=== PATIENT | male | born 1945 | race Caucasian/White ===

== ENCOUNTER → 2016-09-01 | Outpatient (CLI) | payer MEDICARE ==
[2016-09-01 10:02] LABS: BASO # 0.1 x10^3/uL (0.0-0.2); BASO % 1 % (0-3); EOS % 3 % (0-3); HEMATOCRIT 43.3 % (39.0-53.0); HEMOGLOBIN 14.8 g/dL (13.0-17.5); LYMPH # 1.9 x10^3/uL (1.0-4.8); LYMPH % 24 % (24-48); MEAN CORPUSCULAR HEMOGLOBIN 31 pg (25-35); MEAN CORPUSCULAR HGB CONC 34 g/dL (31-37); MEAN CORPUSCULAR VOLUME 91 fL (79-100); MONO % 10 % (0-9); NEUT % 63 % (31-73); PLATELET COUNT 288 x10^3/uL (140-400); RED BLOOD COUNT 4.77 x10^6/uL (4.30-5.70); RED CELL DISTRIBUTION WIDTH 12.9 % (11.5-14.5); WHITE BLOOD COUNT 7.8 x10^3/uL (4.0-11.0)
[2016-09-01 10:29] LABS: ALBUMIN 3.7 g/dL (3.4-5.0); CALCIUM 9.2 mg/dL (8.5-10.1); CREATININE 1.4 mg/dL (0.7-1.3); GFR 50.1; PHOSPHORUS 2.6 mg/dL (2.6-4.7); POTASSIUM 4.3 mmol/L (3.5-5.1)
[2016-09-02 04:19] LABS: PTH INTACT 27 pg/mL (15-65)
== END | disposition home or self-care (01) ==
LOC: LAB 09:26
PROVIDERS: ATTEND Internal Medicine Nephrology
DX: N18.3 Chronic kidney disease, stage 3 (moderate) (principal)
CPT/HCPCS: 36415; 80069; 83970; 85027

== ENCOUNTER → 2016-09-19 | Outpatient (CLI) | payer MEDICARE ==
[2016-09-19 08:23] LABS: ALBUMIN 3.9 g/dL (3.4-5.0); ALBUMIN/GLOBULIN RATIO 0.9 (1.0-1.7); CALCIUM 9.3 mg/dL (8.5-10.1); CREATININE 1.4 mg/dL (0.7-1.3); GFR 50.1; POTASSIUM 4.7 mmol/L (3.5-5.1); TOTAL BILIRUBIN 0.6 mg/dL (0.2-1.0); TOTAL PROTEIN 8.1 g/dL (6.4-8.2)
[2016-09-19 08:27] LABS: CHOLESTEROL/HDL RATIO 5.9
[2016-09-19 08:32] LABS: FREE T4 0.9 ng/dL (0.76-1.46)
== END | disposition home or self-care (01) ==
LOC: LAB 07:26
PROVIDERS: ATTEND Internal Medicine Cardiovascular Disease
DX: Z00.00 Encounter for general adult medical examination without abnormal findings (principal); Z12.5 Encounter for screening for malignant neoplasm of prostate; Z79.899 Other long term (current) drug therapy
CPT/HCPCS: 36415; 80053; 80061; 82043; 82570; 84439; 84443; G0103

== ENCOUNTER 2016-11-23 15:19 | Emergency (ER) | payer BC, MEDICARE ==
[~2016-11-23] VITALS: Ht 188 cm; Wt 140.6 kg
[2016-11-23 15:35] VITALS: BP 140/69
[2016-11-23] MEDS ORDERED: LIDOCAINE 1% / SOD BICARB 8.4% 20 ML VIAL. IJ ONE (15:45)
--- NOTE | 2016-11-23 15:48 | PHYS DOC ---
Past Medical History Past Medical History: Diabetes-Type II, Other Additional Past Medical Histor: OSTEOARTHRITIS, SKIN CANCER, NEUROPATHY Past Surgical History: Knee Replacement, Other Additional Past Surgical Histo: BILATERAL KNEE Alcohol Use: Rarely Drug Use: None Adult General Chief Complaint Chief Complaint: LACERATION/AVULSION [place] [employer] HPI Patient is a 71 year old male presents the emergency Department today with complaint of a facial/mouth injury as well as right elbow injury secondary to a fall from standing position onto a concrete walkway. Patient slipped on wet surface and was unable to gain any traction until he stumbled down a small hill and fell onto a concrete sidewalk. Patient states he struck his face on the sidewalk. He denies loss of consciousness. He denies taking anticoagulants. He denies being dazed or having memory lapses. He states that he's had a tetanus shot within the past 10 years but does not know specifically where after. Review of Systems Review of Systems Constitutional: Denies fever or chills [] Eyes: Denies change in visual acuity, redness, or eye pain [] HENT: Denies nasal congestion or sore throat [] Respiratory: Denies cough or shortness of breath [] Cardiovascular: No additional information not addressed in HPI [] GI: Denies abdominal pain, nausea, vomiting, bloody stools or diarrhea [] : Denies dysuria or hematuria [] Musculoskeletal: Denies back pain or joint pain [] Integument: Denies rash or skin lesions [] Neurologic: Denies headache, focal weakness or sensory changes [] Endocrine: Denies polyuria or polydipsia [] Current Medications Current Medications Current Medications Medications (Trade) Dose Ordered Sig/Meghana Start Time Stop Time Status Last Admin Dose Admin Acetaminophen/ Hydrocodone Bitart (Lortab 5/325) 1 tab 1X ONCE 11/23/16 16:00 11/23/16 16:05 DC 11/23/16 16:05 1 TAB Diphtheria/ Tetanus/Acell Pertussis (Boostrix) 0.5 ml ONCE ONCE 11/23/16 16:00 11/23/16 16:05 DC 11/23/16 15:48 0.5 ML Lidocaine/Sodium Bicarbonate (Buffered Lidocaine 1%) 20 ml 1X ONCE 11/23/16 15:45 11/23/16 16:05 DC 11/23/16 15:48 20 ML Allergies Allergies Allergies Coded Allergies Type Severity Reaction Last Updated Verified No Known Drug Allergies 11/23/16 No Physical Exam Physical Exam Constitutional: Well developed, well nourished, no acute distress, non-toxic appearance. Patient walked into the emergency department with a steady, unaided gait. HENT: Normocephalic, bilateral external ears normal, oropharynx moist, no oral exudates, nose normal. Patient has an irregular, abraded laceration above his right upper lip. His nose and facial bones are normal in appearance and nontender to palpation. There is no malocclusion or trismus. Patient's right anterior and lateral maxillary incisors are impacted, but otherwise stable in the tooth socket. There is no tongue or other dental injuries. Patient has no complaints of pain to his mandible. Eyes: PERRLA, EOMI, conjunctiva normal, no discharge. [] Neck: Normal range of motion, no tenderness, supple, no stridor. Patient has no complaints of neck pain. Cardiovascular:Heart rate regular rhythm, no murmur [] Lungs & Thorax: Bilateral breath sounds clear to auscultation [] Abdomen: Bowel sounds normal, soft, no tenderness, no masses, no pulsatile masses. [] Skin: Warm, dry, no erythema, no rash. [] Back: No tenderness, no CVA tenderness. [] Extremities: Right shoulder is normal in appearance and nontender palpation. Right elbow with mild bruising and swelling to the posterior lateral aspect of the elbow. There is no palpable defect, deformity, instability or crepitus. Patient is able to flex, extend, pronate and supinate without difficulty. Right forearm, wrist and hand are normal in appearance and nontender to palpation. Right hand is neurovascularly intact with capillary refill is 2 seconds in the fingers. Neurologic: Alert and oriented X 3, normal motor function, normal sensory function, no focal deficits noted. Psychologic: Affect normal, judgement normal, mood normal. [] Current Patient Data Vital Signs Vital Signs Date Time Temp Pulse Resp B/P Pulse Ox O2 Delivery O2 Flow Rate FiO2 11/23/16 15:35 98.2 96 20 95 Room Air 98.2 EKG EKG [] Radiology/Procedures Radiology/Procedures [facility] [address] [place] [address] IMAGING REPORT Signed PATIENT: VERONICA BONILLA ACCOUNT: [id number] : 1945 LOCATION: ER AGE: 71 SEX: M EXAM STATUS: REG ER ORD. PHYSICIAN: SERGIO MARSH REASON: pain after fall PROCEDURE: ELBOW RIGHT 3V Right elbow, 3 views, 11/23/2016: History: Trauma, pain There are moderate degenerative change at the elbow joint with prominent spurs. There is bowing of the anterior fat pad compatible with a small joint effusion. On one view there is a sharp linear lucency projected over the proximal radius. The appearance suggests a nondisplaced fracture, although this cannot be confirmed on the other views. IMPRESSION: 1. Moderate degenerative change. 2. Possible nondisplaced fracture of the proximal radius. 3. Elbow joint effusion. DICTATED and SIGNED BY: MALIK HDZ MD DATE: 11/23/161606 CC: SERGIO MARSH; VANDANA FROST MD; NON,STAFF ~ Procedure note: 2.5cm stellate laceration above right upper lip that is through and through was anesthetized with buffered 1% lidocaine. Wound was cleansed with Betadine solution and rinsed with saline. The cutaneous laceration was approximated utilizing 5-0 nylon in a simple interrupted fashion of a single layered closure for total of 5 stitches. 1.5 cm irregular laceration of the buccal mucosa was closed with 5-0 Vicryl in a simple interrupted fashion of a single-layer closure for total of 2 stitches. Patient tolerated the procedure well. Course & Med Decision Making Course & Med Decision Making Pertinent Labs and Imaging studies reviewed. (See chart for details) [] Dragon Disclaimer Dragon Disclaimer This electronic medical record was generated, in whole or in part, using a voice recognition dictation system. Departure Departure Impression: Primary Impression: Fracture of proximal end of radius Additional Impressions: Intraoral laceration Dental injury Disposition: 01 HOME, SELF-CARE Condition: IMPROVED Referrals: VANDANA FROST MD (PCP) CHIRS PORTER MD Patient Instructions: Arm Sling Use, [id number], Dental Injury, Mouth Laceration, [id number], Radial Head Fracture, Byeh-pr-Mbha Additional Instructions: 1. Take the medication as prescribed. 2. The sutures on the outside of the lip need to be removed in 5 days. The sutures on the inside of the lip will dissolve on their own. 3. Contact your dentist tomorrow to schedule follow-up appointment. Call the orthopedic doctor's number listed in this paperwork tomorrow to schedule follow- up appointment. 4. Review the discharge instructions provided for self-care and reasons to return to the emergency department. Scripts Amoxicillin 500 Mg [id number] Mg PO TID #30 CAP Prov:SERGIO MARSH 11/23/16 Hydrocodone/Apap 5-325 (Lafferty 5-325 Tablet)1 Each Tablet1 Tab PO PRN Q6HRS PRN PAIN #15 TAB Prov:SERGIO MARSH 11/23/16 Problem Qualifiers SERGIO MARSH November 23, 2016 15:48
[2016-11-23] MEDS ORDERED: HYDROCODONE/APAP 5/325MG TABLET. PO ONE (16:00)
[2016-11-23] MEDS ORDERED: DIPHTH,PERTUSS(ACELL),TET TOX 0.5 ML DISP.SYRIN. VAX IM ONE (16:00)
--- NOTE | 2016-11-23 16:12 | RAD ---
Right elbow, 3 views, 11/23/2016: History: Trauma, pain There are moderate degenerative change at the elbow joint with prominent spurs. There is bowing of the anterior fat pad compatible with a small joint effusion. On one view there is a sharp linear lucency projected over the proximal radius. The appearance suggests a nondisplaced fracture, although this cannot be confirmed on the other views. IMPRESSION: 1. Moderate degenerative change. 2. Possible nondisplaced fracture of the proximal radius. 3. Elbow joint effusion.
[2016-11-23] MEDS ORDERED: AMOX500C PO (16:41)
[2016-11-23] MEDS ORDERED: HYDR-971 PO (16:41)
== END 2016-11-23 16:47 | disposition home or self-care (01) ==
LOC: ER 15:19
DX: S52.101A Unspecified fracture of upper end of right radius, initial encounter for closed fracture (principal); S01.512A Laceration without foreign body of oral cavity, initial encounter; S09.93XA Unspecified injury of face, initial encounter; E11.9 Type 2 diabetes mellitus without complications; Z96.659 Presence of unspecified artificial knee joint; M19.90 Unspecified osteoarthritis, unspecified site; W01.0XXA Fall on same level from slipping, tripping and stumbling without subsequent striking against object, initial encounter; Y93.89 Activity, other specified; Y92.89 Other specified places as the place of occurrence of the external cause; Y99.8 Other external cause status
CPT/HCPCS: 12013; 73080; 90471; 90715; 99284-25

== ENCOUNTER 2017-01-25 10:46 | Inpatient (IN) | payer BC ==
[~2017-01-25] VITALS: Ht 188 cm; Wt 138.3 kg
[~2017-01-25 10:46] MED LIST: AMOX500C PO; HYDR-971 PO
[2017-01-25] MEDS ORDERED: DEXTROSE ORAL GEL 15 GM TUBE. ONE ×2 (11:30→11:44)
[2017-01-25 11:41] VITALS: BP 136/92
[2017-01-25] MEDS ORDERED: DEXTROSE 50% 25 GM / 50ML DISP.SYRIN. IV PRN ×2 (11:45→20:15)
[2017-01-25] MEDS ORDERED: DEXTROSE ORAL GEL 15 GM TUBE. PO PRN (11:45)
[2017-01-25] MEDS ORDERED: FUROSEMIDE 40 MG/4 ML VIAL. IVP ONE (11:45)
[2017-01-25] MEDS ORDERED: ENOXAPARIN 40 MG/0.4 ML SYRINGE. SQ SCH (11:45)
[2017-01-25 12:28] LABS: BASO % 1 % (0-3); EOS % 2 % (0-3); HEMATOCRIT 35.2 % (39.0-53.0); HEMOGLOBIN 11.4 g/dL (13.0-17.5); LYMPH # 0.9 x10^3/uL (1.0-4.8); LYMPH % 10 % (24-48); MEAN CORPUSCULAR HEMOGLOBIN 30 pg (25-35); MEAN CORPUSCULAR HGB CONC 32 g/dL (31-37); MEAN CORPUSCULAR VOLUME 92 fL (79-100); MONO % 10 % (0-9); NEUT % 79 % (31-73); PLATELET COUNT 459 x10^3/uL (140-400); RED BLOOD COUNT 3.81 x10^6/uL (4.30-5.70); RED CELL DISTRIBUTION WIDTH 16.7 % (11.5-14.5); WHITE BLOOD COUNT 9.5 x10^3/uL (4.0-11.0)
[2017-01-25 12:47] LABS: ALBUMIN 3.2 g/dL (3.4-5.0); ALBUMIN/GLOBULIN RATIO 0.6 (1.0-1.7); CALCIUM 8.4 mg/dL (8.5-10.1); CREATININE 1.6 mg/dL (0.7-1.3); GFR 42.9; POTASSIUM 4.2 mmol/L (3.5-5.1); TOTAL BILIRUBIN 0.6 mg/dL (0.2-1.0); TOTAL PROTEIN 8.2 g/dL (6.4-8.2)
--- NOTE | 2017-01-25 13:38 | PDOC2 ---
CARDIAC CONSULT DATE OF CONSULT Date of Consult DATE: 01/25/17 TIME: 13:25 REASON FOR CONSULT Reason for Consult: CHF Exacerbation REFERRING PHYSICIAN Referring Physician: Dr. Pastrana SOURCE Source: Chart review, Patient HISTORY OF PRESENT ILLNESS HISTORY OF PRESENT ILLNESS This is a 71 yo male who presented secondary to shortness of breath and LE edema. Patient reports symptoms have been present for the last couple of weeks. SOA worse recently. Associated with orthopnea. No chest pain, palpitations, dizziness, diaphoresis, or nausea/vomiting. Undergoing workup/preop evaluation for gastric bypass. Recently diagnosed with CLINT. No known h/o CHF. Cardiac cath 6-7 years ago with non-obstructive disease. PAST MEDICAL HISTORY Cardiovascular: CAD (nonobstructive ), HTN, Hyperlipidemia Pulmonary: Other (OAS) GI: GERD Heme/Onc: No pertinent hx, Other (Gorlin syndrome ) Hepatobiliary: No pertinent hx Psych: No pertinent hx Musculoskeletal: Osteoarthritis Rheumatologic: No pertinent hx Infectious disease: No pertinent hx ENT: No pertinent hx Renal/: Chronic renal insuff Endocrine: Diabetes Dermatology: No pertinent hx PAST SURGICAL HISTORY Past Surgical History: Total knee replacement (bilateral ) FAMILY HISTORY Family History: Coronary Artery Disease, Hypertension, Other (Gorlin syndrome ) SOCIAL HISTORY Smoke: No ALCOHOL: none Drugs: None Lives: with Family CURRENT MEDICATIONS CURRENT MEDICATIONS Current Medications Medications (Trade) Dose Ordered Sig/Meghana Route PRN Reason Start Time Stop Time Status Last Admin Dose Admin Furosemide (Lasix) 40 mg 1X ONCE IVP 01/25/17 11:45 01/25/17 11:46 DC 01/25/17 12:02 ALLERGIES ALLERGIES: Coded Allergies: No Known Drug Allergies (Unverified , 11/23/16) ROS Review of System 14 point ROS conducted with pertinent positives noted above in HPI. PHYSICAL EXAM General: Alert, Oriented X3, Cooperative, mild distress HEENT: Atraumatic, Mucous membr. moist/pink Lungs: Other (bibasilar crackles ) Heart: Regular rate, Normal S1, Normal S2, Other (distant heart tones ) Abdomen: Soft, No tenderness Extremities: Other (2+ bilateral LE pitting edema ) Skin: No significant lesion Neuro: Normal speech, Sensation intact Psych/Mental Status: Mental status NL, Mood NL MUSCULOSKELETAL: Osteoarthritic changes both hands VITALS VITALS Vital Signs Date Time Temp Pulse Resp B/P (MAP) Pulse Ox O2 Delivery O2 Flow Rate FiO2 7/5/17 11:41 98.9 82 24 136/92 (107) 94 Room Air 98.9 LABS Lab: Laboratory Tests Test 01/25/17 11:37 01/25/17 12:05 01/25/17 12:15 Glucose (Fingerstick) 35 mg/dL (70-99) 67 mg/dL (70-99) White Blood Count 9.5 x10^3/uL (4.0-11.0) Red Blood Count 3.81 x10^6/uL (4.30-5.70) Hemoglobin 11.4 g/dL (13.0-17.5) Hematocrit 35.2 % (39.0-53.0) Mean Corpuscular Volume 92 fL (79-100) Mean Corpuscular Hemoglobin 30 pg (25-35) Mean Corpuscular Hemoglobin Concent 32 g/dL (31-37) Red Cell Distribution Width 16.7 % (11.5-14.5) Platelet Count 459 x10^3/uL (140-400) Neutrophils (%) (Auto) 79 % (31-73) Lymphocytes (%) (Auto) 10 % (24-48) Monocytes (%) (Auto) 10 % (0-9) Eosinophils (%) (Auto) 2 % (0-3) Basophils (%) (Auto) 1 % (0-3) Neutrophils # (Auto) 7.4 x10^3uL (1.8-7.7) Lymphocytes # (Auto) 0.9 x10^3/uL (1.0-4.8) Monocytes # (Auto) 0.9 x10^3/uL (0.0-1.1) Eosinophils # (Auto) 0.2 x10^3/uL (0.0-0.7) Basophils # (Auto) 0.0 x10^3/uL (0.0-0.2) Sodium Level 144 mmol/L (136-145) Potassium Level 4.2 mmol/L (3.5-5.1) Chloride Level 109 mmol/L (98-107) Carbon Dioxide Level 26 mmol/L (21-32) Anion Gap 9 (6-14) Blood Urea Nitrogen 32 mg/dL (8-26) Creatinine 1.6 mg/dL (0.7-1.3) Estimated GFR (Cockcroft-Gault) 42.9 BUN/Creatinine Ratio 20 (6-20) Glucose Level 73 mg/dL (70-99) Calcium Level 8.4 mg/dL (8.5-10.1) Magnesium Level 2.1 mg/dL (1.8-2.4) Total Bilirubin 0.6 mg/dL (0.2-1.0) Aspartate Amino Transf (AST/SGOT) 68 U/L (15-37) Alanine Aminotransferase (ALT/SGPT) 71 U/L (16-63) Alkaline Phosphatase 75 U/L (46-116) AH-Iiq-L-Type Natriuretic Peptide 466 pg/mL (0-124) Total Protein 8.2 g/dL (6.4-8.2) Albumin 3.2 g/dL (3.4-5.0) Albumin/Globulin Ratio 0.6 (1.0-1.7) ASSESSMENT/PLAN ASSESSMENT/PLAN 1. Acute on chronic heart failure 2. Hypertension; controlled 3. Hyperlipidemia 4. CAD; reportedly non-obstructive 5. CLINT 6. Diabetes 7. CKD 8. Morbid obesity Recommendations Check lipids, TSH, Mg Obtain echo to assess LV function Diuresis with monitoring of renal function CXR pending Consider further ischemic workup given history/risk factors to r/o obstructive CAD as contributor to dyspnea Further recommendations pending diagnostics. Problems: SABINO CLEMENTE APRN Jan 25, 2017 13:38
[2017-01-25 13:47] LABS: BILIRUBIN,URINE NEGATIVE (NEG); GLUCOSE,URINE NEGATIVE (NEG); NITRITE,URINE NEGATIVE (NEG); PROTEIN,URINE NEGATIVE (NEG-TRACE); UROBILINOGEN,URINE 0.2 mg/dL (0.2 mg/dL)
[2017-01-25 14:17] LABS: BACTERIA,URINE 0 /HPF (0-FEW); RBC,URINE 0 /HPF (0-2); WBC,URINE OCC /HPF (0-4)
--- NOTE | 2017-01-25 14:20 | EKG ---
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
--- NOTE | 2017-01-25 14:53 | RAD ---
Indication shortness of breath. History of congestive heart failure. 2 frontal views of the chest were obtained as well as a lateral view. Comparison is made to an examination 06/11/2010. There is generalized cardiomegaly. There is no congestive heart failure. A focal infiltrate is not seen. Significant pleural fluid is not seen. There is no pneumothorax. IMPRESSION: Generalized cardiomegaly. No focal or acute process is seen in the chest
[2017-01-25 14:54] VITALS: BP 109/71
[2017-01-25] MEDS: ASPIRIN ENTERIC COATED 81 MG TABLET.DR. PO SCH (15:00)
[2017-01-25] MEDS ORDERED: INSULIN ASPART 300 UNITS/3 ML INSULN.PEN SQ PRN (16:30)
--- NOTE | 2017-01-25 16:35 | CARD ---
APPROVED REPORT EXAM: Two-dimensional and M-mode echocardiogram with Doppler and color Doppler. Other Information Quality : GoodHR: 83bpm Rhythm : NSR INDICATION Dyspnea RISK FACTORS Obesity 2D DIMENSIONS RVDd3.4 (2.9-3.5cm)Left Atrium(2D)4.4 (1.6-4.0cm) IVSd0.9 (0.7-1.1cm)Aortic Root(2D)3.1 (2.0-3.7cm) LVDd4.9 (3.9-5.9cm)LVOT Diameter2.4 (1.8-2.4cm) PWd1.0 (0.7-1.1cm)LVDs3.2 (2.5-4.0cm) FS (%) 34.3 %SV69.6 ml LVEF(%)63.2 (>50%) Aortic Valve AoV Peak Marcos.170.7cm/sAoV VTI27.5cm AO Peak GR.11.7mmHgLVOT Peak Marcos.97.3cm/s AO Mean GR.6mmHgAVA (VMAX)2.48cm2 AI P 1/2 [id number] Mitral Valve MV E Wanvqoyt97.9cm/sMV E Peak Gr.3mmHg MV DECEL [id number] A Sbtrzepq44.9cm/s MV E Mean Gr.1mmHgE/A Ratio0.6 MV A [id number] Pulmonary Valve PV Peak Bjkpfuzs39.9cm/s Pulmonary Vein S1 Geuqrznn31.3cm/sD2 Xbhrotqt09.9cm/s PVa [id number] LEFT VENTRICLE The left ventricle is normal size. There is normal left ventricular wall thickness. The left ventricu lar systolic function is normal. The Ejection Fraction is 55-60%. There is normal LV segmental wall m otion. Transmitral Doppler flow pattern is Grade I-abnormal relaxation pattern. RIGHT VENTRICLE The right ventricle is normal size. There is normal right ventricular wall thickness. The right ventr icular systolic function is normal. ATRIA The left atrium size is normal. The right atrium size is normal. The interatrial septum is intact wit h no evidence for an atrial septal defect or patent foramen ovale as noted on 2-D or Doppler imaging. AORTIC VALVE The aortic valve is not well visualized but appears mildly calcified and opens well. Doppler and [place] r Flow revealed mild aortic regurgitation. There is no significant aortic valvular stenosis. MITRAL VALVE Mitral annular calcification is mild. The mitral valve leaflets are thickened. There is no evidence o f mitral valve prolapse. There is no mitral valve stenosis. Doppler and Color Flow revealed no mitral valve regurgitation noted. TRICUSPID VALVE Doppler and Color Flow revealed no tricuspid valve regurgitation noted. Unable to determine pulmonary artery pressure at exam time. PULMONIC VALVE The pulmonary valve is not well visualized but appears to opens well. Doppler and Color Flow revealed no pulmonic valvular regurgitation. There is no pulmonic valvular stenosis by spectral Doppler. GREAT VESSELS The aortic root is normal in size. The ascending aorta is normal in size. The pulmonary artery is nor mal. The IVC is dilated and does not collapse with inspiration. PERICARDIAL EFFUSION There is small right pleural effusion. Small amount of acites was noted in the subxiphoid region. The re is a moderate circumferential pericardial effusion. There is no evidence of diastolic compression of the right atrium at this time. There are no echocardiographic indications of cardiac tamponade. Critical Notification Critical Value: No <Conclusion> The left ventricular systolic function is normal. The Ejection Fraction is 55-60%. There is normal LV segmental wall motion. Transmitral Doppler flow pattern is Grade I-abnormal relaxation pattern. Doppler and Color Flow revealed mild aortic regurgitation. There is a moderate circumferential pericardial effusion. There are no echocardiographic indications of cardiac tamponade.
[2017-01-25] MEDS: FUROSEMIDE 40 MG/4 ML VIAL. IVP SCH (16:42)
[2017-01-25 17:41] VITALS: BP 136/92
[2017-01-25 19:41] VITALS: BP 114/67
[2017-01-25] MEDS ORDERED: POTA20TA4 PO (20:00)
[2017-01-25] MEDS ORDERED: ASPI-482 PO (20:00)
[2017-01-25] MEDS ORDERED: OMEG1CAP27 PO (20:00)
[2017-01-25] MEDS ORDERED: METO200T3 PO (20:00)
[2017-01-25] MEDS ORDERED: POTA20TA82 PO (20:00)
[2017-01-25] MEDS ORDERED: ATOR40TA59 PO (20:00)
[2017-01-25] MEDS ORDERED: LOSA1TAB18 PO (20:00)
[2017-01-25] MEDS ORDERED: METF750T2 PO (20:00)
[2017-01-25] MEDS ORDERED: FENO145T2 PO (20:00)
[2017-01-25] MEDS ORDERED: INSULIN DETEMIR 300 UNITS/3 ML INSULN.PEN. SQ SCH (21:00)
[2017-01-25] MEDS: ATORVASTATIN CALCIUM 40 MG TABLET. PO SCH (22:07)
[2017-01-25 22:08] VITALS: BP 113/75
[2017-01-26 03:16] VITALS: BP 112/69
[2017-01-26 04:11] LABS: CALCIUM 8.1 mg/dL (8.5-10.1); CREATININE 1.5 mg/dL (0.7-1.3); GFR 46.3; POTASSIUM 3.5 mmol/L (3.5-5.1)
[2017-01-26 04:19] LABS: CHOLESTEROL/HDL RATIO 3.7
[2017-01-26 07:00] VITALS: BP 130/73
[2017-01-26] MEDS ORDERED: metFORMIN XR 500 MG TAB.ER.24H PO SCH (08:00)
--- NOTE | 2017-01-26 08:46 | PDOC1 ---
History and Physical Date of Admission Date of Admission DATE: 01/25/17 TIME: 08:44 Past Medical History Cardiovascular: CAD (nonobstructive ), HTN, Hyperlipidemia Pulmonary: Other (OAS) GI: GERD Heme/Onc: No pertinent hx, Other (Gorlin syndrome ) Hepatobiliary: No pertinent hx Psych: No pertinent hx Musculoskeletal: Osteoarthritis Rheumatologic: No pertinent hx Infectious disease: No pertinent hx ENT: No pertinent hx Renal/: Chronic renal insuff Endocrine: Diabetes Dermatology: No pertinent hx Past Surgical History Past Surgical History: Total knee replacement (bilateral ) Family History Family History: Coronary Artery Disease, Hypertension, Other (Gorlin syndrome ) Social History Smoke: No ALCOHOL: none Drugs: None Current Medications Current Medications Current Medications Furosemide (Lasix) 40 mg [id number] IVP Last administered on 01/25/17 16:42; Start 01/25/17 at 14:00 Furosemide (Lasix) 40 mg 1X ONCE IVP Last administered on 01/25/17 12:02; Start 01/25/17 at 11:45; Stop 01/25/17 at 11:46; Status DC Glucose (Insta-Glucose) 15 gm STK-MED ONCE .ROUTE ; Start 01/25/17 at 11:44; Stop 01/25/17 at 11:45; Status DC Insulin Detemir (Levemir) 60 units BID SQ ; Start 01/25/17 at 21:00; Stop at 05:31; Status DC Dextrose (Dextrose 50%-Water Syringe) 12.5 gm PRN Q15MIN PRN IV SEE COMMENTS; Start 01/25/17 at 11:45 Glucose (Insta-Glucose) 15 gm PRN Q15MIN PRN PO LOW BLOOD SUGAR; Start 01/25/17 at 11:45 Insulin Aspart (NovoLOG) 25 units PRN TID PRN SQ IF FSBG IS >150 AC; Start 01/25 at 16:30; Stop 01/26/17 at 05:31; Status DC Enoxaparin Sodium (Lovenox 40mg Syringe) 40 mg Q24H SQ Last administered on 01/25 16:42; Start 01/25/17 at 11:45 Aspirin (Ecotrin) 81 mg DAILYWBKFT PO ; Start 01/25/17 at 15:00 Aspirin (Ecotrin) 81 mg DAILY PO ; Start 01/26/17 at 09:00; Status UNV Atorvastatin Calcium (Lipitor) 40 mg QHS PO Last administered on 01/25/17t 22:07 ; Start 01/25/17 at 21:00 Fenofibrate (Lofibra) 134 mg DAILY PO ; Start 01/26/17 at 09:00 Losartan Potassium (Cozaar) 100 mg DAILY PO ; Start 01/26/17 at 09:00 Metformin HCl (Glucophage Xr) 500 mg DAILYWBKFT PO ; Start 01/26/17 at 08:00; Stop 01/26/17 at 08:00; Status DC Metoprolol Succinate (Toprol Xl) 200 mg DAILY PO ; Start 01/26/17 at 09:00 Fish Oil (Fish Oil) 1,000 mg DAILY PO ; Start 01/26/17 at 09:00 Potassium Chloride (Klor-Con) 20 meq DAILYWBKFT PO ; Start 01/26/17 at 08:00 Dextrose (Dextrose 50%-Water Syringe) 12.5 gm PRN Q15MIN PRN IV SEE COMMENTS; Start 01/25/17 at 20:15 Hydrochlorothiazide (Microzide) 12.5 mg DAILY PO ; Start 01/26/17 at 09:00 Glucose (Insta-Glucose) 15 gm STK-MED ONCE .ROUTE ; Start 01/25/17 at 11:30; Stop 01/25/17 at 20:08; Status DC Active Scripts Active Amoxicillin 500 Mg Capsule 500 Mg PO TID [place] 5-325 Tablet (Acetaminophen/Hydrocodone Bitart) 1 Each Tablet 1 Tab PO PRN Q6HRS PRN Reported Klor-Con M20 (Potassium Chloride) 20 Meq Tab.er.prt 1 Tab PO DAILY Losartan-Hctz 100-12.5 Mg Tab (Losartan/Hydrochlorothiazide) 1 Each Tablet 1 Tab PO DAILY Metoprolol Succinate ( Xl ) (Metoprolol Succinate) 200 Mg Tab.er.24h 1 Tab PO DAILY Metformin Hcl Er (Metformin Hcl) 750 Mg Tab.er.24h 750 Mg PO DAILYWBKFT Fenofibrate (Fenofibrate Nanocrystallized) 145 Mg Tablet 1 Tab PO DAILY Atorvastatin Calcium 40 Mg Tablet 1 Tab PO QHS Potassium Chloride 20 Meq Tablet.er 20 Meq PO DAILY Aspir 81 (Aspirin) 81 Mg Tablet.dr 1 Tab PO DAILY Fish Oil 1,000 Mg Softgel ([place]-3 Fatty Acids/Fish Oil) 1 Each Capsule 1 Each PO DAILY Allergies Allergies: Coded Allergies: No Known Drug Allergies (Unverified , 11/23/16) Vitals Vitals Vital Signs Date Time Temp Pulse Resp B/P (MAP) Pulse Ox O2 Delivery O2 Flow Rate FiO2 01/26/17 07:00 97.8 85 22 130/73 (92) 94 97.8 01/26/17 03:16 Room Air 01/25/17 22:08 2.0 Labs Labs Laboratory Tests Test 01/25/17 11:37 01/25/17 12:05 01/25/17 12:15 01/25/17 13:04 Glucose (Fingerstick) 35 mg/dL (70-99) 67 mg/dL (70-99) White Blood Count 9.5 x10^3/uL (4.0-11.0) Red Blood Count 3.81 x10^6/uL (4.30-5.70) Hemoglobin 11.4 g/dL (13.0-17.5) Hematocrit 35.2 % (39.0-53.0) Mean Corpuscular Volume 92 fL (79-100) Mean Corpuscular Hemoglobin 30 pg (25-35) Mean Corpuscular Hemoglobin Concent 32 g/dL (31-37) Red Cell Distribution Width 16.7 % (11.5-14.5) Platelet Count 459 x10^3/uL (140-400) Neutrophils (%) (Auto) 79 % (31-73) Lymphocytes (%) (Auto) 10 % (24-48) Monocytes (%) (Auto) 10 % (0-9) Eosinophils (%) (Auto) 2 % (0-3) Basophils (%) (Auto) 1 % (0-3) Neutrophils # (Auto) 7.4 x10^3uL (1.8-7.7) Lymphocytes # (Auto) 0.9 x10^3/uL (1.0-4.8) Monocytes # (Auto) 0.9 x10^3/uL (0.0-1.1) Eosinophils # (Auto) 0.2 x10^3/uL (0.0-0.7) Basophils # (Auto) 0.0 x10^3/uL (0.0-0.2) Sodium Level 144 mmol/L (136-145) Potassium Level 4.2 mmol/L (3.5-5.1) Chloride Level 109 mmol/L (98-107) Carbon Dioxide Level 26 mmol/L (21-32) Anion Gap 9 (6-14) Blood Urea Nitrogen 32 mg/dL (8-26) Creatinine 1.6 mg/dL (0.7-1.3) Estimated GFR (Cockcroft-Gault) 42.9 BUN/Creatinine Ratio 20 (6-20) Glucose Level 73 mg/dL (70-99) Calcium Level 8.4 mg/dL (8.5-10.1) Magnesium Level 2.1 mg/dL (1.8-2.4) Total Bilirubin 0.6 mg/dL (0.2-1.0) Aspartate Amino Transf (AST/SGOT) 68 U/L (15-37) Alanine Aminotransferase (ALT/SGPT) 71 U/L (16-63) Alkaline Phosphatase 75 U/L (46-116) XE-Hel-G-Type Natriuretic Peptide 466 pg/mL (0-124) Total Protein 8.2 g/dL (6.4-8.2) Albumin 3.2 g/dL (3.4-5.0) Albumin/Globulin Ratio 0.6 (1.0-1.7) Urine Collection Type Unknown Urine Color Yellow Urine Clarity Clear Urine pH 5.0 Urine Specific [place] 1.010 Urine Protein Negative mg/dL (NEG-TRACE) Urine Glucose (UA) Negative mg/dL (NEG) Urine Ketones (Stick) Negative mg/dL (NEG) Urine Blood Negative (NEG) Urine Nitrite Negative (NEG) Urine Bilirubin Negative (NEG) Urine Urobilinogen Dipstick 0.2 mg/dL (0.2 mg/dL) Urine Leukocyte Esterase Negative (NEG) Urine RBC 0 /HPF (0-2) Urine WBC Occ /HPF (0-4) Urine Bacteria 0 /HPF (0-FEW) Urine Hyaline Casts Occasional /HPF Urine Mucus Mod /LPF Test 01/25/17 16:38 01/25/17 20:54 01/26/17 03:40 01/26/17 04:40 Glucose (Fingerstick) 76 mg/dL (70-99) 131 mg/dL (70-99) 43 mg/dL (70-99) Sodium Level 145 mmol/L (136-145) Potassium Level 3.5 mmol/L (3.5-5.1) Chloride Level 109 mmol/L (98-107) Carbon Dioxide Level 28 mmol/L (21-32) Anion Gap 8 (6-14) Blood Urea Nitrogen 36 mg/dL (8-26) Creatinine 1.5 mg/dL (0.7-1.3) Estimated GFR (Cockcroft-Gault) 46.3 Glucose Level 37 mg/dL (70-99) Calcium Level 8.1 mg/dL (8.5-10.1) Triglycerides Level 68 mg/dL (0-150) Cholesterol Level 93 mg/dL (0-200) LDL Cholesterol, Calculated 54 mg/dL (0-100) VLDL Cholesterol, Calculated 14 mg/dL (0-40) Non-HDL Cholesterol Calculated 68 mg/dL (0-129) HDL Cholesterol 25 mg/dL (40-60) Cholesterol/HDL Ratio 3.7 Thyroid Stimulating Hormone (TSH) 3.349 uIU/mL (0.358-3.74) Test 01/26/17 04:59 01/26/17 06:21 01/26/17 08:11 Glucose (Fingerstick) 74 mg/dL (70-99) 132 mg/dL (70-99) 107 mg/dL (70-99) Laboratory Tests Test 01/25/17 11:37 01/25/17 12:05 01/25/17 12:15 01/25/17 13:04 Glucose (Fingerstick) 35 mg/dL (70-99) 67 mg/dL (70-99) White Blood Count 9.5 x10^3/uL (4.0-11.0) Red Blood Count 3.81 x10^6/uL (4.30-5.70) Hemoglobin 11.4 g/dL (13.0-17.5) Hematocrit 35.2 % (39.0-53.0) Mean Corpuscular Volume 92 fL (79-100) Mean Corpuscular Hemoglobin 30 pg (25-35) Mean Corpuscular Hemoglobin Concent 32 g/dL (31-37) Red Cell Distribution Width 16.7 % (11.5-14.5) Platelet Count 459 x10^3/uL (140-400) Neutrophils (%) (Auto) 79 % (31-73) Lymphocytes (%) (Auto) 10 % (24-48) Monocytes (%) (Auto) 10 % (0-9) Eosinophils (%) (Auto) 2 % (0-3) Basophils (%) (Auto) 1 % (0-3) Neutrophils # (Auto) 7.4 x10^3uL (1.8-7.7) Lymphocytes # (Auto) 0.9 x10^3/uL (1.0-4.8) Monocytes # (Auto) 0.9 x10^3/uL (0.0-1.1) Eosinophils # (Auto) 0.2 x10^3/uL (0.0-0.7) Basophils # (Auto) 0.0 x10^3/uL (0.0-0.2) Sodium Level 144 mmol/L (136-145) Potassium Level 4.2 mmol/L (3.5-5.1) Chloride Level 109 mmol/L (98-107) Carbon Dioxide Level 26 mmol/L (21-32) Anion Gap 9 (6-14) Blood Urea Nitrogen 32 mg/dL (8-26) Creatinine 1.6 mg/dL (0.7-1.3) Estimated GFR (Cockcroft-Gault) 42.9 BUN/Creatinine Ratio 20 (6-20) Glucose Level 73 mg/dL (70-99) Calcium Level 8.4 mg/dL (8.5-10.1) Magnesium Level 2.1 mg/dL (1.8-2.4) Total Bilirubin 0.6 mg/dL (0.2-1.0) Aspartate Amino Transf (AST/SGOT) 68 U/L (15-37) Alanine Aminotransferase (ALT/SGPT) 71 U/L (16-63) Alkaline Phosphatase 75 U/L (46-116) HG-Uto-E-Type Natriuretic Peptide 466 pg/mL (0-124) Total Protein 8.2 g/dL (6.4-8.2) Albumin 3.2 g/dL (3.4-5.0) Albumin/Globulin Ratio 0.6 (1.0-1.7) Urine Collection Type Unknown Urine Color Yellow Urine Clarity Clear Urine pH 5.0 Urine Specific [place] 1.010 Urine Protein Negative mg/dL (NEG-TRACE) Urine Glucose (UA) Negative mg/dL (NEG) Urine Ketones (Stick) Negative mg/dL (NEG) Urine Blood Negative (NEG) Urine Nitrite Negative (NEG) Urine Bilirubin Negative (NEG) Urine Urobilinogen Dipstick 0.2 mg/dL (0.2 mg/dL) Urine Leukocyte Esterase Negative (NEG) Urine RBC 0 /HPF (0-2) Urine WBC Occ /HPF (0-4) Urine Bacteria 0 /HPF (0-FEW) Urine Hyaline Casts Occasional /HPF Urine Mucus Mod /LPF Test 01/25/17 16:38 01/25/17 20:54 01/26/17 03:40 01/26/17 04:40 Glucose (Fingerstick) 76 mg/dL (70-99) 131 mg/dL (70-99) 43 mg/dL (70-99) Sodium Level 145 mmol/L (136-145) Potassium Level 3.5 mmol/L (3.5-5.1) Chloride Level 109 mmol/L (98-107) Carbon Dioxide Level 28 mmol/L (21-32) Anion Gap 8 (6-14) Blood Urea Nitrogen 36 mg/dL (8-26) Creatinine 1.5 mg/dL (0.7-1.3) Estimated GFR (Cockcroft-Gault) 46.3 Glucose Level 37 mg/dL (70-99) Calcium Level 8.1 mg/dL (8.5-10.1) Triglycerides Level 68 mg/dL (0-150) Cholesterol Level 93 mg/dL (0-200) LDL Cholesterol, Calculated 54 mg/dL (0-100) VLDL Cholesterol, Calculated 14 mg/dL (0-40) Non-HDL Cholesterol Calculated 68 mg/dL (0-129) HDL Cholesterol 25 mg/dL (40-60) Cholesterol/HDL Ratio 3.7 Thyroid Stimulating Hormone (TSH) 3.349 uIU/mL (0.358-3.74) Test 01/26/17 04:59 01/26/17 06:21 01/26/17 08:11 Glucose (Fingerstick) 74 mg/dL (70-99) 132 mg/dL (70-99) 107 mg/dL (70-99) VTE Prophylaxis Ordered VTE Prophylaxis Devices: Yes VTE Pharmacological Prophylaxi: Yes Assessment/Plan Assessment/Plan recent dyspnea, orthopnea, pressure- hx of dm, no cad- has edema and wheezing- will admit for diuresis, labs, cv eval , echo VANDANA FROST MD Jan 26, 2017 08:46
[2017-01-26] MEDS ORDERED: ASPIRIN ENTERIC COATED 81 MG TABLET.DR. PO SCH (09:00)
[2017-01-26] MEDS ORDERED: hydroCHLOROthiazide 12.5 MG CAPSULE PO SCH (09:00)
--- NOTE | 2017-01-26 09:33 | PDOC ---
Provider Note Provider Note still some dyspnea and le edema- all labs, echo wnl- at risk for dvt/pe, will do d dimer, le venous sono- ct chest if d dimer not normal- stilll low glucose off insulin > 24 hrs VANDANA FROST MD Jan 26, 2017 09:33
[2017-01-26] MEDS ORDERED: IOHEXOL 300 MG/ML 75 ML VIAL IV ONE (09:45)
[2017-01-26] MEDS: FENOFIBRATE,MICRONIZED 134 MG CAPSULE PO SCH (09:50)
[2017-01-26] MEDS: OMEGA-3 FATTY ACIDS/FISH OIL 1,000 MG CAPSULE. PO SCH (09:50)
[2017-01-26] MEDS: POTASSIUM CHLORIDE 20 MEQ TABLET.ER. PO SCH (09:50)
[2017-01-26] MEDS: ASPIRIN ENTERIC COATED 81 MG TABLET.DR. PO SCH (09:52)
[2017-01-26] MEDS: METOPROLOL SUCC 24HR ER 100 MG TAB.ER.24H. PO SCH (09:52)
--- NOTE | 2017-01-26 10:36 | RAD ---
Indication bilateral leg edema. Grayscale color Doppler and spectral imaging was performed. The examination targeted to the veins of the lower extremities. Bilaterally the common femoral, femoral and popliteal vessels demonstrate normal flow compressibility and augmentation. No thrombus is seen. The right greater saphenous vein was not well demonstrated. No definite DVT was seen in the calf vessels. IMPRESSION: Negative bilateral lower extremity venous analysis for DVT
[2017-01-26] MEDS: FUROSEMIDE 40 MG/4 ML VIAL. IVP SCH ×2 (10:46→14:10)
[2017-01-26] MEDS: LOSARTAN POTASSIUM 50 MG TABLET. PO SCH (10:47)
[2017-01-26 11:00] VITALS: BP 122/83
--- NOTE | 2017-01-26 11:13 | RAD ---
Indication shortness of air. Contrast imaging through the chest was performed. Examination was tailored for the detection of pulmonary emboli. MIP images were generated and reviewed. Approximately 60 cc of Omnipaque 300 was administered intravenously. Note is made of a previous examination of the chest 10/01/2009. Imaging through the upper abdomen is unremarkable. The thoracic aorta is unremarkable. There is some coronary artery calcification. There is moderate pericardial effusion. There are tiny bilateral pleural effusions. There are few mediastinal lymph nodes. Some calcified right hilar lymph nodes are additionally noted. Pathologic hilar or mediastinal adenopathy is not seen. The study is negative for pulmonary embolus. No acute finding is seen in the chest. There is a 6 mm nodule in the right middle lobe, not present previously. The etiology is unclear but a small neoplastic process is not excluded. The nodule is likely too small to characterize with PET. Follow-up imaging along the lines of the Fleischner criteria should be considered. IMPRESSION: Negative study for pulmonary embolus. New 6 mm nodule in the right middle lobe. Follow-up imaging along the lines of the Fleischner criteria should be considered. Moderate pericardial effusion and small bilateral pleural effusions Nodules detected incidentally at non-screening CT Nodule size (mm) less than or equal to 4 Low Risk patients- no follow-up needed High Risk patients- follow-up at 12 months and if no change, no further imaging needed. Nodule size > 4-6 mm Low risk patients- follow- up at 12 months and if no change, no further imaging needed High risk patients- initial follow-up CT at 6-12 months and then at 18-24 months if no change. Nodule Size > 6-8 mm Low risk patients- initial follow-up CT at 6-12 months and then at 18-24 months if no change. High risk patients- initial follow- up CT at 3-6 months and then at 9-12 months if no change, Nodule Size >8 mm Either low or high risk patients: Follow-up CT at around 3, 9 and 24 [address] contrast [address], PET, and/or biopsy Note: newly detected indeterminate nodule in person 35 years of age or older. Low risk patients- minimal or absent history of smoking and/or other known risk factors. High risk patients- history of smoking or of other known risk factors. PQRS Compliance Statement: One or more of the following individualized dose reduction techniques were utilized for this examination: 1. Automated exposure control 2. Adjustment of the mA and/or kV according to patient size 3. Use of iterative reconstruction technique
[2017-01-26] MEDS ORDERED: ENOXAPARIN 40 MG/0.4 ML SYRINGE. SQ SCH (12:00)
[2017-01-26] MEDS: ALBUTEROL SULFATE 2.5 MG/3 ML NEBU. NEB SCH ×3 (12:28→19:59)
--- NOTE | 2017-01-26 14:33 | PDOC ---
PROGRESS NOTES Subjective Subjective The patient looks and feels better today. Objective Objective Vital Signs Date Time Temp Pulse Resp B/P (MAP) Pulse Ox O2 Delivery O2 Flow Rate FiO2 01/26/17 12:28 92 Room Air 01/26/17 11:00 98.6 92 20 122/83 (96) 98.6 01/26/17 08:00 2.0 Intake and Output 01/26/17 07:00 Intake Total 1300 ml Output Total 1900 ml Balance -600 ml Intake Oral 1300 ml Output Urine Total 1900 ml # Voids 1 Physical Exam Abdomen: Normal bowel sounds Heart: Regular rate General: mild distress Lungs: Other (mildly decreased breath sounds) Assessment Assessment ASSESSMENT/PLAN 1. Acute on chronic heart failure. Improved with diuresis. Echocardiogram shows normal left ventricular systolic function. Additionally there is a mild to moderate pericardial effusion with no evidence of hemodynamic compromise. 2. Hypertension; controlled 3. Hyperlipidemia. Continue present medications. 4. CAD; reportedly non-obstructive 5. CLINT 6. Diabetes 7. CKD monitoring lab. 8. Morbid obesity Comment Review of Relevant I have reviewed the following items amberly (where applicable) has been applied. Labs Laboratory Tests Test 01/25/17 11:37 01/25/17 12:05 01/25/17 12:15 01/25/17 13:04 Glucose (Fingerstick) 35 mg/dL (70-99) 67 mg/dL (70-99) White Blood Count 9.5 x10^3/uL (4.0-11.0) Red Blood Count 3.81 x10^6/uL (4.30-5.70) Hemoglobin 11.4 g/dL (13.0-17.5) Hematocrit 35.2 % (39.0-53.0) Mean Corpuscular Volume 92 fL (79-100) Mean Corpuscular Hemoglobin 30 pg (25-35) Mean Corpuscular Hemoglobin Concent 32 g/dL (31-37) Red Cell Distribution Width 16.7 % (11.5-14.5) Platelet Count 459 x10^3/uL (140-400) Neutrophils (%) (Auto) 79 % (31-73) Lymphocytes (%) (Auto) 10 % (24-48) Monocytes (%) (Auto) 10 % (0-9) Eosinophils (%) (Auto) 2 % (0-3) Basophils (%) (Auto) 1 % (0-3) Neutrophils # (Auto) 7.4 x10^3uL (1.8-7.7) Lymphocytes # (Auto) 0.9 x10^3/uL (1.0-4.8) Monocytes # (Auto) 0.9 x10^3/uL (0.0-1.1) Eosinophils # (Auto) 0.2 x10^3/uL (0.0-0.7) Basophils # (Auto) 0.0 x10^3/uL (0.0-0.2) Sodium Level 144 mmol/L (136-145) Potassium Level 4.2 mmol/L (3.5-5.1) Chloride Level 109 mmol/L (98-107) Carbon Dioxide Level 26 mmol/L (21-32) Anion Gap 9 (6-14) Blood Urea Nitrogen 32 mg/dL (8-26) Creatinine 1.6 mg/dL (0.7-1.3) Estimated GFR (Cockcroft-Gault) 42.9 BUN/Creatinine Ratio 20 (6-20) Glucose Level 73 mg/dL (70-99) Calcium Level 8.4 mg/dL (8.5-10.1) Magnesium Level 2.1 mg/dL (1.8-2.4) Total Bilirubin 0.6 mg/dL (0.2-1.0) Aspartate Amino Transf (AST/SGOT) 68 U/L (15-37) Alanine Aminotransferase (ALT/SGPT) 71 U/L (16-63) Alkaline Phosphatase 75 U/L (46-116) EK-Gws-T-Type Natriuretic Peptide 466 pg/mL (0-124) Total Protein 8.2 g/dL (6.4-8.2) Albumin 3.2 g/dL (3.4-5.0) Albumin/Globulin Ratio 0.6 (1.0-1.7) Urine Collection Type Unknown Urine Color Yellow Urine Clarity Clear Urine pH 5.0 Urine Specific [place] 1.010 Urine Protein Negative mg/dL (NEG-TRACE) Urine Glucose (UA) Negative mg/dL (NEG) Urine Ketones (Stick) Negative mg/dL (NEG) Urine Blood Negative (NEG) Urine Nitrite Negative (NEG) Urine Bilirubin Negative (NEG) Urine Urobilinogen Dipstick 0.2 mg/dL (0.2 mg/dL) Urine Leukocyte Esterase Negative (NEG) Urine RBC 0 /HPF (0-2) Urine WBC Occ /HPF (0-4) Urine Bacteria 0 /HPF (0-FEW) Urine Hyaline Casts Occasional /HPF Urine Mucus Mod /LPF Test 01/25/17 16:38 01/25/17 20:54 01/26/17 03:40 01/26/17 04:40 Glucose (Fingerstick) 76 mg/dL (70-99) 131 mg/dL (70-99) 43 mg/dL (70-99) Sodium Level 145 mmol/L (136-145) Potassium Level 3.5 mmol/L (3.5-5.1) Chloride Level 109 mmol/L (98-107) Carbon Dioxide Level 28 mmol/L (21-32) Anion Gap 8 (6-14) Blood Urea Nitrogen 36 mg/dL (8-26) Creatinine 1.5 mg/dL (0.7-1.3) Estimated GFR (Cockcroft-Gault) 46.3 Glucose Level 37 mg/dL (70-99) Calcium Level 8.1 mg/dL (8.5-10.1) Triglycerides Level 68 mg/dL (0-150) Cholesterol Level 93 mg/dL (0-200) LDL Cholesterol, Calculated 54 mg/dL (0-100) VLDL Cholesterol, Calculated 14 mg/dL (0-40) Non-HDL Cholesterol Calculated 68 mg/dL (0-129) HDL Cholesterol 25 mg/dL (40-60) Cholesterol/HDL Ratio 3.7 Thyroid Stimulating Hormone (TSH) 3.349 uIU/mL (0.358-3.74) Test 01/26/17 04:59 01/26/17 06:21 01/26/17 08:11 01/26/17 10:40 Glucose (Fingerstick) 74 mg/dL (70-99) 132 mg/dL (70-99) 107 mg/dL (70-99) D-Dimer (Aleta) 4.59 ug/mlFEU (0.00-0.50) Troponin I Quantitative < 0.017 ng/mL (0.000-0.055) Test 01/26/17 11:42 Glucose (Fingerstick) 191 mg/dL (70-99) Laboratory Tests Test 01/25/17 16:38 01/25/17 20:54 01/26/17 03:40 01/26/17 04:40 Glucose (Fingerstick) 76 mg/dL (70-99) 131 mg/dL (70-99) 43 mg/dL (70-99) Sodium Level 145 mmol/L (136-145) Potassium Level 3.5 mmol/L (3.5-5.1) Chloride Level 109 mmol/L (98-107) Carbon Dioxide Level 28 mmol/L (21-32) Anion Gap 8 (6-14) Blood Urea Nitrogen 36 mg/dL (8-26) Creatinine 1.5 mg/dL (0.7-1.3) Estimated GFR (Cockcroft-Gault) 46.3 Glucose Level 37 mg/dL (70-99) Calcium Level 8.1 mg/dL (8.5-10.1) Triglycerides Level 68 mg/dL (0-150) Cholesterol Level 93 mg/dL (0-200) LDL Cholesterol, Calculated 54 mg/dL (0-100) VLDL Cholesterol, Calculated 14 mg/dL (0-40) Non-HDL Cholesterol Calculated 68 mg/dL (0-129) HDL Cholesterol 25 mg/dL (40-60) Cholesterol/HDL Ratio 3.7 Thyroid Stimulating Hormone (TSH) 3.349 uIU/mL (0.358-3.74) Test 01/26/17 04:59 01/26/17 06:21 01/26/17 08:11 01/26/17 10:40 Glucose (Fingerstick) 74 mg/dL (70-99) 132 mg/dL (70-99) 107 mg/dL (70-99) D-Dimer (Aleta) 4.59 ug/mlFEU (0.00-0.50) Troponin I Quantitative < 0.017 ng/mL (0.000-0.055) Test 01/26/17 11:42 Glucose (Fingerstick) 191 mg/dL (70-99) Medications Current Medications Furosemide (Lasix) 40 mg [id number] IVP Last administered on 01/26/17 14:10; Start 01/25/17 at 14:00 Furosemide (Lasix) 40 mg 1X ONCE IVP Last administered on 01/25/17 12:02; Start 01/25/17 at 11:45; Stop 01/25/17 at 11:46; Status DC Glucose (Insta-Glucose) 15 gm STK-MED ONCE .ROUTE ; Start 01/25/17 at 11:44; Stop 01/25/17 at 11:45; Status DC Insulin Detemir (Levemir) 60 units BID SQ ; Start 01/25/17 at 21:00; Stop at 05:31; Status DC Dextrose (Dextrose 50%-Water Syringe) 12.5 gm PRN Q15MIN PRN IV SEE COMMENTS; Start 01/25/17 at 11:45; Stop 01/26/17 at 09:44; Status DC Glucose (Insta-Glucose) 15 gm PRN Q15MIN PRN PO LOW BLOOD SUGAR; Start 01/25/17 at 11:45 Insulin Aspart (NovoLOG) 25 units PRN TID PRN SQ IF FSBG IS >150 AC; Start 01/25 at 16:30; Stop 01/26/17 at 05:31; Status DC Enoxaparin Sodium (Lovenox 40mg Syringe) 40 mg Q24H SQ Last administered on 01/25 16:42; Start 01/25/17 at 11:45; Stop 01/26/17 at 11:18; Status DC Aspirin (Ecotrin) 81 mg DAILYWBKFT PO Last administered on 01/26/17 09:52; Start 01/25/17 at 15:00 Aspirin (Ecotrin) 81 mg DAILY PO ; Start 01/26/17 at 09:00; Status UNV Atorvastatin Calcium (Lipitor) 40 mg QHS PO Last administered on 01/25/17 22:07 ; Start 01/25/17 at 21:00 Fenofibrate (Lofibra) 134 mg DAILY PO Last administered on 01/26/17 09:50; Start 01/26/17 at 09:00 Losartan Potassium (Cozaar) 100 mg DAILY PO Last administered on 01/26/17 10:47 ; Start 01/26/17 at 09:00 Metformin HCl (Glucophage Xr) 500 mg DAILYWBKFT PO ; Start 01/26/17 at 08:00; Stop 01/26/17 at 08:00; Status DC Metoprolol Succinate (Toprol Xl) 200 mg DAILY PO Last administered on 01/26/17 09:52; Start 01/26/17 at 09:00 Fish Oil (Fish Oil) 1,000 mg DAILY PO Last administered on 01/26/17 09:50; Start 01/26/17 at 09:00 Potassium Chloride (Klor-Con) 20 meq DAILYWBKFT PO Last administered on 09:50; Start 01/26/17 at 08:00 Dextrose (Dextrose 50%-Water Syringe) 12.5 gm PRN Q15MIN PRN IV SEE COMMENTS; Start 01/25/17 at 20:15 Hydrochlorothiazide (Microzide) 12.5 mg DAILY PO ; Start 01/26/17 at 09:00; Stop 01/26/17 at 09:35; Status DC Glucose (Insta-Glucose) 15 gm STK-MED ONCE .ROUTE ; Start 01/25/17 at 11:30; Stop 01/25/17 at 20:08; Status DC Albuterol Sulfate (Ventolin Neb Soln) 2.5 mg RTQID NEB Last administered on 01/26 12:28; Start 01/26/17 at 12:00 Iohexol (Omnipaque 300 Mg/ml) 60 ml 1X ONCE IV Last administered on 01/26/17 10:18; Start 01/26/17 at 09:45; Stop 01/26/17 at 09:46; Status DC Enoxaparin Sodium (Lovenox 40mg Syringe) 40 mg Q24H SQ Last administered on 01/26 14:09; Start 01/26/17 at 12:00 Active Scripts Active Amoxicillin 500 Mg Capsule 500 Mg PO TID [place] 5-325 Tablet (Acetaminophen/Hydrocodone Bitart) 1 Each Tablet 1 Tab PO PRN Q6HRS PRN Reported Klor-Con M20 (Potassium Chloride) 20 Meq Tab.er.prt 1 Tab PO DAILY Losartan-Hctz 100-12.5 Mg Tab (Losartan/Hydrochlorothiazide) 1 Each Tablet 1 Tab PO DAILY Metoprolol Succinate ( Xl ) (Metoprolol Succinate) 200 Mg Tab.er.24h 1 Tab PO DAILY Metformin Hcl Er (Metformin Hcl) 750 Mg Tab.er.24h 750 Mg PO DAILYWBKFT Fenofibrate (Fenofibrate Nanocrystallized) 145 Mg Tablet 1 Tab PO DAILY Atorvastatin Calcium 40 Mg Tablet 1 Tab PO QHS Potassium Chloride 20 Meq Tablet.er 20 Meq PO DAILY Aspir 81 (Aspirin) 81 Mg Tablet.dr 1 Tab PO DAILY Fish Oil 1,000 Mg Softgel ([place]-3 Fatty Acids/Fish Oil) 1 Each Capsule 1 Each PO DAILY Vitals/I & O Vital Sign - Last 24 Hours 01/25/17 01/25/17 01/25/17 01/25/17 14:54 17:41 19:41 20:00 Temp 98.5 98.9 98.8 98.5 98.9 98.8 Pulse 84 82 91 Resp 22 24 22 B/P (MAP) 109/71 (84) 136/92 (107) 114/67 (83) Pulse Ox 88 94 93 O2 Delivery Room Air Room Air Room Air O2 Flow Rate 2.0 01/25/17 01/26/17 01/26/17 01/26/17 22:08 03:16 07:00 08:00 Temp 98.2 98.9 97.8 98.2 98.9 97.8 Pulse 87 78 85 Resp 20 20 22 B/P (MAP) 113/75 (88) 112/69 (83) 130/73 (92) Pulse Ox 92 90 94 O2 Delivery Nasal Cannula Room Air Nasal Cannula O2 Flow Rate 2.0 2.0 01/26/17 01/26/17 01/26/17 01/26/17 09:52 10:47 11:00 12:28 Temp 98.6 98.6 Pulse 91 91 92 Resp 20 B/P (MAP) 130/73 173/77 122/83 (96) Pulse Ox 90 92 O2 Delivery Room Air Room Air Intake and Output 01/25/17 01/25/17 01/26/17 15:00 23:00 07:00 Intake Total 180 ml 1120 ml Output Total 500 ml 1000 ml 400 ml Balance -320 ml 120 ml -400 ml LU RODRIGUEZ MD Jan 26, 2017 14:33
[2017-01-26 15:00] VITALS: BP 136/74
[2017-01-26 18:28] VITALS: BP 110/62
[2017-01-26] MEDS ORDERED: INSULIN DETEMIR 300 UNITS/3 ML INSULN.PEN. SQ SCH (21:00)
[2017-01-26] MEDS: ATORVASTATIN CALCIUM 40 MG TABLET. PO SCH (21:19)
[2017-01-26 23:00] VITALS: BP 116/71
[2017-01-27 03:00] VITALS: BP 119/63
[2017-01-27 05:02] LABS: CALCIUM 8.4 mg/dL (8.5-10.1); CREATININE 1.6 mg/dL (0.7-1.3); GFR 42.9; MAGNESIUM 2.2 mg/dL (1.8-2.4); POTASSIUM 3.8 mmol/L (3.5-5.1)
[2017-01-27 07:00] VITALS: BP 149/90
[2017-01-27] MEDS: ALBUTEROL SULFATE 2.5 MG/3 ML NEBU. NEB SCH (08:33)
[2017-01-27] MEDS: FUROSEMIDE 40 MG/4 ML VIAL. IVP SCH ×2 (08:37→14:43)
[2017-01-27] MEDS: OMEGA-3 FATTY ACIDS/FISH OIL 1,000 MG CAPSULE. PO SCH (08:38)
[2017-01-27] MEDS: METOPROLOL SUCC 24HR ER 100 MG TAB.ER.24H. PO SCH (08:38)
[2017-01-27] MEDS: FENOFIBRATE,MICRONIZED 134 MG CAPSULE PO SCH (08:39)
[2017-01-27] MEDS: POTASSIUM CHLORIDE 20 MEQ TABLET.ER. PO SCH (08:39)
[2017-01-27] MEDS: LOSARTAN POTASSIUM 50 MG TABLET. PO SCH (08:40)
[2017-01-27] MEDS: ASPIRIN ENTERIC COATED 81 MG TABLET.DR. PO SCH (08:40)
--- NOTE | 2017-01-27 09:19 | PDOC ---
Provider Note Provider Note no dvt/pe per scans, still edema in legs- cont iv lasix, consider mpi as high risk for cad- renal fx same, still glucose ok off insulin- d/w also VANDANA FROST MD Jan 27, 2017 09:19
--- NOTE | 2017-01-27 10:04 | PDOC ---
SABINO CLEMENTE GENERAL PARTNER 01/27/17 1004: CARDIO Progress Notes Date and Time Date of Service 01/27/17 Time of Evaluation 0951 Subjective Subjective: No Chest Pain, Other (felling much better, less SOA, LE edema improved ) Vitals Vitals Vital Signs Date Time Temp Pulse Resp B/P (MAP) Pulse Ox O2 Delivery O2 Flow Rate FiO2 01/27/17 08:40 78 149/90 01/27/17 08:33 94 Room Air 01/27/17 07:00 97.5 22 97.5 01/26/17 08:00 2.0 Weight Weight [ ] Input and Output Intake and Output Intake and Output 01/27/17 06:59 Intake Total 400 ml Output Total 1000 ml Balance -600 ml Intake Oral 400 ml Output Urine Total 1000 ml # Voids 4 Laboratory Labs Laboratory Tests Test 01/26/17 10:40 01/26/17 11:42 01/26/17 17:26 01/26/17 21:04 D-Dimer (Aleta) 4.59 ug/mlFEU (0.00-0.50) Troponin I Quantitative < 0.017 ng/mL (0.000-0.055) Glucose (Fingerstick) 191 mg/dL (70-99) 224 mg/dL (70-99) 197 mg/dL (70-99) Test 01/27/17 03:32 01/27/17 04:06 01/27/17 08:12 Glucose (Fingerstick) 153 mg/dL (70-99) 130 mg/dL (70-99) Sodium Level 143 mmol/L (136-145) Potassium Level 3.8 mmol/L (3.5-5.1) Chloride Level 106 mmol/L (98-107) Carbon Dioxide Level 27 mmol/L (21-32) Anion Gap 10 (6-14) Blood Urea Nitrogen 38 mg/dL (8-26) Creatinine 1.6 mg/dL (0.7-1.3) Estimated GFR (Cockcroft-Gault) 42.9 Glucose Level 145 mg/dL (70-99) Calcium Level 8.4 mg/dL (8.5-10.1) Magnesium Level 2.2 mg/dL (1.8-2.4) Physical Exam HEENT: Neck Supple W Full Motion Chest: Symmetric LUNGS: Clear to Auscultation Heart: S1S2, RRR Abdomen: Soft N/T, Other (obese ) Extremities: 2+ Dorsalis Pedis, Other (1+ bilateral LE pitting edema ) Neurology: alert, oriented, follow commands Assessment Assessment 1. Acute on chronic diastolic heart failure. 2. Hypertension 3. Hyperlipidemia 4. CAD 5. CLINT 6. Diabetes Recommendations Continue diuresis with monitoring of labs. Discussed further ischemic workup given history/risk factors and dyspnea; possibly as an outpatient. Patient would like to proceed with as an inpatient; will schedule MPI 2-day protocol with resting portion today as patient had breakfast. Supportive care ARELI HENSLEY MD 01/27/17 1950: CARDIO Progress Notes Plan Plan Patient seen and examined. Agree with above nurse practitioner note with the following comments No acute events overnight. Diuresis is limited. On examination he has persistent 2+ pitting edema. Rest portion of the myocardial perfusion study has been performed. We will add metolazone to his regimen to help improve his diuresis. We'll follow along. Anticipate another 24 hours in the hospital. SABINO CLEMENTE APRN Jan 27, 2017 10:04 ARELI HENSLEY MD Jan 27, 2017 19:50
[2017-01-27 11:00] VITALS: BP 122/76
[2017-01-27 15:00] VITALS: BP 117/65
[2017-01-27] MEDS: INSULIN DETEMIR 300 UNITS/3 ML INSULN.PEN. SQ SCH (17:21)
[2017-01-27 19:55] VITALS: BP 134/78
[2017-01-27] MEDS: ATORVASTATIN CALCIUM 40 MG TABLET. PO SCH (20:38)
[2017-01-27] MEDS: TEMAZEPAM 15 MG CAPSULE PO PRN (20:38)
[2017-01-27 22:29] VITALS: BP 118/64
[2017-01-28 03:04] VITALS: BP 123/71
[2017-01-28 07:00] VITALS: BP 125/70
[2017-01-28] MEDS ORDERED: REGADENOSON 0.4 MG/5 ML DISP.SYRIN. IV ONE (09:00)
--- NOTE | 2017-01-28 09:07 | PDOC ---
SABINO CLEMENTE APRN 01/28/17 0907: CARDIO Progress Notes Date and Time Date of Service 01/28/17 Time of Evaluation 0900 Subjective Subjective: No Chest Pain, No shortness of breath, Other (continue to improve ) Vitals Vitals Vital Signs Date Time Temp Pulse Resp B/P (MAP) Pulse Ox O2 Delivery O2 Flow Rate FiO2 01/28/17 08:18 Room Air 2.0 01/28/17 07:00 97.4 79 22 125/70 (88) 93 97.4 Weight Weight [ ] Input and Output Intake and Output Intake and Output 01/28/17 07:00 Intake Total 2280 ml Balance 2280 ml Intake Oral 2280 ml # Voids 2 Laboratory Labs Laboratory Tests Test 01/27/17 11:52 01/27/17 16:44 01/27/17 20:30 01/28/17 07:48 Glucose (Fingerstick) 189 mg/dL (70-99) 260 mg/dL (70-99) 276 mg/dL (70-99) 177 mg/dL (70-99) Physical Exam HEENT: Neck Supple W Full Motion Chest: Symmetric LUNGS: Clear to Auscultation Heart: S1S2, RRR Abdomen: Soft N/T, Other (obese ) Extremities: 2+ Dorsalis Pedis, Other (1-2+ bilateral LE pitting edema ) Neurology: alert, oriented, follow commands Assessment Assessment 1. Acute on chronic diastolic heart failure. 2. Hypertension 3. Hyperlipidemia 4. CAD Recommendations MPI pending Pt reporting good UOP; none documented. Accurate I and O- d/w RN Continue diuresis with monitoring of renal function. BMP in am Anticipate discharge in am. ARELI HENSLEY MD 01/28/17 1145: CARDIO Progress Notes Plan Plan Patient seen and examined. Agree with above nurse practitioner note. Today the patient seems more sleepy. He is irritated. He still has 2-3+ pitting edema the bilateral lower 70s and is significantly improved from admission but not that much improved from yesterday. Standing weights of decreased from 310 pounds to 307 pounds. Will continue intravenous diuretics today with monitoring of renal function. Anticipate transitioning to oral diuretics tomorrow and discharge tomorrow if patient is stable. Awaiting final results of myocardial perfusion study today. Will follow along. SABINO CLEMENTE APRN Jan 28, 2017 09:07 ARELI HENSLEY MD Jan 28, 2017 11:45
[2017-01-28 11:00] VITALS: BP 119/65
--- NOTE | 2017-01-28 11:52 | RAD ---
APPROVED REPORT Test Type: Pharmacological Stress Nurse/Tech: Rosie Purdy R.N. Test Indications: dyspnea Cardiac History: chf, sleep apnea, htn Medications: see emr Medical History: see emr Resting ECG: SR with inverted Ts Resting Heart Rate: 77 bpm Resting Blood Pressure: 107/49mmHg Pretest Chest Pain: No chest pain Nurse/Tech Notes lungs diminished but no wheezes, regular HR, strong pulse Consent: The procedure was explained to the patient in lay terms. Informed consent was witnessed. Ruel eout was entered into [employer]. History and Stress Test performed by Rosie Purdy R.N. Pharm. Details Pharmacologic stress testing was performed using 0.4mg per 5ml of regadenoson given intravenously ove r 7-10 seconds. Stress Symptoms No chest pain or symptoms. POST EXERCISE Reason for Termination: Infusion complete Target HR: No Max HR: 88 bpm Max Blood Pressure: 120/67mmHg Chest Pain: No. Arrhythmia: No. ST Change: No. INTERPRETATION Stress EKG Conclusion: No evidence of stress induced EKG changes with vasodilator testing. Imaging Protocol IMAGE PROTOCOL: Rest Tc-99m/stress Tc-99m 2 days Rest: Stress: Viability: Radiopharm.Tc99m PbyuztkxgMf40f Sestamibi Nwfe06yDa 34mCi Duration 15min. 15min. Img Date 01/27/2017 01/28/2017 Inj-Img Qrjn33exq. 60min. Rest Admin Site:IV - Left ForearmAdministrator:MALA Harding, ARRT (R)(N) Stress Admin Site: IV - Left ForearmAdministrator: Catherine Randle, RT (R)(N) STRESS DATA End Diast. Vol.77.0mlAv. Heart Rate84.0bpm End Syst. Vol.26.0mlCO Index BSA0.0L/min Myocardial Regv564.0gEject. Pdyvumht78.0% Stress Rates Pk. Fill Rate3.71EDV/secLVtime Pk. Fill 132.91msec Pk. Empty Rate4.41ESV/secLVtime Pk. Icrlg181.91msec 07/26 Pk. Fill2.07EDV/sec Stress Scores Regional WT1.00Summed WT10.00 Regional WM0.00Summed WM2.00 The rest and stress images show normal perfusion, normal contraction and thickening. LV Perf. Quant 17 Seg. SSS0.00 17 Seg. SRS0.00 17 Seg. SDS0.00 Stress Defect Extent (% LAD)5.60Rest Defect Extent (% LAD)0.00Rev. Defect Extent (% LAD)5.60 Stress Defect Extent (% LCX) 22.50Rest Defect Extent (% LCX)0.00Rev. Defect Extent (% LCX)13.80 Stress Defect Extent (% RCA)0.00Rest Defect Extent (% RCA)0.00Rev. Defect Extent (% RCA)0.00 Stress Defect Extent (% DUNG)5.90Rest Defect Extent (% DUNG)0.00Rev. Defect Extent (% DUNG)4.30 Other Information Quality:Average Risk Assessment: Low Risk Conclusion 1. No evidence of EKG changes with stress testing. 2. Normal perfusion at stress/rest. 3. Low risk study. 4. EF > 60%.
[2017-01-28] MEDS: POTASSIUM CHLORIDE 20 MEQ TABLET.ER. PO SCH (11:55)
[2017-01-28] MEDS: OMEGA-3 FATTY ACIDS/FISH OIL 1,000 MG CAPSULE. PO SCH (11:55)
[2017-01-28] MEDS: FENOFIBRATE,MICRONIZED 134 MG CAPSULE PO SCH (11:55)
[2017-01-28] MEDS: ASPIRIN ENTERIC COATED 81 MG TABLET.DR. PO SCH (11:55)
[2017-01-28] MEDS: LOSARTAN POTASSIUM 50 MG TABLET. PO SCH (11:56)
[2017-01-28] MEDS: METOPROLOL SUCC 24HR ER 100 MG TAB.ER.24H. PO SCH (11:59)
[2017-01-28] MEDS: INSULIN DETEMIR 300 UNITS/3 ML INSULN.PEN. SQ SCH (12:05)
[2017-01-28] MEDS: FUROSEMIDE 40 MG/4 ML VIAL. IVP SCH ×2 (12:07→13:52)
[2017-01-28] MEDS ORDERED: DEXTROSE 50% 25 GM / 50ML DISP.SYRIN. IV PRN (13:00)
[2017-01-28 13:36] LABS: CALCIUM 8.3 mg/dL (8.5-10.1); CREATININE 1.6 mg/dL (0.7-1.3); GFR 42.9; POTASSIUM 4.1 mmol/L (3.5-5.1)
--- NOTE | 2017-01-28 13:42 | PDOC ---
SUBJECTIVE Subjective He feels better but stated that he did not sleep good he is very sleepy OBJECTIVE Vital Signs Vital Signs Date Time Temp Pulse Resp B/P (MAP) Pulse Ox O2 Delivery O2 Flow Rate FiO2 01/28/17 11:59 79 119/65 01/28/17 11:56 22 119/65 01/28/17 11:00 97.6 22 22 119/65 (83) 94 Room Air 97.6 01/28/17 08:18 Room Air 2.0 01/28/17 07:00 97.4 79 22 125/70 (88) 93 Room Air 97.4 01/28/17 03:04 97.9 78 16 123/71 (88) 90 Nasal Cannula 2.0 97.9 01/27/17 22:29 98.0 83 22 118/64 (82) 91 Nasal Cannula 2.0 98.0 01/27/17 19:55 97.9 85 20 134/78 (96) 90 Room Air 97.9 01/27/17 19:46 Room Air 2.0 01/27/17 15:00 97.6 89 22 117/65 (82) 91 Room Air 97.6 I & O Intake and Output 01/28/17 07:00 Intake Total 2280 ml Balance 2280 ml Intake Oral 2280 ml # Voids 2 PHYSICAL EXAM Physical Exam Lungs with basilar rales Heart is regular Abdomen is soft obese nontender Extremities with 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 Acute on chronic diastolic heart failure. 2. Hypertension 3. Hyperlipidemia 4. CAD 5- 6 mm right middle lobe lung nodule incidental finding on CT chest, need repeat CT in 6-12 months 6-diabetes mellitus type 2, will restart his pre-meal insulin and sliding scale Problems: COMMENT Lab Laboratory Tests Test 01/27/17 16:44 01/27/17 20:30 01/28/17 07:48 01/28/17 10:59 Glucose (Fingerstick) 260 mg/dL (70-99) 276 mg/dL (70-99) 177 mg/dL (70-99) 232 mg/dL (70-99) CHARLOTTE DODD MD Jan 28, 2017 13:42
[2017-01-28] MEDS: INSULIN ASPART 300 UNITS/3 ML INSULN.PEN SQ SCH ×4 (13:57→17:23)
[2017-01-28 15:00] VITALS: BP 117/62
[2017-01-28 19:00] VITALS: BP 11/66
[2017-01-28] MEDS: TEMAZEPAM 15 MG CAPSULE PO PRN (20:33)
[2017-01-28] MEDS: ATORVASTATIN CALCIUM 40 MG TABLET. PO SCH (20:33)
[2017-01-28 23:00] VITALS: BP 104/57
[2017-01-29 03:00] VITALS: BP 100/61
[2017-01-29 07:00] VITALS: BP 108/60
[2017-01-29 07:00] LABS: HEMATOCRIT 34.7 % (39.0-53.0); HEMOGLOBIN 11.3 g/dL (13.0-17.5); RED BLOOD COUNT 3.85 x10^6/uL (4.30-5.70); RED CELL DISTRIBUTION WIDTH 16.8 % (11.5-14.5); WHITE BLOOD COUNT 8.7 x10^3/uL (4.0-11.0)
[2017-01-29 07:02] LABS: CALCIUM 8.7 mg/dL (8.5-10.1); CREATININE 1.5 mg/dL (0.7-1.3); GFR 46.3; POTASSIUM 3.8 mmol/L (3.5-5.1)
[2017-01-29] MEDS: INSULIN ASPART 300 UNITS/3 ML INSULN.PEN SQ SCH ×2 (08:00→08:46)
[2017-01-29] MEDS: OMEGA-3 FATTY ACIDS/FISH OIL 1,000 MG CAPSULE. PO SCH (08:43)
[2017-01-29] MEDS: METOPROLOL SUCC 24HR ER 100 MG TAB.ER.24H. PO SCH (08:43)
[2017-01-29] MEDS: ASPIRIN ENTERIC COATED 81 MG TABLET.DR. PO SCH (08:43)
[2017-01-29] MEDS: LOSARTAN POTASSIUM 50 MG TABLET. PO SCH (08:44)
[2017-01-29] MEDS: FENOFIBRATE,MICRONIZED 134 MG CAPSULE PO SCH (08:44)
[2017-01-29] MEDS: POTASSIUM CHLORIDE 20 MEQ TABLET.ER. PO SCH (08:44)
[2017-01-29] MEDS: FUROSEMIDE 40 MG/4 ML VIAL. IVP SCH (08:45)
[2017-01-29] MEDS: INSULIN DETEMIR 300 UNITS/3 ML INSULN.PEN. SQ SCH (08:46)
[2017-01-29 10:53] VITALS: BP 102/69
--- NOTE | 2017-01-29 11:29 | PDOC ---
Provider Note Provider Note Ok to DC today. Plan for Lasix 40mg bid f/u with Dr. Langley on Monday. MPI normal. Continue toprol, losartan, statin/ASA thx AREIL HENSLEY MD Jan 29, 2017 11:29
[2017-01-29] MEDS ORDERED: FURO-68 PO (11:32)
[2017-01-29] MEDS ORDERED: INSU100I27 SQ (11:32)
[2017-01-29] MEDS ORDERED: INSU100I17 SQ (11:32)
--- NOTE | 2017-01-29 11:36 | PDOC ---
SUBJECTIVE Subjective feels better, anxious to go home despite in > OUT ADVICED TO RESTRICT FLUID INTAKE OBJECTIVE Vital Signs Vital Signs Date Time Temp Pulse Resp B/P (MAP) Pulse Ox O2 Delivery O2 Flow Rate FiO2 01/29/17 10:53 98.3 81 22 102/69 (80) 92 Room Air 98.3 01/29/17 08:44 76 108/60 01/29/17 08:43 76 108/60 01/29/17 08:00 Room Air 2.0 01/29/17 07:00 97.5 76 22 108/60 (76) 92 Room Air 97.5 01/29/17 03:00 98.2 76 18 100/61 (74) 91 Room Air 98.2 01/28/17 23:00 98.1 66 18 104/57 (73) 91 Room Air 98.1 01/28/17 20:00 Room Air 2.0 01/28/17 19:00 98.4 83 19 11/66 (48) 92 Room Air 98.4 01/28/17 15:00 97.7 81 22 117/62 (80) 91 Room Air 97.7 01/28/17 11:59 79 119/65 01/28/17 11:56 22 119/65 I & O Intake and Output 01/29/17 07:00 Intake Total 1820 ml Output Total 1250 ml Balance 570 ml Intake Oral 1820 ml Output Urine Total 1250 ml # Voids 2 PHYSICAL EXAM Physical Exam decrease swelling in LE lungs less rales heart RRR abd soft ext still with edema ASSESSMENT/PLAN Assessment/Plan 1. Acute on chronic diastolic heart failure. 2. Hypertension 3. Hyperlipidemia 4. CAD 5- 6 mm right middle lobe lung nodule incidental finding on CT chest, need repeat CT in 6-12 months 6-diabetes mellitus type 2, better home today per c.v Problems: COMMENT Lab Laboratory Tests Test 01/28/17 13:10 01/28/17 16:58 01/28/17 20:30 01/29/17 06:22 Sodium Level 141 mmol/L (136-145) 140 mmol/L (136-145) Potassium Level 4.1 mmol/L (3.5-5.1) 3.8 mmol/L (3.5-5.1) Chloride Level 104 mmol/L (98-107) 103 mmol/L (98-107) Carbon Dioxide Level 26 mmol/L (21-32) 29 mmol/L (21-32) Anion Gap 11 (6-14) 8 (6-14) Blood Urea Nitrogen 43 mg/dL (8-26) 37 mg/dL (8-26) Creatinine 1.6 mg/dL (0.7-1.3) 1.5 mg/dL (0.7-1.3) Estimated GFR (Cockcroft-Gault) 42.9 46.3 Glucose Level 318 mg/dL (70-99) 117 mg/dL (70-99) Calcium Level 8.3 mg/dL (8.5-10.1) 8.7 mg/dL (8.5-10.1) Glucose (Fingerstick) 226 mg/dL (70-99) 267 mg/dL (70-99) White Blood Count 8.7 x10^3/uL (4.0-11.0) Red Blood Count 3.85 x10^6/uL (4.30-5.70) Hemoglobin 11.3 g/dL (13.0-17.5) Hematocrit 34.7 % (39.0-53.0) Mean Corpuscular Volume 90 fL (79-100) Mean Corpuscular Hemoglobin 29 pg (25-35) Mean Corpuscular Hemoglobin Concent 33 g/dL (31-37) Red Cell Distribution Width 16.8 % (11.5-14.5) Platelet Count 346 x10^3/uL (140-400) Test 01/29/17 07:57 Glucose (Fingerstick) 124 mg/dL (70-99) CHARLOTTE DODD MD Jan 29, 2017 11:36
--- NOTE | 2017-01-29 11:40 | PDOC3 ---
Discharge Summary* Date of Admission: Jan 25, 2017 Date of Discharge: Jan 29, 2017 Final Diagnosis 1. Acute on chronic diastolic heart failure. 2. Hypertension 3. Hyperlipidemia 4. CAD 5- 6 mm right middle lobe lung nodule incidental finding on CT chest, need repeat CT in 6-12 months 6- diabetes mellitus type 2, on levemir and premeal novolog, stop metformin CONSULTS cardiology Procedures echocardiogram, MPI stress test neg, CXR, LE venous doppler, CT chest no PE incidental lung nodule on R need f/u Brief Hospital Course Mr. Burk is a 71 old [sex] who presented with [ ] Disposition/Orders: D/C to Home CONDITION AT DISCHARGE: Improved Diet: Cardiac, Consistent Carbohydrate Scheduled Amoxicillin (Amoxicillin), 500 MG PO TID Aspirin (Aspir 81), 1 TAB PO DAILY, (Reported) Atorvastatin Calcium (Atorvastatin Calcium), 1 TAB PO QHS, (Reported) Fenofibrate Nanocrystallized (Fenofibrate), 1 TAB PO DAILY, (Reported) Losartan/Hydrochlorothiazide (Losartan-Hctz 100-12.5 Mg Tab), 1 TAB PO DAILY, ( Reported) Metformin Hcl (Metformin Hcl Er), 750 MG PO DAILYWBKFT, (Reported) Metoprolol Succinate (Metoprolol Succinate ( Xl )), 1 TAB PO DAILY, (Reported) [place]ter-3 Fatty Acids/Fish Oil (Fish Oil 1,000 Mg Softgel), 1 EACH PO DAILY, ( Reported) Potassium Chloride (Potassium Chloride), 20 MEQ PO DAILY, (Reported) Potassium Chloride (Klor-Con M20), 1 TAB PO DAILY, (Reported) Scheduled PRN Hydrocodone/Apap 5-325 (Sutton 5-325 Tablet), 1 TAB PO PRN Q6HRS PRN for PAIN FOLLOW UP APPOINTMENT: Dr Long on Monday Dr. Pastrana 1-2 weeks restrict po fluid to 1200 CC daily Time Spent Total time spent with patient 30 minutes for coordination of care, counseling, and education. CHARLOTTE DODD MD Jan 29, 2017 11:40
== END 2017-01-29 15:20 | disposition home or self-care (01) | DRG 291 ==
LOC: 2 SOUTH 10:54
PROVIDERS: ADMIT Family Medicine; ATTEND Family Medicine
DX: I50.33 Acute on chronic diastolic (congestive) heart failure (principal); J96.00 Acute respiratory failure, unspecified whether with hypoxia or hypercapnia; I13.0 Hypertensive heart and chronic kidney disease with heart failure and stage 1 through stage 4 chronic kidney disease, or unspecified chronic kidney disease; E11.22 Type 2 diabetes mellitus with diabetic chronic kidney disease; E66.01 Morbid (severe) obesity due to excess calories; E78.5 Hyperlipidemia, unspecified; Z96.653 Presence of artificial knee joint, bilateral; M19.90 Unspecified osteoarthritis, unspecified site; R91.1 Solitary pulmonary nodule; G47.33 Obstructive sleep apnea (adult) (pediatric); I25.10 Atherosclerotic heart disease of native coronary artery without angina pectoris; K21.9 Gastro-esophageal reflux disease without esophagitis; N18.9 Chronic kidney disease, unspecified; Z82.49 Family history of ischemic heart disease and other diseases of the circulatory system; Z68.39 Body mass index [BMI] 39.0-39.9, adult; Z79.899 Other long term (current) drug therapy; Z71.89 Other specified counseling
CPT/HCPCS: 36415; 71020; 71275; 78452; 80048; 80053; 80061; 81001; 82962; 83735; 83880; 84443; 84484; 85027; 85379; 93005; 93017; 93306; 93970; 94640; 94760; 96374; 96375; 96376; A9500; J1650; J1815; J1940; J2785; Q9967

== ENCOUNTER → 2017-02-23 | Outpatient (CLI) | payer BC ==
[2017-01-29 10:53] VITALS: BP 102/69
[~2017-02-23] MED LIST changes: +ASPI-482 PO; +ATOR40TA59 PO; +FENO145T2 PO; +FURO-68 PO; +INSU100I17 SQ; +INSU100I27 SQ; +LOSA1TAB18 PO; +METF750T2 PO; +METO200T3 PO; +OMEG1CAP27 PO; +POTA20TA4 PO; +POTA20TA82 PO
--- NOTE | 2017-02-23 11:12 | CARD ---
APPROVED REPORT EXAM: LIMITED Two-dimensional and M-mode echocardiogram with Doppler and color Doppler. Other Information Quality : Technically Limited Rhythm : NSRTechnically limited study due to body habitus. INDICATION Hypertension/HCVD Pre-Op Moderate circumferential pericardial effusion on echo done on 01/25/17 2D DIMENSIONS RVDd3.0 (2.9-3.5cm)Left Atrium(2D)3.9 (1.6-4.0cm) IVSd1.2 (0.7-1.1cm)Aortic Root(2D)2.9 (2.0-3.7cm) LVDd4.9 (3.9-5.9cm)LVOT Diameter2.4 (1.8-2.4cm) PWd1.2 (0.7-1.1cm)LVDs3.5 (2.5-4.0cm) FS (%) 27.4 %SV59.0 ml LVEF(%)53.1 (>50%) LEFT VENTRICLE The left ventricle is normal size. There is borderline concentric left ventricular hypertrophy. Left ventricle systolic function is normal. The Ejection Fraction is 50-55%. There is grossly normal LV se gmental wall motion. RIGHT VENTRICLE The right ventricle is normal size. The right ventricular systolic function is normal. ATRIA The left atrium size is normal. The right atrium size is normal. AORTIC VALVE The aortic valve is calcified but opens well. Doppler and Color Flow revealed mild aortic regurgitati on. MITRAL VALVE The mitral valve is normal in structure and function. TRICUSPID VALVE The tricuspid valve is not well visualized. GREAT VESSELS The aortic root is normal in size. The IVC is dilated and collapses <50% with inspiration. PERICARDIAL EFFUSION There is no pleural effusion. There is a small posterior pericardial effusion. Critical Notification Critical Value: No <Conclusion> There is grossly normal LV segmental wall motion. There is a small posterior pericardial effusion.
== END | disposition home or self-care (01) ==
LOC: ECHO 08:35
PROVIDERS: ATTEND Internal Medicine Cardiovascular Disease
DX: Z01.818 Encounter for other preprocedural examination (principal); I31.3 Pericardial effusion (noninflammatory); I35.1 Nonrheumatic aortic (valve) insufficiency; I10 Essential (primary) hypertension
CPT/HCPCS: 93306

== ENCOUNTER → 2017-03-15 | Outpatient (CLI) | payer BC ==
[2017-03-15 09:27] LABS: BASO % 1 % (0-3); EOS % 3 % (0-3); HEMATOCRIT 43.3 % (39.0-53.0); HEMOGLOBIN 14.4 g/dL (13.0-17.5); LYMPH # 1.2 x10^3/uL (1.0-4.8); LYMPH % 20 % (24-48); MEAN CORPUSCULAR HEMOGLOBIN 29 pg (25-35); MEAN CORPUSCULAR HGB CONC 33 g/dL (31-37); MEAN CORPUSCULAR VOLUME 86 fL (79-100); MONO % 12 % (0-9); NEUT % 64 % (31-73); PLATELET COUNT 351 x10^3/uL (140-400); RED BLOOD COUNT 5.04 x10^6/uL (4.30-5.70); RED CELL DISTRIBUTION WIDTH 17.9 % (11.5-14.5); WHITE BLOOD COUNT 6.1 x10^3/uL (4.0-11.0)
[2017-03-15 10:17] LABS: ALBUMIN 3.7 g/dL (3.4-5.0); CALCIUM 9.5 mg/dL (8.5-10.1); CREATININE 1.7 mg/dL (0.7-1.3); PHOSPHORUS 4.6 mg/dL (2.6-4.7); POTASSIUM 4.4 mmol/L (3.5-5.1)
[2017-03-16 04:21] LABS: PTH INTACT 39 pg/mL (15-65)
== END | disposition home or self-care (01) ==
LOC: LAB 08:53
PROVIDERS: ATTEND Internal Medicine Nephrology
DX: I12.9 Hypertensive chronic kidney disease with stage 1 through stage 4 chronic kidney disease, or unspecified chronic kidney disease (principal); N18.3 Chronic kidney disease, stage 3 (moderate); E11.22 Type 2 diabetes mellitus with diabetic chronic kidney disease; E11.21 Type 2 diabetes mellitus with diabetic nephropathy; Z68.41 Body mass index [BMI] 40.0-44.9, adult
CPT/HCPCS: 36415; 80069; 83970; 85025

== ENCOUNTER → 2017-06-20 | Outpatient (CLI) | payer BC ==
[~2017-06-20] MED LIST changes: -LOSA1TAB18 PO; +LOSA1TAB25 PO; -METO200T3 PO; +METO200T5 PO
[2017-06-20 12:02] LABS: CALCIUM 9.6 mg/dL (8.5-10.1); CREATININE 1.4 mg/dL (0.7-1.3); GFR 50.1; PHOSPHORUS 3.7 mg/dL (2.6-4.7); POTASSIUM 4.1 mmol/L (3.5-5.1)
[2017-06-20 12:05] LABS: BASO % 0 % (0-3); EOS % 2 % (0-3); HEMATOCRIT 48.4 % (39.0-53.0); HEMOGLOBIN 15.8 g/dL (13.0-17.5); LYMPH # 1.1 x10^3/uL (1.0-4.8); LYMPH % 12 % (24-48); MEAN CORPUSCULAR HEMOGLOBIN 29 pg (25-35); MEAN CORPUSCULAR HGB CONC 33 g/dL (31-37); MEAN CORPUSCULAR VOLUME 87 fL (79-100); MONO % 9 % (0-9); NEUT % 77 % (31-73); PLATELET COUNT 345 x10^3/uL (140-400); RED BLOOD COUNT 5.55 x10^6/uL (4.30-5.70); RED CELL DISTRIBUTION WIDTH 19.2 % (11.5-14.5); WHITE BLOOD COUNT 8.9 x10^3/uL (4.0-11.0)
[2017-06-21 08:24] LABS: PTH INTACT 28 pg/mL (15-65)
== END | disposition home or self-care (01) ==
LOC: LAB 11:27
PROVIDERS: ATTEND Internal Medicine Nephrology
DX: I12.9 Hypertensive chronic kidney disease with stage 1 through stage 4 chronic kidney disease, or unspecified chronic kidney disease (principal); N18.3 Chronic kidney disease, stage 3 (moderate); E11.22 Type 2 diabetes mellitus with diabetic chronic kidney disease; Z68.39 Body mass index [BMI] 39.0-39.9, adult
CPT/HCPCS: 36415; 80069; 83970; 85025

== ENCOUNTER → 2017-12-12 | Outpatient (CLI) | payer BC ==
[2017-12-12 10:26] LABS: ADD MAN DIFF? NO
[2017-12-12 10:35] LABS: BASO % 0 % (0-3); EOS % 1 % (0-3); HEMATOCRIT 46.5 % (39.0-53.0); HEMOGLOBIN 15.8 g/dL (13.0-17.5); LYMPH # 0.8 x10^3/uL (1.0-4.8); LYMPH % 14 % (24-48); MEAN CORPUSCULAR HEMOGLOBIN 32 pg (25-35); MEAN CORPUSCULAR HGB CONC 34 g/dL (31-37); MEAN CORPUSCULAR VOLUME 94 fL (79-100); MONO # 0.6 x10^3/uL (0.0-1.1); MONO % 11 % (0-9); NEUT # 4.2 x10^3uL (1.8-7.7); NEUT % 74 % (31-73); PLATELET COUNT 248 x10^3/uL (140-400); RED BLOOD COUNT 4.93 x10^6/uL (4.30-5.70); RED CELL DISTRIBUTION WIDTH 15.6 % (11.5-14.5); WHITE BLOOD COUNT 5.6 x10^3/uL (4.0-11.0)
[2017-12-12 10:50] LABS: ALBUMIN 4.1 g/dL (3.4-5.0); ANION GAP 8 (6-14); BLOOD UREA NITROGEN 30 mg/dL (8-26); CALCIUM 9.7 mg/dL (8.5-10.1); CARBON DIOXIDE 29 mmol/L (21-32); CHLORIDE 105 mmol/L (98-107); CREATININE 1.5 mg/dL (0.7-1.3); GFR 46.1; GLUCOSE 126 mg/dL (70-99); MAGNESIUM 2.3 mg/dL (1.8-2.4); PHOSPHORUS 3.6 mg/dL (2.6-4.7); SODIUM 142 mmol/L (136-145); URIC ACID 5.6 mg/dL (3.5-7.2)
[2017-12-12 19:19] LABS: CALCIUM PTH 9.8 mg/dL (8.6-10.2); CREATININE PTH 1.29 mg/dL (0.76-1.27); PHOSPHORUS PTH 3.6 mg/dL (2.5-4.5); PTH INTACT 29 pg/mL (15-65); TOTAL PROTEIN CREATININE RATIO 640 mg/g creat (0-200); UR CREATININE RD 117.9 mg/dL (Not Estab.); UR PROTEIN RD 75.5 mg/dL (Not Estab.); eGFR AFRICAN-AMER 64 (>59); eGFR NON AFRICAN-AMER 55 (>59)
== END | disposition home or self-care (01) ==
LOC: LAB 10:12
DX: I13.0 Hypertensive heart and chronic kidney disease with heart failure and stage 1 through stage 4 chronic kidney disease, or unspecified chronic kidney disease (principal); E11.21 Type 2 diabetes mellitus with diabetic nephropathy; I50.33 Acute on chronic diastolic (congestive) heart failure; N18.3 Chronic kidney disease, stage 3 (moderate); E78.5 Hyperlipidemia, unspecified; R60.0 Localized edema; Z68.34 Body mass index [BMI] 34.0-34.9, adult
CPT/HCPCS: 36415; 80069; 82570; 83735; 83970; 84156; 84550; 85025

== ENCOUNTER → 2018-03-06 | Outpatient (CLI) | payer BC, MEDICARE ==
[~2018-03-06] MED LIST changes: -FENO145T2 PO; +FENO145T30 PO; +METO200T46 PO; -METO200T5 PO
--- NOTE | 2018-03-06 10:15 | CARD ---
MR#: [id number] Date of Study: 03/06/2018 Ordering Physician: LU RODRIGUEZ, Referring Physician: LU RODRIGUEZ, Tech: Viv Man MARIN APPROVED REPORT EXAM: Two-dimensional and M-mode echocardiogram with Doppler and color Doppler. Other Information Quality : Technically Limited Technically limited study due to body habitus. INDICATION Cardiac Disease: CAD 2D DIMENSIONS RVDd2.6 (2.9-3.5cm)Left Atrium(2D)3.5 (1.6-4.0cm) IVSd1.1 (0.7-1.1cm)Aortic Root(2D)3.2 (2.0-3.7cm) LVDd3.8 (3.9-5.9cm)LVOT Diameter2.1 (1.8-2.4cm) PWd1.0 (0.7-1.1cm)LVDs3.4 (2.5-4.0cm) FS (%) 30.0 %SV14.2 ml LVEF(%)60.0 (>50%) Aortic Valve AoV Peak Marcos.124.3cm/sAoV VTI23.0cm AO Peak GR.6.2mmHgLVOT Peak Marcos.103.6cm/s AO Mean GR.4mmHgAVA (VMAX)2.83cm2 KUNAL (VTI)2.26md1ZB P 1/2 Lbgi350qr Mitral Valve MV E Qgidcmcf08.0cm/sMV DECEL QPXH587qm MV A Pdeijdiu55.1cm/sE/A Ratio1.3 Tricuspid Valve TR P. Kmpawoxm511ck/sRAP KASKLVRW77ahYq TR Peak Gr.71jvNcNFGL07pbJk Pulmonary Vein S1 Wvpgmnkg36.1cm/sD2 Hjouhpwd98.4cm/s LEFT VENTRICLE The left ventricle is normal size. There is normal left ventricular wall thickness. The left ventricu lar systolic function is normal. The Ejection Fraction is 55-60%. There is normal LV segmental wall m otion. RIGHT VENTRICLE The right ventricle is normal size. The right ventricular systolic function is normal. ATRIA The left atrium size is normal. The right atrium size is normal. The interatrial septum is intact wit h no evidence for an atrial septal defect or patent foramen ovale as noted on 2-D or Doppler imaging. AORTIC VALVE The aortic valve is not well visualized but does appear calcified. Doppler and Color Flow revealed mi ld aortic regurgitation. There is no significant aortic valvular stenosis. MITRAL VALVE The mitral valve is calcified but opens well. There is no evidence of mitral valve prolapse. There is no mitral valve stenosis. Doppler and Color Flow revealed no mitral valve regurgitation noted. TRICUSPID VALVE The tricuspid valve is normal in structure and function. Doppler and Color Flow revealed trace tricus pid regurgitation. There is mild pulmonary hypertension. The PA pressure was estimated at 32 mmHg. Th ere is no tricuspid valve stenosis. PULMONIC VALVE The pulmonic valve is not well visualized. Doppler and Color Flow revealed no pulmonic valvular regur gitation. There is no pulmonic valvular stenosis. GREAT VESSELS The aortic root is normal in size. The ascending aorta is not well seen. The IVC is dilated and colla pses <50% with inspiration. PERICARDIAL EFFUSION There is no evidence of significant pericardial effusion. Critical Notification Critical Value: No <Conclusion> The left ventricular systolic function is normal. The Ejection Fraction is 55-60%. There is normal LV segmental wall motion. Mild aortic regurgitation. Trace tricuspid regurgitation. The PA pressure was estimated at 32 mmHg. There is no evidence of significant pericardial effusion. Signed by : Simeon Gerardo, Electronically Approved : 03/06/2018 10:13:23
== END | disposition home or self-care (01) ==
LOC: ECHO 08:46
PROVIDERS: ATTEND Internal Medicine Cardiovascular Disease
DX: I35.1 Nonrheumatic aortic (valve) insufficiency (principal); I25.10 Atherosclerotic heart disease of native coronary artery without angina pectoris; I13.0 Hypertensive heart and chronic kidney disease with heart failure and stage 1 through stage 4 chronic kidney disease, or unspecified chronic kidney disease; E11.22 Type 2 diabetes mellitus with diabetic chronic kidney disease; N18.3 Chronic kidney disease, stage 3 (moderate); I50.32 Chronic diastolic (congestive) heart failure; E78.5 Hyperlipidemia, unspecified
CPT/HCPCS: 93306

== ENCOUNTER → 2018-09-05 | Outpatient (CLI) | payer BC ==
[~2018-09-05] MED LIST changes: +HYDR-3164 PO; -HYDR-971 PO
== END | disposition home or self-care (01) ==
LOC: PMGWOUND 08:08
PROVIDERS: ATTEND Preventive Medicine Undersea and Hyperbaric Medicine
DX: E11.622 Type 2 diabetes mellitus with other skin ulcer (principal); L97.221 Non-pressure chronic ulcer of left calf limited to breakdown of skin; L97.211 Non-pressure chronic ulcer of right calf limited to breakdown of skin; E11.21 Type 2 diabetes mellitus with diabetic nephropathy; I13.0 Hypertensive heart and chronic kidney disease with heart failure and stage 1 through stage 4 chronic kidney disease, or unspecified chronic kidney disease; E11.22 Type 2 diabetes mellitus with diabetic chronic kidney disease; N18.3 Chronic kidney disease, stage 3 (moderate); I50.33 Acute on chronic diastolic (congestive) heart failure; E78.5 Hyperlipidemia, unspecified; I87.2 Venous insufficiency (chronic) (peripheral); M19.90 Unspecified osteoarthritis, unspecified site; I25.10 Atherosclerotic heart disease of native coronary artery without angina pectoris; Z79.4 Long term (current) use of insulin; Z85.820 Personal history of malignant melanoma of skin
CPT/HCPCS: 97597

== ENCOUNTER → 2018-09-14 | Outpatient (CLI) | payer BC ==
[~2018-09-14] MED LIST changes: +CARV12.511 PO; +CARV25TA2 PO; +FLUO20CA8 PO; +FURO20TA3 PO; +FURO40TA4 PO; +INSU100I13 SQ; +INSU100V8 SQ; +NYST60PO TP; +PANT20TA2 PO; +POTA10TA12 PO; +TAMS0.4C97 PO
== END | disposition home or self-care (01) ==
LOC: PMGWOUND 09:26
PROVIDERS: ATTEND Preventive Medicine Undersea and Hyperbaric Medicine
DX: E11.622 Type 2 diabetes mellitus with other skin ulcer (principal); L97.222 Non-pressure chronic ulcer of left calf with fat layer exposed; L97.811 Non-pressure chronic ulcer of other part of right lower leg limited to breakdown of skin; L97.211 Non-pressure chronic ulcer of right calf limited to breakdown of skin; E11.21 Type 2 diabetes mellitus with diabetic nephropathy; I13.0 Hypertensive heart and chronic kidney disease with heart failure and stage 1 through stage 4 chronic kidney disease, or unspecified chronic kidney disease; E11.22 Type 2 diabetes mellitus with diabetic chronic kidney disease; N18.3 Chronic kidney disease, stage 3 (moderate); I50.33 Acute on chronic diastolic (congestive) heart failure; I87.2 Venous insufficiency (chronic) (peripheral); E78.5 Hyperlipidemia, unspecified; M19.90 Unspecified osteoarthritis, unspecified site; I25.10 Atherosclerotic heart disease of native coronary artery without angina pectoris; Z79.4 Long term (current) use of insulin; Z85.820 Personal history of malignant melanoma of skin
CPT/HCPCS: 11042; 11045; 97597; 97598

== ENCOUNTER → 2018-09-20 | Outpatient (CLI) | payer BC ==
--- NOTE | 2018-09-20 16:09 | RAD ---
Bilateral lower extremity arterial duplex ultrasound 09/20/2018 INDICATION: Bilateral nonhealing wounds. Former smoker. . Discussion: Ultrasound evaluation of the major arteries of the bilateral lower extremities was performed including color Doppler imaging spectral analysis. Right lower extremity: Grossly normal waveforms are seen throughout the major arteries of the right lower extremity. No high-grade visual stenoses are identified. No focal elevation velocity consistent with a hemodynamically significant stenosis is seen. Diffuse atherosclerotic vascular calcification is noted, more prominently in the distal lower extremity. Left lower extremity: Blunted monophasic flow seen in the left posterior tibial artery. Normal waveform morphology and velocities are noted within the left anterior tibial artery and dorsalis pedis artery. Similar to the contralateral side, there is diffuse atherosclerotic vascular disease is seen. No other focal high-grade stenoses are identified visually, or by increase in velocity. Diffuse lower extremity subcutaneous edema is noted bilaterally. IMPRESSION: 1. Probable hemodynamically significant stenosis involving the posterior tibial artery on the left. 2. No other hemodynamically significant stenosis is identified. 3. Diffuse atherosclerotic vascular disease particularly involving arteries below the knee. 4. In the setting of nonhealing wounds, further evaluation with conventional angiography, which can provide more detailed evaluation of distal lower extremity arteries, may be helpful. Electronically signed by: Man Florian MD (09/20/2018 4:06 PM) [id number]
--- NOTE | 2018-09-20 16:28 | RAD ---
Bilateral lower extremity venous reflux ultrasound. History: Bilateral lower extremity nonhealing ulcers, lower extremity swelling. Comparison: None. Procedure: Color flow Doppler, spectral Doppler analysis, and 2D images are obtained with and without patient performing Valsalva maneuver of the superficial veins of both lower extremities. Findings: Upper right greater saphenous vein is patent, diameter is 6 mm, there is no reflux. Anterior accessory saphenous vein is noted. There are 2 right calf perforators that are negative for reflux. There is a mildly enlarged lymph node in the right groin measuring 2 x 1.4 x 1.9 cm. Left greater saphenous vein is patent, diameter is 7 mm, reflux is not significant measuring 0.2 seconds. Anterior accessory saphenous vein is noted. No reflux is demonstrated in the right or left lesser saphenous veins. Right diameter is 3 mm, left is 4 mm. There is severe subcutaneous edema in the right and left calves. IMPRESSION: 1. There is no significant right or left greater or lesser saphenous vein reflux. 2. Severe subcutaneous edema of the bilateral calves. 3. Mildly enlarged lymph node in the right groin. Electronically signed by: Tyler Wilson MD (09/20/2018 4:25 PM) [id number]
== END | disposition home or self-care (01) ==
LOC: US 13:26
PROVIDERS: ATTEND Preventive Medicine Undersea and Hyperbaric Medicine
DX: L97.929 Non-pressure chronic ulcer of unspecified part of left lower leg with unspecified severity (principal); L97.919 Non-pressure chronic ulcer of unspecified part of right lower leg with unspecified severity; I25.10 Atherosclerotic heart disease of native coronary artery without angina pectoris; E11.9 Type 2 diabetes mellitus without complications; R60.0 Localized edema; R59.0 Localized enlarged lymph nodes
CPT/HCPCS: 93925; 93970

== ENCOUNTER → 2018-09-21 | Outpatient (CLI) | payer BC | END | disposition home or self-care (01) | LOC: PMGWOUND 08:59 | PROVIDERS: ATTEND Preventive Medicine Undersea and Hyperbaric Medicine | DX: E11.622 Type 2 diabetes mellitus with other skin ulcer (principal); L97.222 Non-pressure chronic ulcer of left calf with fat layer exposed; E11.21 Type 2 diabetes mellitus with diabetic nephropathy; I13.0 Hypertensive heart and chronic kidney disease with heart failure and stage 1 through stage 4 chronic kidney disease, or unspecified chronic kidney disease; E11.22 Type 2 diabetes mellitus with diabetic chronic kidney disease; N18.3 Chronic kidney disease, stage 3 (moderate); I50.33 Acute on chronic diastolic (congestive) heart failure; I87.2 Venous insufficiency (chronic) (peripheral); E78.5 Hyperlipidemia, unspecified; M19.90 Unspecified osteoarthritis, unspecified site; I25.10 Atherosclerotic heart disease of native coronary artery without angina pectoris; Z79.4 Long term (current) use of insulin; Z85.820 Personal history of malignant melanoma of skin | CPT/HCPCS: 11042; 11045; 29581 ==

== ENCOUNTER → 2018-09-24 | Outpatient (CLI) | payer BC | END | disposition home or self-care (01) | LOC: PMGWOUND 09:22 | PROVIDERS: ATTEND Preventive Medicine Undersea and Hyperbaric Medicine | DX: E11.622 Type 2 diabetes mellitus with other skin ulcer (principal); L97.221 Non-pressure chronic ulcer of left calf limited to breakdown of skin; E11.21 Type 2 diabetes mellitus with diabetic nephropathy; I13.0 Hypertensive heart and chronic kidney disease with heart failure and stage 1 through stage 4 chronic kidney disease, or unspecified chronic kidney disease; E11.22 Type 2 diabetes mellitus with diabetic chronic kidney disease; N18.3 Chronic kidney disease, stage 3 (moderate); I50.33 Acute on chronic diastolic (congestive) heart failure; E78.5 Hyperlipidemia, unspecified; I87.2 Venous insufficiency (chronic) (peripheral); M19.90 Unspecified osteoarthritis, unspecified site; I25.10 Atherosclerotic heart disease of native coronary artery without angina pectoris; Z79.4 Long term (current) use of insulin; Z85.820 Personal history of malignant melanoma of skin | CPT/HCPCS: 29581 ==

== ENCOUNTER → 2018-09-28 | Outpatient (CLI) | payer BC ==
[~2018-09-28] VITALS: Ht 188 cm; Wt 111.1 kg
[2018-09-28] VITALS (13 sets, daily range): BP systolic 90–114; BP diastolic 57–73
[~2018-09-28] MED LIST changes: +CONTRAST GIVEN. MC PRN; +HEPARIN for ARTERIAL LINE 1,500 ML ONE; +HEPARIN for IV BOLUS 10,000 UNIT/10 ML VIAL. ONE; +IODIXANOL 320 MG/ML 100 ML VIAL. IART ONE; +IODIXANOL 320 MG/ML 100 ML VIAL. ONE; +IODIXANOL 320 MG/ML 50ML VIAL. ONE; +LIDOCAINE WITH 8.4% SOD BICARB 3 ML DISP.SYRIN. IJ ONE; +LIDOCAINE WITH 8.4% SOD BICARB 3 ML DISP.SYRIN. ONE; +MIDAZOLAM HCL/PF 2 MG/2 ML VIAL. IV ONE; +MIDAZOLAM HCL/PF 2 MG/2 ML VIAL. ONE; +fentaNYL PF VIAL 100 MCG/2 ML VIAL IV ONE; +fentaNYL PF VIAL 100 MCG/2 ML VIAL ONE
[2018-09-28 07:55] LABS: CALCIUM 8.7 mg/dL (8.5-10.1); CREATININE 1.4 mg/dL (0.7-1.3); GFR 49.8; POTASSIUM 3.8 mmol/L (3.5-5.1)
[2018-09-28 07:56] LABS: BASO % 0 % (0-3); EOS # 0.2 x10^3/uL (0.0-0.7); EOS % 4 % (0-3); LYMPH # 0.4 x10^3/uL (1.0-4.8); LYMPH % 6 % (24-48); MEAN CORPUSCULAR HEMOGLOBIN 32 pg (25-35); MEAN CORPUSCULAR HGB CONC 33 g/dL (31-37); MEAN CORPUSCULAR VOLUME 96 fL (79-100); MONO # 0.7 x10^3/uL (0.0-1.1); MONO % 10 % (0-9); NEUT % 80 % (31-73); PLATELET COUNT 271 x10^3/uL (140-400); RED BLOOD COUNT 4.68 x10^6/uL (4.30-5.70); WHITE BLOOD COUNT 6.3 x10^3/uL (4.0-11.0)
[2018-09-28 07:58] LABS: PROTHROMBIN TIME PATIENT 16.8 SEC (11.7-14.0)
--- NOTE | 2018-09-28 14:14 | RAD ---
09/28/2018 1. CO2 angiography of the pelvis 2. CO2 and contrast angiography of the left lower extremity Indication: Nonhealing wounds, medial leg. Bilateral lower extremity edema. Prior arterial duplex evaluation demonstrates possible posterior tibial artery disease. Discussion: The risks and benefits of the procedure were discussed the patient. Informed consent was obtained. Timeout procedure was performed. The right groin was prepped and draped using maximum sterile barrier technique. 1% lidocaine was used for local anesthesia. Using collimation ultrasound fluoroscopic guidance the right common femoral artery was accessed. This was confirmed with angiography. 5 Tongan vascular sheath was placed. Nonocclusive catheter was advanced into the inferior abdominal aorta. Pelvic angiogram's were obtained demonstrating tortuosity of the aortoiliac vasculature without evidence of flow limiting stenosis. Using examination of CO2 contrast, and dilute iodinated contrast, left lower extremity angiography was performed. Minimal atherosclerotic vascular irregularity is seen without significant stenosis involving the left superficial femoral artery or popliteal artery. All 3 tibial vessels are patent. Good flow throughout the posterior tibial artery and the lateral plantar artery is seen. The dorsalis pedis artery is widely patent. A Mynx device was deployed in the right groin to achieve hemostasis. The procedure was performed under conscious sedation including continuous cardiopulmonary monitoring via dedicated sedation nurse. Ciyy-po-zpep sedation time: 45 minutes Total fluoroscopy time:: 13.4 min Dose area product: 431 Gycm2 Impression: Minimal changes of atherosclerotic vascular disease without hemodynamically significant aortoiliac, femoropopliteal, or runoff vessel disease
--- NOTE | 2018-09-28 16:07 | NUR ---
Discharge Note: VERONICA BONILLA Discharge instructions and discharge home medications reviewed with Patient and a copy given. All questions have been answered and understanding verbalized. The following instructions and handouts were given: education was given to patient regarding moderate sedation, and groin site care. Pt was also instructed to continue home medications. Pt verbalized understanding. Discontinued lines and drains: peripheral iv was discontinued with no complications. Catheter tip was intact. Patient discharged to home with self care via wheelchair. Pt was accompanied by .
== END | disposition home or self-care (01) ==
LOC: INTRAD 07:01
PROVIDERS: ATTEND Preventive Medicine Undersea and Hyperbaric Medicine
DX: I70.242 Atherosclerosis of native arteries of left leg with ulceration of calf (principal); L97.221 Non-pressure chronic ulcer of left calf limited to breakdown of skin; I70.232 Atherosclerosis of native arteries of right leg with ulceration of calf; L97.211 Non-pressure chronic ulcer of right calf limited to breakdown of skin; Z87.891 Personal history of nicotine dependence; I13.0 Hypertensive heart and chronic kidney disease with heart failure and stage 1 through stage 4 chronic kidney disease, or unspecified chronic kidney disease; E11.22 Type 2 diabetes mellitus with diabetic chronic kidney disease; I50.32 Chronic diastolic (congestive) heart failure; N18.9 Chronic kidney disease, unspecified; Z79.4 Long term (current) use of insulin
CPT/HCPCS: 36200; 36415; 75625; 75710; 76937; 80048; 85025; 85610; 99152; 99153; C1713; C1760; C1769; C1892; C1894; J1644; J2250; J3010; Q9967; G0269

== ENCOUNTER → 2018-10-04 | Outpatient (CLI) | payer BC ==
[2018-09-28 13:00] VITALS: BP 100/67
[~2018-10-04] MED LIST changes: -CONTRAST GIVEN. MC PRN; -HEPARIN for ARTERIAL LINE 1,500 ML ONE; -HEPARIN for IV BOLUS 10,000 UNIT/10 ML VIAL. ONE; -IODIXANOL 320 MG/ML 100 ML VIAL. IART ONE; -IODIXANOL 320 MG/ML 100 ML VIAL. ONE; -IODIXANOL 320 MG/ML 50ML VIAL. ONE; -LIDOCAINE WITH 8.4% SOD BICARB 3 ML DISP.SYRIN. IJ ONE; -LIDOCAINE WITH 8.4% SOD BICARB 3 ML DISP.SYRIN. ONE; -MIDAZOLAM HCL/PF 2 MG/2 ML VIAL. IV ONE; -MIDAZOLAM HCL/PF 2 MG/2 ML VIAL. ONE; -fentaNYL PF VIAL 100 MCG/2 ML VIAL IV ONE; -fentaNYL PF VIAL 100 MCG/2 ML VIAL ONE
--- NOTE | 2018-10-04 13:35 | RAD ---
EXAM: Chest, 2 views. HISTORY: Heart failure. COMPARISON: 01/26/2017 FINDINGS: 2 views the chest are obtained. There are small left greater than right pleural effusions with diffuse central predominant interstitial infiltrate. There is suspected superimposed left lower lobe partial collapse. There is no pneumothorax. The heart is normal in size. IMPRESSION: 1. Small left greater than right pleural effusions. 2. Diffuse central predominant interstitial infiltrate. 3. Suspected left lower lobe partial collapse. Electronically signed by: Cathreine Molina MD (10/04/2018 1:32 PM) [id number]
== END | disposition home or self-care (01) ==
LOC: RAD 10:44
PROVIDERS: ATTEND Preventive Medicine Undersea and Hyperbaric Medicine
DX: J90 Pleural effusion, not elsewhere classified (principal); I50.32 Chronic diastolic (congestive) heart failure; R91.8 Other nonspecific abnormal finding of lung field
CPT/HCPCS: 71046

== ENCOUNTER → 2018-10-04 | Outpatient (CLI) | payer BC ==
[2018-09-28 13:00] VITALS: BP 100/67
== END | disposition home or self-care (01) ==
LOC: PMGWOUND 09:19
PROVIDERS: ATTEND Emergency Medicine Undersea and Hyperbaric Medicine
DX: E11.622 Type 2 diabetes mellitus with other skin ulcer (principal); L97.221 Non-pressure chronic ulcer of left calf limited to breakdown of skin; L97.211 Non-pressure chronic ulcer of right calf limited to breakdown of skin; E11.21 Type 2 diabetes mellitus with diabetic nephropathy; I13.0 Hypertensive heart and chronic kidney disease with heart failure and stage 1 through stage 4 chronic kidney disease, or unspecified chronic kidney disease; E11.22 Type 2 diabetes mellitus with diabetic chronic kidney disease; N18.3 Chronic kidney disease, stage 3 (moderate); I50.33 Acute on chronic diastolic (congestive) heart failure; E78.5 Hyperlipidemia, unspecified; I87.2 Venous insufficiency (chronic) (peripheral); M19.90 Unspecified osteoarthritis, unspecified site; I25.10 Atherosclerotic heart disease of native coronary artery without angina pectoris; Z79.4 Long term (current) use of insulin; Z85.820 Personal history of malignant melanoma of skin
CPT/HCPCS: 29581; 82962

== ENCOUNTER 2018-10-05 00:35 | Inpatient (IN) | payer BC ==
[~2018-10-05] VITALS: Ht 188 cm; Wt 114.8 kg
[~2018-10-05 00:35] MED LIST changes: -CARV25TA2 PO; -FLUO20CA8 PO; -FURO20TA3 PO; -INSU100V8 SQ; -NYST60PO TP; -TAMS0.4C97 PO
[2018-10-05 01:59] LABS: BASO % 1 % (0-3); EOS # 0.2 x10^3/uL (0.0-0.7); EOS % 4 % (0-3); HEMATOCRIT 44.4 % (39.0-53.0); HEMOGLOBIN 14.5 g/dL (13.0-17.5); LYMPH # 0.5 x10^3/uL (1.0-4.8); LYMPH % 8 % (24-48); MEAN CORPUSCULAR HEMOGLOBIN 32 pg (25-35); MEAN CORPUSCULAR HGB CONC 33 g/dL (31-37); MEAN CORPUSCULAR VOLUME 97 fL (79-100); MONO # 0.6 x10^3/uL (0.0-1.1); MONO % 11 % (0-9); NEUT # 4.3 x10^3uL (1.8-7.7); NEUT % 76 % (31-73); PLATELET COUNT 248 x10^3/uL (140-400); RED BLOOD COUNT 4.56 x10^6/uL (4.30-5.70); RED CELL DISTRIBUTION WIDTH 15.2 % (11.5-14.5); WHITE BLOOD COUNT 5.6 x10^3/uL (4.0-11.0)
[2018-10-05] MEDS ORDERED: FUROSEMIDE 40 MG/4 ML VIAL. IVP ONE ×2 (02:00→12:00)
[2018-10-05 02:15] LABS: CALCIUM 8.6 mg/dL (8.5-10.1); CREATININE 1.2 mg/dL (0.7-1.3); GFR 59.5; POTASSIUM 4.4 mmol/L (3.5-5.1)
--- NOTE | 2018-10-05 02:18 | PHYS DOC ---
Past Medical History Past Medical History: Diabetes-Type II, Other Additional Past Medical Histor: OSTEOARTHRITIS, SKIN CANCER, NEUROPATHY Past Surgical History: Knee Replacement, Other Additional Past Surgical Histo: BILATERAL KNEE, GASTRIC BI PASS Alcohol Use: Rarely Drug Use: None Adult General Chief Complaint Chief Complaint: PELVIC PAIN HPI HPI Patient is a 73-year-old male who presents with complaint of several day history of worsening swelling to his legs, buttocks, groin, scrotum and penis. He indicates that he is been having some intermittent shortness of breath as well. Patient states that he takes Lasix 40 mg at home. He states that the swelling is progressively getting worse. He states that he does have pain in these areas that he describes as achy type pain and rates it at a 5 out of 10. He denies any fever. He also denies any nausea, vomiting or diarrhea. Patient states the shortness of breath is worsened when he lies down flat or when he exerts himself. He does indicate that he has been feeling rather weak is well lately. He states that he feels like he is probably a fall risk. Review of Systems Review of Systems Constitutional: Denies fever or chills [] Respiratory: Complains of shortness of breath [] Cardiovascular: No additional information not addressed in HPI [] GI: Denies abdominal pain, nausea, vomiting or diarrhea [] Musculoskeletal: Complains of lower extremity pain [] All other systems were reviewed and found to be within normal limits, except as documented in this note. Current Medications Current Medications Current Medications Medications (Trade) Dose Ordered Sig/Meghana Start Time Stop Time Status Last Admin Dose Admin Furosemide (Lasix) 80 mg 1X ONCE 10/05/18 02:00 10/05/18 02:01 DC 10/05/18 02:19 80 MG Allergies Allergies Allergies Coded Allergies Type Severity Reaction Last Updated Verified No Known Drug Allergies 11/23/16 No Physical Exam Physical Exam Constitutional: Well developed, well nourished, no acute distress, non-toxic appearance. [] HENT: Normocephalic, atraumatic, bilateral external ears normal, oropharynx moist, no oral exudates, nose normal. [] Eyes: PERRLA, EOMI, conjunctiva normal, no discharge. [] Neck: Normal range of motion, no tenderness, supple, no stridor. [] Cardiovascular: Regular rate and rhythm[] Lungs & Thorax: Fine rales noted bilaterally to auscultation [] Abdomen: Bowel sounds normal, soft, no tenderness. [] Skin: Warm, dry, no erythema, no rash. [] Extremities: No cyanosis, no clubbing, ROM intact, with marked pitting edema extending up through upper thighs, buttocks and into back. [] Neurologic: Alert and oriented X 3, no focal deficits noted. [] Current Patient Data Vital Signs Vital Signs Date Time Temp Pulse Resp B/P (MAP) Pulse Ox O2 Delivery O2 Flow Rate FiO2 10/05/18 00:55 97.4 76 18 93/55 (68) 95 Room Air 97.4 Lab Values Laboratory Tests Test 10/05/18 01:40 White Blood Count 5.6 x10^3/uL (4.0-11.0) Red Blood Count 4.56 x10^6/uL (4.30-5.70) Hemoglobin 14.5 g/dL (13.0-17.5) Hematocrit 44.4 % (39.0-53.0) Mean Corpuscular Volume 97 fL (79-100) Mean Corpuscular Hemoglobin 32 pg (25-35) Mean Corpuscular Hemoglobin Concent 33 g/dL (31-37) Red Cell Distribution Width 15.2 % (11.5-14.5) H Platelet Count 248 x10^3/uL (140-400) Neutrophils (%) (Auto) 76 % (31-73) H Lymphocytes (%) (Auto) 8 % (24-48) L Monocytes (%) (Auto) 11 % (0-9) H Eosinophils (%) (Auto) 4 % (0-3) H Basophils (%) (Auto) 1 % (0-3) Neutrophils # (Auto) 4.3 x10^3uL (1.8-7.7) Lymphocytes # (Auto) 0.5 x10^3/uL (1.0-4.8) L Monocytes # (Auto) 0.6 x10^3/uL (0.0-1.1) Eosinophils # (Auto) 0.2 x10^3/uL (0.0-0.7) Basophils # (Auto) 0.0 x10^3/uL (0.0-0.2) Sodium Level 144 mmol/L (136-145) Potassium Level 4.4 mmol/L (3.5-5.1) Chloride Level 109 mmol/L (98-107) H Carbon Dioxide Level 23 mmol/L (21-32) Anion Gap 12 (6-14) Blood Urea Nitrogen 34 mg/dL (8-26) H Creatinine 1.2 mg/dL (0.7-1.3) Estimated GFR (Cockcroft-Gault) 59.5 BUN/Creatinine Ratio 28 (6-20) H Glucose Level 105 mg/dL (70-99) H Calcium Level 8.6 mg/dL (8.5-10.1) Magnesium Level 2.0 mg/dL (1.8-2.4) Total Bilirubin 0.8 mg/dL (0.2-1.0) Aspartate Amino Transferase (AST) 81 U/L (15-37) H Alanine Aminotransferase (ALT) 62 U/L (16-63) Alkaline Phosphatase 106 U/L (46-116) Troponin I Quantitative < 0.017 ng/mL (0.000-0.055) LS-Vpt-M-Type Natriuretic Peptide 972 pg/mL (0-124) H Total Protein 5.7 g/dL (6.4-8.2) L Albumin 2.5 g/dL (3.4-5.0) L Albumin/Globulin Ratio 0.8 (1.0-1.7) L Laboratory Tests 10/05/18 01:40 Laboratory Tests 10/05/18 01:40 EKG EKG [] Radiology/Procedures Radiology/Procedures [] Course & Med Decision Making Course & Med Decision Making Pertinent Labs and Imaging studies reviewed. (See chart for details) [] Dragon Disclaimer Dragon Disclaimer This electronic medical record was generated, in whole or in part, using a voice recognition dictation system. Departure Departure Impression: Primary Impression: Anasarca Disposition: ADMITTED INPATIENT Admitting Physician: Terry Pastrana Condition: GOOD Referrals: TERRY PASTRANA MD (PCP) ANDREIA GARCIA Jr. DO Oct 05, 2018 02:18
[2018-10-05 02:28] LABS: ALBUMIN 2.5 g/dL (3.4-5.0); ALBUMIN/GLOBULIN RATIO 0.8 (1.0-1.7); TOTAL BILIRUBIN 0.8 mg/dL (0.2-1.0); TOTAL PROTEIN 5.7 g/dL (6.4-8.2)
[2018-10-05 03:18] LABS: BILIRUBIN,URINE NEGATIVE (NEG); CLARITY,URINE CLEAR; COLOR,URINE YELLOW; NITRITE,URINE NEGATIVE (NEG); PROTEIN,URINE NEGATIVE (NEG-TRACE); UROBILINOGEN,URINE 0.2 mg/dL (0.2 mg/dL)
[2018-10-05 03:39] LABS: BACTERIA,URINE 0 /HPF (0-FEW); HYALINE CASTS, URINE FEW /HPF; RBC,URINE OCC /HPF (0-2); SQUAMOUS EPITHELIAL CELL,UR FEW /LPF; WBC,URINE OCC /HPF (0-4)
[2018-10-05 04:15] VITALS: BP 98/53
--- NOTE | 2018-10-05 04:15 | RAD ---
Indication:dyspnea TECHNIQUE:Portable AP chest X-ray COMPARISON:10/04/2018 FINDINGS: Heart is normal in size. Blunting of the left costophrenic angle is seen. Diffuse mild prominence of interstitium. No pneumothorax. Visualized bony thorax within normal limits. IMPRESSION: Small left pleural effusion. Trace interstitial edema. Electronically signed by: Mian Chow DO (10/05/2018 4:12 AM) [facility]
--- NOTE | 2018-10-05 04:20 | NUR ---
The patient, VERONICA BONILLA, 73 y/o, M admitted by VANDANA FROST MD, was given written information regarding hospital policies, unit procedures and contact persons. Valuables were checked and left with the patient. .
--- NOTE | 2018-10-05 05:22 | EKG ---
[facility] [address] [place] [address] Test Date: 2018-10-05 Test Time: 02:40:03 Pat Name: VERONICA BONILLA Department: Room: 508 1 Gender: M Transition Rn: [id number] : 1945 Requested By: ANDREIA GARCIA Order Number: [id number] Reading MD: Jim Escalona MD Measurements Intervals [place] Rate: 74 P: 0 MS: 134 QRS: -24 QRSD: 72 T: 31 QT: 436 QTc: 489 Interpretive Statements SINUS RHYTHM BASELINE ARTIFACT NON-SPECIFIC ST/T CHANGES LOW VOLTAGE Electronically Signed On 11-16-2018 14:42:17 CDT by Jim Escalona MD
[2018-10-05 07:00] VITALS: BP 96/62
[2018-10-05] MEDS: CARVEDILOL 12.5 MG TABLET. PO SCH ×2 (09:00→17:31)
[2018-10-05] MEDS ORDERED: POTASSIUM CHLORIDE 10 MEQ TABLET.ER. PO SCH (09:00)
[2018-10-05] MEDS: FUROSEMIDE 40 MG TABLET. PO SCH (09:00)
--- NOTE | 2018-10-05 09:06 | PDOC ---
Provider Note Provider Note [id number] VANDANA FROST MD Oct 05, 2018 09:06
--- NOTE | 2018-10-05 09:24 | NUR ---
SW following pt for anticipated dc needs. Chart reviewed and discussed with RN. Pt lives at home with spouse. No discharge recommendations/SW needs noted at this time. Will continue to assess needs.
--- NOTE | 2018-10-05 09:33 | HP ---
ADMIT DATE: 10/05/2018 CHIEF COMPLAINT: Swollen legs. HISTORY OF PRESENT ILLNESS: A 73-year-old white male with mild insulin-dependent diabetes and venous stasis problems, had left lower extremity arteriogram on 09/28 here at [place] which was found to be unremarkable and no interventions were done. Sometime before that and since then he has had increasing swelling in both lower extremities despite no new medications, salt intake or obvious cause for this. His edema was extensive and a Weber catheter placed and IV Lasix and has diuresed over 2 liters so far. He denies cough, fever, chills, chest pain or other specific complaints. He has no history of cardiac disease and an echo a few months ago showed a normal ejection fraction of 55%. PAST MEDICAL HISTORY: Well documented in the old records. ALLERGIES: No allergies. MEDICATIONS: Multiple. Followed at for his diabetes. SOCIAL HISTORY: Nonsmoker, , not physically active, nondrinker. FAMILY HISTORY: Unremarkable. REVIEW OF SYSTEMS: No other complaints. OBJECTIVE: ENT: All within normal limits. NECK: No bruits, nodes or masses. LUNGS: Clear, without tachypnea. CARDIOVASCULAR: Regular rate. Distant heart tones due to lower blood pressure. No murmurs heard. ABDOMEN: Soft, obese, benign and nontender. EXTREMITIES: He has 2-3+ pitting edema in both lower extremities, thighs. The calves and lower legs are wrapped up extensively, and the edema is not really present there. He has scrotal and penile edema as well as the edema in the lower abdominal wall. NEUROLOGIC: Physiologic, nonfocal. Alert, oriented, responsive. ASSESSMENT: Bilateral lower extremity edema, etiology not completely clear. Recent arteriogram does not appear to be related and has no history of any congestive heart failure, renal failure, low protein or other etiologies Diabetes is well controlled. PLAN: Continue Lasix, diuresis. Doppler both lower extremities regarding venous problems. VANDANA FROST MD DR: ROSA M/starla JOB#: [id number] / [id number]
--- NOTE | 2018-10-05 09:56 | RAD ---
Bilateral lower extremity venous ultrasound, 10/05/2018: History: Leg edema Duplex evaluation of the deep veins in the lower extremities was performed including grayscale, color-flow and spectral Doppler analysis. The femoral and popliteal veins demonstrate normal compressibility and normal responses to distal augmentation maneuvers. Color imaging of those vessels shows no evidence of intraluminal clot. The visualized deep veins in both calves are patent. Subcutaneous edema is noted in both lower extremities. IMPRESSION: There is no sonographic evidence of deep vein thrombosis in either lower extremity. Electronically signed by: Bill Reid MD (10/05/2018 9:53 AM) [facility]
[2018-10-05] MEDS: PANTOPRAZOLE 40 MG TABLET.DR. PO SCH (10:40)
[2018-10-05 11:00] VITALS: BP 98/58
[2018-10-05] MEDS: POTASSIUM CHLORIDE 10 MEQ TABLET.ER. PO SCH ×2 (12:30→17:31)
--- NOTE | 2018-10-05 14:32 | NUR ---
Wound care: Patient seen per wound care consult. See wound assessment. Patient is well to us in the wound clinic. Patient just seen in clinic on . Dressings removed and wounds cleansed and assessed. To the bilateral lower extremities recommendations for contact layer, ABD pads, kerlix, and tape. To the right knee recommendations for contact layer and foam dressing. No other wounds noted upon complete head to toe assessment. Dressing change instructions left in room. Patient repositioned and bilateral legs elevated. Patient educated on turning. call light in reach and bed lowered. Will follow patient regarding wound care.
[2018-10-05 15:00] VITALS: BP 113/65
[2018-10-05] MEDS: traMADol 50 MG TABLET PO PRN (17:42)
[2018-10-05 19:00] VITALS: BP 91/67
[2018-10-05] MEDS: ATORVASTATIN CALCIUM 40 MG TABLET. PO SCH (21:00)
[2018-10-05] MEDS ORDERED: INSULIN GLARGINE 300 UNITS/3 ML INSULN.PEN. SQ SCH (21:00)
[2018-10-05 22:57] VITALS: BP 104/65
[2018-10-06 03:00] VITALS: BP 108/64
[2018-10-06 07:10] VITALS: BP 95/63
[2018-10-06] MEDS: CARVEDILOL 12.5 MG TABLET. PO SCH ×2 (08:00→17:05)
[2018-10-06] MEDS: POTASSIUM CHLORIDE 10 MEQ TABLET.ER. PO SCH ×3 (08:11→17:05)
[2018-10-06] MEDS: traMADol 50 MG TABLET PO PRN (08:11)
[2018-10-06] MEDS: PANTOPRAZOLE 40 MG TABLET.DR. PO SCH (08:11)
[2018-10-06] MEDS: FUROSEMIDE 40 MG TABLET. PO SCH (09:00)
[2018-10-06 11:25] VITALS: BP 108/58
--- NOTE | 2018-10-06 11:38 | PDOC ---
Provider Note Provider Note vss, glucose ok- thigh edema less- rashawn sono clear, abd soft- 1 more iv lasix today, less insulin VANDANA FROST MD Oct 06, 2018 11:38
[2018-10-06] MEDS ORDERED: FUROSEMIDE 40 MG/4 ML VIAL. IVP ONE (11:45)
[2018-10-06 15:15] VITALS: BP 103/68
[2018-10-06 19:00] VITALS: BP 100/54
[2018-10-06] MEDS ORDERED: INSULIN GLARGINE 300 UNITS/3 ML INSULN.PEN. SQ SCH (21:00)
[2018-10-06] MEDS: ATORVASTATIN CALCIUM 40 MG TABLET. PO SCH (21:12)
[2018-10-06] MEDS: INSULIN GLARGINE 300 UNITS/3 ML INSULN.PEN. SQ SCH (21:40)
[2018-10-06 23:00] VITALS: BP 92/59
[2018-10-07 03:00] VITALS: BP 126/70
[2018-10-07] MEDS: traMADol 50 MG TABLET PO PRN ×2 (03:55→09:34)
[2018-10-07 07:00] VITALS: BP 101/64
[2018-10-07 08:40] LABS: CALCIUM 8.4 mg/dL (8.5-10.1); CREATININE 1.2 mg/dL (0.7-1.3); GFR 59.5; POTASSIUM 4.1 mmol/L (3.5-5.1)
[2018-10-07] MEDS: PANTOPRAZOLE 40 MG TABLET.DR. PO SCH (08:48)
[2018-10-07] MEDS: FUROSEMIDE 40 MG TABLET. PO SCH (08:48)
[2018-10-07] MEDS: POTASSIUM CHLORIDE 10 MEQ TABLET.ER. PO SCH ×3 (08:48→17:25)
--- NOTE | 2018-10-07 10:05 | PDOC ---
Provider Note Provider Note edema in thighs, scrotum about same- vss, glucose ok- alb 2.5 may be contributing but no proteinuria- will add 1 dose of metolozone to assess response, keep sutherland in- renal sono but doubt that is an issue VANDANA FROST MD Oct 07, 2018 10:05
[2018-10-07 11:00] VITALS: BP 109/67
[2018-10-07] MEDS: CARVEDILOL 12.5 MG TABLET. PO SCH ×2 (11:50→17:26)
[2018-10-07] MEDS ORDERED: metOLazone 2.5 MG TABLET PO ONE (14:00)
[2018-10-07 15:00] VITALS: BP 90/56
[2018-10-07 19:00] VITALS: BP 101/60
[2018-10-07] MEDS: ATORVASTATIN CALCIUM 40 MG TABLET. PO SCH (20:50)
[2018-10-07] MEDS: INSULIN GLARGINE 300 UNITS/3 ML INSULN.PEN. SQ SCH (21:01)
[2018-10-07 23:00] VITALS: BP 95/57
[2018-10-08 03:00] VITALS: BP 115/68
[2018-10-08] MEDS: traMADol 50 MG TABLET PO PRN (05:01)
[2018-10-08 07:00] VITALS: BP 90/60
[2018-10-08 07:33] LABS: CREATININE 1.2 mg/dL (0.7-1.3); GFR 59.5; POTASSIUM 3.7 mmol/L (3.5-5.1)
--- NOTE | 2018-10-08 08:20 | NUR ---
SW following pt. PT/OT pending. SW will await for PT/OT recommendation to evaluate skilled needs. Will continue to follow.
--- NOTE | 2018-10-08 08:49 | PDOC ---
SUBJECTIVE Subjective Irritated this AM about the lack of significant improvement with his significant LE, scrotal and abdominal edema. Concerned about small quantity loose stools he passes about 2 times daily, but declines treatment to address this. OBJECTIVE Objective Reviewed. Vital Signs Vital Signs Date Time Temp Pulse Resp B/P (MAP) Pulse Ox O2 Delivery O2 Flow Rate FiO2 10/08/18 07:00 98.4 69 18 90/60 (70) 92 Room Air 98.4 10/08/18 05:58 18 Room Air 10/08/18 05:01 16 Room Air 10/08/18 03:00 98.2 74 16 115/68 (84) 92 Room Air 98.2 10/07/18 23:00 98.1 72 16 95/57 (70) 92 Room Air 98.1 10/07/18 20:10 Room Air 10/07/18 19:00 98.3 71 16 101/60 (74) 92 Room Air 98.3 10/07/18 17:26 72 90/56 10/07/18 15:00 97.7 72 16 90/56 (67) 95 Room Air 97.7 10/07/18 11:50 73 109/67 10/07/18 11:00 97.6 73 16 109/67 (81) 93 Room Air 97.6 10/07/18 09:34 Room Air I & O Intake and Output 10/08/18 07:00 Intake Total 550 ml Output Total 1950 ml Balance -1400 ml Intake Oral 550 ml Output Urine Total 1950 ml # Voids 1 PHYSICAL EXAM Physical Exam Alert, oriented RRR CTAB LEs wrapped, edema 2+ in b/l LEs, 1+ up to abdomen Irritable ASSESSMENT/PLAN Assessment/Plan Edema of Bilateral lower extremities, scrotum and abdomen, Alb mildly low Well controlled Diabetes Diarrhea, suspect with such low quantity that could be impacted constipation with stooling around, pt declined stool softener Await US results Change to Lasix 40mg IV BID, repeat labs in AM COMMENT Lab Laboratory Tests Test 10/07/18 11:01 10/07/18 16:50 10/07/18 21:37 10/08/18 06:41 Glucose (Fingerstick) 162 mg/dL (70-99) 150 mg/dL (70-99) 167 mg/dL (70-99) Sodium Level 138 mmol/L (136-145) Potassium Level 3.7 mmol/L (3.5-5.1) Chloride Level 104 mmol/L (98-107) Carbon Dioxide Level 25 mmol/L (21-32) Anion Gap 9 (6-14) Blood Urea Nitrogen 34 mg/dL (8-26) Creatinine 1.2 mg/dL (0.7-1.3) Estimated GFR (Cockcroft-Gault) 59.5 Glucose Level 120 mg/dL (70-99) Calcium Level 8.0 mg/dL (8.5-10.1) Test 10/08/18 07:57 Glucose (Fingerstick) 102 mg/dL (70-99) JEANINE STARK MD Oct 08, 2018 08:49
[2018-10-08] MEDS: PANTOPRAZOLE 40 MG TABLET.DR. PO SCH (09:32)
[2018-10-08] MEDS: POTASSIUM CHLORIDE 10 MEQ TABLET.ER. PO SCH ×3 (09:33→18:03)
[2018-10-08] MEDS: FUROSEMIDE 40 MG/4 ML VIAL. IVP SCH ×2 (09:52→15:51)
[2018-10-08 11:00] VITALS: BP 102/66
[2018-10-08 15:00] VITALS: BP_SYST 101; BP_SYST 142; BP_DIAS 66; BP_DIAS 73
--- NOTE | 2018-10-08 16:22 | RAD ---
Renal sonography Clinical indications: Edema. FINDINGS: The longitudinal and AP and transverse dimensions of the right kidney are 12.2 cm and 6.1 cm and 5.0 cm respectively. Cortical thickness is 16 mm. The longitudinal and AP and transverse dimensions of the left kidney are 0.5 cm and 5.8 cm and 6.2 cm respectively. Cortical thickness of the left kidney is 16 mm. No hydronephrosis or renal mass or perinephric fluid collection is seen on either side. The lower pole of the left kidney is poorly visualized due to overlying bowel gas. The urinary bladder is empty due to an indwelling Weber catheter. There is a small amount of ascites. Small right-sided pleural effusion is seen. A moderate size left-sided pleural effusion is seen. IMPRESSION: No hydronephrosis. Small amount of ascites. Bilateral pleural effusions left greater than right. Electronically signed by: Curly Martinez MD (10/08/2018 4:19 PM) [facility]
[2018-10-08 19:00] VITALS: BP 105/66
[2018-10-08] MEDS: ATORVASTATIN CALCIUM 40 MG TABLET. PO SCH (20:42)
[2018-10-08] MEDS: INSULIN GLARGINE 300 UNITS/3 ML INSULN.PEN. SQ SCH (20:44)
[2018-10-08 23:00] VITALS: BP 105/65
[2018-10-09 03:04] VITALS: BP 91/56
[2018-10-09] MEDS: PANTOPRAZOLE 40 MG TABLET.DR. PO SCH (05:57)
[2018-10-09 07:00] VITALS: BP 111/65
[2018-10-09] MEDS: FUROSEMIDE 40 MG/4 ML VIAL. IVP SCH ×2 (08:05→13:52)
[2018-10-09] MEDS: POTASSIUM CHLORIDE 10 MEQ TABLET.ER. PO SCH ×3 (08:06→17:10)
[2018-10-09 08:09] LABS: CALCIUM 8.3 mg/dL (8.5-10.1); CREATININE 1.3 mg/dL (0.7-1.3); GFR 54.3; POTASSIUM 3.8 mmol/L (3.5-5.1)
[2018-10-09] MEDS ORDERED: POLYETHYLENE GLYCOL 3350 17 GM PACKET. PO PRN (09:30)
[2018-10-09 11:00] VITALS: BP 95/56
[2018-10-09] MEDS ORDERED: NYSTATIN TOPICAL POWDER 15GM BOTTLE. TP SCH (11:00)
[2018-10-09] MEDS: traMADol 50 MG TABLET PO PRN (14:33)
[2018-10-09 15:00] VITALS: BP 105/67
--- NOTE | 2018-10-09 15:00 | NUR ---
Wound Care Pt seen for wound care follow up for bilateral lower extremity wounds. BLE wounds cleaned, measured and photographed, wound beds appear grain cleaner and transfer operator, with less edema. Legs rewrapped with contact layer, ABDs and kerlix. Assisted pt to standing, no wounds found on full skin inspection, but scrotum is weeping from edema. Sling placed under scrotum to help elevate, pt reclined in chair. Pt is scheduled to f/u in the [facility] this Monday at 0930, POC discussed with
--- NOTE | 2018-10-09 16:18 | NUR ---
SW following pt. PT/OT recommends home independent/home assistance. Will continue to evaluate dc needs.
[2018-10-09] MEDS ORDERED: NYST60PO TP ×2 (16:40→16:45)
[2018-10-09] MEDS ORDERED: FURO20TA3 PO (16:41)
--- NOTE | 2018-10-09 18:45 | NUR ---
Discharge Note: VERONICA BONILLA Discharge instructions and discharge home medications reviewed with Patient and a copy given. All questions have been answered and understanding verbalized. The following instructions and handouts were given: Edema Discontinued lines and drains: Peripheral IV intact. Patient discharged to Home or Self Care withFamily Membervia Wheelchair Escored out by Jannette MADERA
--- NOTE | 2018-10-12 22:32 | PDOC3 ---
Discharge Summary Date of Admission: Oct 05, 2018 Date of Discharge: Oct 09, 2018 Admitting Diagnosis comment: Ansarca FINAL DIAGNOSIS Problems Medical Problems: (1) Anasarca Status: Acute Brief Hospital Course Mr. Burk is a 73 year-old white male with mild insulin-dependent diabetes and venous stasis problems, had left lower extremity arteriogram on 09/28 at [facility] which was found to be unremarkable and no interventions were done. Sometime before that and since then he has had increasing swelling in both lower extremities despite no new medications, salt intake or obvious cause for this. He has no history of cardiac disease and an echo a few months ago showed a normal ejection fraction of 55%. His edema was extensive and a Weber catheter placed and IV Lasix and over the course of admission, he diuresed over 10L and lost 12lbs per bed weight. He was agreeable to discharge and was sent home despite not achieving complete resolution of swelling. He will continue Lasix PO at home and will follow up in clinic in one week with Dr. Pastrana. CONDITION AT DISCHARGE: Improved, Stable Discharge Medications Active Scripts Active Reported Nystop (Nystatin) 60 Gm Powder 60 Gm TP BID Carvedilol (Carvedilol) 12.5 Mg Tablet 12.5 Mg PO BIDWMEALS Protonix (Pantoprazole Sodium) 20 Mg Tablet.dr 2 Tab PO DAILY Furosemide 40 Mg Tablet 1 Tab PO DAILY Klor-Con M10 (Potassium Chloride) 10 Meq Tab.er.prt 1 Tab PO BID Lantus Solostar (Insulin Glargine,Hum.rec.anlog) 100 Unit/1 Ml Insuln.pen 24 Unit SQ QHS Atorvastatin Calcium 40 Mg Tablet 1 Tab PO QHS Allergies Allergies Coded Allergies Type Severity Reaction Last Updated Verified No Known Drug Allergies 11/23/16 No Disposition/Orders: D/C to Home JEANINE STARK MD Oct 12, 2018 22:32
== END 2018-10-09 17:20 | disposition home or self-care (01) | DRG 843 ==
LOC: ER 00:35 → 5 NORTH 03:08
PROVIDERS: ADMIT Family Medicine; ATTEND Family Medicine
DX: E88.09 Other disorders of plasma-protein metabolism, not elsewhere classified (principal); E43 Unspecified severe protein-calorie malnutrition; J90 Pleural effusion, not elsewhere classified; R60.1 Generalized edema; I87.8 Other specified disorders of veins; K59.00 Constipation, unspecified; Z96.659 Presence of unspecified artificial knee joint; E11.40 Type 2 diabetes mellitus with diabetic neuropathy, unspecified; M19.90 Unspecified osteoarthritis, unspecified site; Z79.4 Long term (current) use of insulin; Z85.828 Personal history of other malignant neoplasm of skin; Z79.899 Other long term (current) drug therapy
CPT/HCPCS: 36415; 51702; 71045; 71046; 76770; 80048; 80053; 81001; 82962; 83735; 83880; 84484; 85025; 93005; 93970; 96374; J1815; J1940; 97116; 99285-25

== ENCOUNTER → 2018-10-12 | Outpatient (CLI) | payer BC ==
[2018-09-28 13:00] VITALS: BP_DIAS 67
[2018-10-09 15:00] VITALS: BP_SYST 105
[~2018-10-12] MED LIST changes: +CARV25TA2 PO; +FLUO20CA8 PO; +FURO20TA3 PO; +INSU100V8 SQ; +NYST60PO TP; +TAMS0.4C97 PO
== END | disposition home or self-care (01) ==
LOC: PMGWOUND 11:21
PROVIDERS: ATTEND Preventive Medicine Undersea and Hyperbaric Medicine
DX: E11.622 Type 2 diabetes mellitus with other skin ulcer (principal); L97.221 Non-pressure chronic ulcer of left calf limited to breakdown of skin; L97.211 Non-pressure chronic ulcer of right calf limited to breakdown of skin; S80.211A Abrasion, right knee, initial encounter; S61.411A Laceration without foreign body of right hand, initial encounter; E11.40 Type 2 diabetes mellitus with diabetic neuropathy, unspecified; E11.21 Type 2 diabetes mellitus with diabetic nephropathy; I13.0 Hypertensive heart and chronic kidney disease with heart failure and stage 1 through stage 4 chronic kidney disease, or unspecified chronic kidney disease; E11.22 Type 2 diabetes mellitus with diabetic chronic kidney disease; I50.9 Heart failure, unspecified; N18.3 Chronic kidney disease, stage 3 (moderate); I50.33 Acute on chronic diastolic (congestive) heart failure; I87.2 Venous insufficiency (chronic) (peripheral); E78.5 Hyperlipidemia, unspecified; M19.90 Unspecified osteoarthritis, unspecified site; I25.10 Atherosclerotic heart disease of native coronary artery without angina pectoris; Z79.4 Long term (current) use of insulin; Z79.899 Other long term (current) drug therapy; Z85.820 Personal history of malignant melanoma of skin; Z96.659 Presence of unspecified artificial knee joint; X58.XXXA Exposure to other specified factors, initial encounter; Y93.89 Activity, other specified; Y92.89 Other specified places as the place of occurrence of the external cause; Y99.8 Other external cause status
CPT/HCPCS: 11042

== ENCOUNTER → 2018-10-19 | Outpatient (CLI) | payer BC ==
[2018-10-09 15:00] VITALS: BP 105/67
== END | disposition home or self-care (01) ==
LOC: PMGWOUND 09:35
PROVIDERS: ATTEND Preventive Medicine Undersea and Hyperbaric Medicine
DX: E11.622 Type 2 diabetes mellitus with other skin ulcer (principal); L97.221 Non-pressure chronic ulcer of left calf limited to breakdown of skin; L97.211 Non-pressure chronic ulcer of right calf limited to breakdown of skin; S91.311D Laceration without foreign body, right foot, subsequent encounter; E11.40 Type 2 diabetes mellitus with diabetic neuropathy, unspecified; I13.0 Hypertensive heart and chronic kidney disease with heart failure and stage 1 through stage 4 chronic kidney disease, or unspecified chronic kidney disease; E11.22 Type 2 diabetes mellitus with diabetic chronic kidney disease; N18.1 Chronic kidney disease, stage 1; E11.21 Type 2 diabetes mellitus with diabetic nephropathy; I50.33 Acute on chronic diastolic (congestive) heart failure; E78.5 Hyperlipidemia, unspecified; I87.2 Venous insufficiency (chronic) (peripheral); M19.90 Unspecified osteoarthritis, unspecified site; I25.10 Atherosclerotic heart disease of native coronary artery without angina pectoris; Z79.4 Long term (current) use of insulin; Z85.820 Personal history of malignant melanoma of skin; Z79.899 Other long term (current) drug therapy; Z87.891 Personal history of nicotine dependence; Z96.659 Presence of unspecified artificial knee joint; X58.XXXD Exposure to other specified factors, subsequent encounter
CPT/HCPCS: 29581

== ENCOUNTER 2018-11-27 13:52 | Inpatient (IN) | payer BC ==
[~2018-11-27] VITALS: Ht 188 cm; Wt 108.9 kg
[~2018-11-27 13:52] MED LIST changes: -CARV25TA2 PO; -FLUO20CA8 PO; -INSU100V8 SQ; -TAMS0.4C97 PO
--- NOTE | 2018-11-27 14:53 | RAD ---
Chest radiograph 11/27/2018 2:40 PM INDICATION: Pleural effusion COMPARISON: October 05, 2018 TECHNIQUE: Portable upright frontal view of the chest is provided. FINDINGS: The cardiomediastinal silhouette is within normal limits. Increase in moderate left pleural effusion with adjacent compressive atelectasis versus infiltrate. There is suggestion of a pleural line identified along the left lateral lung however pulmonary markings are seen beyond this and findings most favor Mach effect from overlapping soft tissue. No pulmonary vascular congestion. Right lung is clear. IMPRESSION: Increase in moderate-sized left pleural effusion with adjacent compressive atelectasis versus infiltrate. There is suggestion of a pleural line identified along the left lateral lung however pulmonary markings are seen beyond this and findings most favor Mach effect from overlapping soft tissue. Electronically signed by: Bita Bedolla MD (11/27/2018 2:50 PM) [facility]
[2018-11-27 15:08] LABS: BASO % 1 % (0-3); EOS # 0.1 x10^3/uL (0.0-0.7); EOS % 1 % (0-3); HEMATOCRIT 45.9 % (39.0-53.0); HEMOGLOBIN 15.3 g/dL (13.0-17.5); LYMPH # 0.3 x10^3/uL (1.0-4.8); LYMPH % 7 % (24-48); MEAN CORPUSCULAR HEMOGLOBIN 32 pg (25-35); MEAN CORPUSCULAR HGB CONC 33 g/dL (31-37); MEAN CORPUSCULAR VOLUME 97 fL (79-100); MONO # 0.6 x10^3/uL (0.0-1.1); MONO % 11 % (0-9); NEUT % 80 % (31-73); PLATELET COUNT 212 x10^3/uL (140-400); RED BLOOD COUNT 4.74 x10^6/uL (4.30-5.70); RED CELL DISTRIBUTION WIDTH 15.4 % (11.5-14.5)
[2018-11-27 15:17] LABS: CALCIUM 8.5 mg/dL (8.5-10.1); CREATININE 1.1 mg/dL (0.7-1.3); GFR 65.8
[2018-11-27 15:24] LABS: ALBUMIN 2.4 g/dL (3.4-5.0); ALBUMIN/GLOBULIN RATIO 0.6 (1.0-1.7); TOTAL BILIRUBIN 0.7 mg/dL (0.2-1.0); TOTAL PROTEIN 6.1 g/dL (6.4-8.2)
--- NOTE | 2018-11-27 15:42 | PHYS DOC ---
Past Medical History Past Medical History: CHF, Diabetes-Type II, High Cholesterol, Other Additional Past Medical Histor: OSTEOARTHRITIS, SKIN CANCER, NEUROPATHY Past Surgical History: Knee Replacement, Other Additional Past Surgical Histo: BILATERAL KNEE, GASTRIC BI PASS Alcohol Use: Rarely Drug Use: None Adult General Chief Complaint Chief Complaint: LOWER EXTREMITY EDEMA HPI HPI Patient is a 73 year old male who presents with complaining of shortness of breath. Patient had history of CHF with upper and lower extremity and abdominal wall edema with chronic shortness of breath that gradually getting worse. Patient woke up because of shortness of breath and unable to be that improved with sitting up position. Patient seen by his account representative today and had echocardiogram that showed large left pleural effusion and sent to ER for evaluation and treatment. Patient denies fever and chest pain and complaining of chronic chills. Review of Systems Review of Systems Constitutional: Denies fever or chills [] Eyes: Denies change in visual acuity, redness, or eye pain [] HENT: Denies nasal congestion or sore throat [] Respiratory: Cough and shortness of breath[] Cardiovascular: No additional information not addressed in HPI [] GI: Denies abdominal pain, nausea, vomiting, bloody stools or diarrhea [] : Denies dysuria or hematuria [] Musculoskeletal: Denies back pain or joint pain [] Integument: Denies rash or skin lesions [] Neurologic: Denies headache, focal weakness or sensory changes [] Endocrine: Denies polyuria or polydipsia [] All other systems were reviewed and found to be within normal limits, except as documented in this note. Allergies Allergies Allergies Coded Allergies Type Severity Reaction Last Updated Verified No Known Drug Allergies 11/23/16 No Physical Exam Physical Exam Constitutional: Well developed, mild distress, non-toxic appearance. [] HENT: Normocephalic, atraumatic Eyes: PERRLA, EOMI, conjunctiva normal, no discharge. [] Neck: Normal range of motion, no tenderness, supple, no stridor. [] Cardiovascular:Heart rate regular rhythm, no murmur [] Lungs & Thorax: Decrease of left breath sound up to middle of lung Abdomen: Bowel sounds normal, soft, no tenderness, no masses, no pulsatile masses, abdominal folds 2+ edema. [] Skin: Warm, dry, no erythema, no rash. [] Back: No tenderness, no CVA tenderness. [] Extremities: No tenderness, no cyanosis, no clubbing, ROM intact, upper and lower extremity edema, 4+ lower extremity edema with leaking seroma Neurologic: Alert and oriented X 3, normal motor function, normal sensory function, no focal deficits noted. [] Psychologic: Affect normal, judgement normal, mood normal. [] EKG EKG EKG interpreted by me. EKG at 1518 showed sinus bradycardia at 51, PACs, left chen axis, low voltage QRS, normal GA interval, prolonged QT, poor R-wave progress in anteroseptal leads, no acute ST and T-wave abnormalities Radiology/Procedures Radiology/Procedures [][facility] [address] [place] [address] IMAGING REPORT Signed PATIENT: VERONICA BONILLA ACCOUNT: [id number] : 1945 LOCATION: ER AGE: 73 SEX: M EXAM STATUS: REG ER ORD. PHYSICIAN: DERRELL NUNES MD REASON: pleural effusion, SOA PROCEDURE: PORTABLE CHEST 1V Chest radiograph 11/27/2018 2:40 PM INDICATION: Pleural effusion COMPARISON: October 05, 2018 TECHNIQUE: Portable upright frontal view of the chest is provided. FINDINGS: The cardiomediastinal silhouette is within normal limits. Increase in moderate left pleural effusion with adjacent compressive atelectasis versus infiltrate. There is suggestion of a pleural line identified along the left lateral lung however pulmonary markings are seen beyond this and findings most favor Mach effect from overlapping soft tissue. No pulmonary vascular congestion. Right lung is clear. IMPRESSION: Increase in moderate-sized left pleural effusion with adjacent compressive atelectasis versus infiltrate. There is suggestion of a pleural line identified along the left lateral lung however pulmonary markings are seen beyond this and findings most favor Mach effect from overlapping soft tissue. Electronically signed by: Danna Burch MD (11/27/2018 2:50 PM) [facility] DICTATED and SIGNED BY: DANNA BURCH MD DATE: 11/27/18 7303 Course & Med Decision Making Course & Med Decision Making Pertinent Labs and Imaging studies reviewed. (See chart for details) Evaluation of patient in ER showed 73-year-old male patient with history of stiff heart failure sent from cardiology office because of pleural effusion. Patient had a large sized left pleural effusion. Patient had O2 sat of 92% at room air that improved with sitting up on oxygen. Plan to consult account representative and scroll assembler.Patient requiring admission for further evaluation and treatment. Discussed with Dr. Pastrana who is in agreement with admission. Discussed findings and plan with patient and family, who acknowledge understanding and agreement. Dragon Disclaimer Dragon Disclaimer This electronic medical record was generated, in whole or in part, using a voice recognition dictation system. Departure Departure Impression: Primary Impression: Pleural effusion, left Additional Impressions: CHF (congestive heart failure) Hypoalbuminemia Anasarca Disposition: ADMITTED INPATIENT (at 1501) Admitting Physician: Vandana Pastrana (accepted admission at 1500) Condition: IMPROVED Referrals: VANDANA PASTRANA MD (PCP) Problem Qualifiers Additional Impressions: CHF (congestive heart failure) Heart failure type: unspecified Heart failure chronicity: unspecified Qu alified Codes: I50.9 - Heart failure, unspecified DERRELL NUNES MD November 27, 2018 15:41
[2018-11-27 16:39] VITALS: BP 108/74
--- NOTE | 2018-11-27 17:12 | PDOC ---
PULMONARY PROGRESS NOTES Vitals Vital Signs Date Time Temp Pulse Resp B/P (MAP) Pulse Ox O2 Delivery O2 Flow Rate FiO2 11/27/18 16:39 97.7 91 16 108/74 (85) 94 Room Air 97.7 Labs Laboratory Tests Test 11/27/18 14:50 White Blood Count 5.0 x10^3/uL (4.0-11.0) Red Blood Count 4.74 x10^6/uL (4.30-5.70) Hemoglobin 15.3 g/dL (13.0-17.5) Hematocrit 45.9 % (39.0-53.0) Mean Corpuscular Volume 97 fL (79-100) Mean Corpuscular Hemoglobin 32 pg (25-35) Mean Corpuscular Hemoglobin Concent 33 g/dL (31-37) Red Cell Distribution Width 15.4 % (11.5-14.5) Platelet Count 212 x10^3/uL (140-400) Neutrophils (%) (Auto) 80 % (31-73) Lymphocytes (%) (Auto) 7 % (24-48) Monocytes (%) (Auto) 11 % (0-9) Eosinophils (%) (Auto) 1 % (0-3) Basophils (%) (Auto) 1 % (0-3) Neutrophils # (Auto) 4.0 x10^3uL (1.8-7.7) Lymphocytes # (Auto) 0.3 x10^3/uL (1.0-4.8) Monocytes # (Auto) 0.6 x10^3/uL (0.0-1.1) Eosinophils # (Auto) 0.1 x10^3/uL (0.0-0.7) Basophils # (Auto) 0.0 x10^3/uL (0.0-0.2) Sodium Level 141 mmol/L (136-145) Potassium Level 4.0 mmol/L (3.5-5.1) Chloride Level 109 mmol/L (98-107) Carbon Dioxide Level 27 mmol/L (21-32) Anion Gap 5 (6-14) Blood Urea Nitrogen 28 mg/dL (8-26) Creatinine 1.1 mg/dL (0.7-1.3) Estimated GFR (Cockcroft-Gault) 65.8 BUN/Creatinine Ratio 25 (6-20) Glucose Level 164 mg/dL (70-99) Calcium Level 8.5 mg/dL (8.5-10.1) Total Bilirubin 0.7 mg/dL (0.2-1.0) Aspartate Amino Transf (AST/SGOT) 62 U/L (15-37) Alanine Aminotransferase (ALT/SGPT) 58 U/L (16-63) Alkaline Phosphatase 143 U/L (46-116) Creatine Kinase 180 U/L (39-308) Troponin I Quantitative < 0.017 ng/mL (0.000-0.055) PP-Lua-O-Type Natriuretic Peptide 970 pg/mL (0-124) Total Protein 6.1 g/dL (6.4-8.2) Albumin 2.4 g/dL (3.4-5.0) Albumin/Globulin Ratio 0.6 (1.0-1.7) Laboratory Tests Test 11/27/18 14:50 White Blood Count 5.0 x10^3/uL (4.0-11.0) Red Blood Count 4.74 x10^6/uL (4.30-5.70) Hemoglobin 15.3 g/dL (13.0-17.5) Hematocrit 45.9 % (39.0-53.0) Mean Corpuscular Volume 97 fL (79-100) Mean Corpuscular Hemoglobin 32 pg (25-35) Mean Corpuscular Hemoglobin Concent 33 g/dL (31-37) Red Cell Distribution Width 15.4 % (11.5-14.5) Platelet Count 212 x10^3/uL (140-400) Neutrophils (%) (Auto) 80 % (31-73) Lymphocytes (%) (Auto) 7 % (24-48) Monocytes (%) (Auto) 11 % (0-9) Eosinophils (%) (Auto) 1 % (0-3) Basophils (%) (Auto) 1 % (0-3) Neutrophils # (Auto) 4.0 x10^3uL (1.8-7.7) Lymphocytes # (Auto) 0.3 x10^3/uL (1.0-4.8) Monocytes # (Auto) 0.6 x10^3/uL (0.0-1.1) Eosinophils # (Auto) 0.1 x10^3/uL (0.0-0.7) Basophils # (Auto) 0.0 x10^3/uL (0.0-0.2) Sodium Level 141 mmol/L (136-145) Potassium Level 4.0 mmol/L (3.5-5.1) Chloride Level 109 mmol/L (98-107) Carbon Dioxide Level 27 mmol/L (21-32) Anion Gap 5 (6-14) Blood Urea Nitrogen 28 mg/dL (8-26) Creatinine 1.1 mg/dL (0.7-1.3) Estimated GFR (Cockcroft-Gault) 65.8 BUN/Creatinine Ratio 25 (6-20) Glucose Level 164 mg/dL (70-99) Calcium Level 8.5 mg/dL (8.5-10.1) Total Bilirubin 0.7 mg/dL (0.2-1.0) Aspartate Amino Transf (AST/SGOT) 62 U/L (15-37) Alanine Aminotransferase (ALT/SGPT) 58 U/L (16-63) Alkaline Phosphatase 143 U/L (46-116) Creatine Kinase 180 U/L (39-308) Troponin I Quantitative < 0.017 ng/mL (0.000-0.055) WU-Hop-Z-Type Natriuretic Peptide 970 pg/mL (0-124) Total Protein 6.1 g/dL (6.4-8.2) Albumin 2.4 g/dL (3.4-5.0) Albumin/Globulin Ratio 0.6 (1.0-1.7) Medications Active Scripts Medications Dose Route/Sig Max Daily Dose Days Date Category Nystop (Nystatin) 60 Gm Powder 60 Gm TP BID 10/09/18 Reported Carvedilol (Carvedilol) 12.5 Mg Tablet 12.5 Mg PO BIDWMEALS 09/28/18 Reported Protonix (Pantoprazole Sodium) 20 Mg Tablet.dr 2 Tab PO DAILY 09/28/18 Reported Furosemide 40 Mg Tablet 1 Tab PO DAILY 09/28/18 Reported Klor-Con M10 (Potassium Chloride) 10 Meq Tab.er.prt 1 Tab PO BID 09/28/18 Reported Lantus Solostar (Insulin Glargine,Hum.rec.anlog) 100 Unit/1 Ml Insuln.pen 24 Unit SQ QHS 09/28/18 Reported Atorvastatin Calcium 40 Mg Tablet 1 Tab PO QHS 01/25/17 Reported Impression . NOTE DICTATED THORACENTESIS BY IR CT CHEST THANKS LAKSHMI CHAUDHARY MD November 27, 2018 17:12
[2018-11-27] MEDS ORDERED: INSU100V8 SQ (19:37)
[2018-11-27] MEDS ORDERED: FLUO20CA8 PO (19:37)
[2018-11-27] MEDS ORDERED: TAMS0.4C97 PO (19:37)
[2018-11-27] MEDS ORDERED: CARV25TA2 PO (19:37)
[2018-11-27 20:48] VITALS: BP 100/68
[2018-11-27 23:31] VITALS: BP 110/65
[2018-11-28] VITALS (8 sets, daily range): BP systolic 97–128; BP diastolic 60–85
--- NOTE | 2018-11-28 02:13 | CONS ---
DATE OF CONSULTATION: 11/27/2018 ATTENDING PHYSICIAN: Terry Pastrana M.D. CONSULTING PHYSICIAN: Lakshmi Chaudhary M.D. REASON FOR CONSULTATION: The patient seen in pulmonary consultation at the request of Dr. Pastrana for abnormal x-ray. HISTORY OF PRESENT ILLNESS: The patient is a 73-year-old that presented with increasing shortness of breath. He is being followed at the [facility] for a left arm cellulitis, chronic lymphedema. He became more short of breath. He has some questionable chills and no documented fever. He had an echocardiogram, which revealed a large left effusion. As a consequence, he was referred to the hospital. The patient normally does not wear oxygen. He quit tobacco in 2007. He had previous polysomnogram, but never treated with CPAP. He has had bariatric surgery and has lost a great deal of weight. He denies fever, chills, productive cough. No hemoptysis. No prior history of DVT, pulmonary embolism. He has never had a thoracentesis. Chest x-ray revealed a large effusion on the left. I was asked to see him in consultation. PAST MEDICAL HISTORY: Chronic diastolic right-sided heart failure, type 2 diabetes, obesity, status post bariatric surgery, hyperlipidemia, osteoarthritis, previous skin cancer. PAST SURGICAL HISTORY: Status post bariatric surgery, bilateral knee replacement. ALLERGIES: No known drug allergies. HOME MEDICATIONS: List was reviewed. REVIEW OF SYSTEMS: CONSTITUTIONAL: No subjective fever. EYES: No change in visual acuity. HEENT: No nasal congestion or sore throat. RESPIRATORY: As indicated above. CARDIOVASCULAR: No chest pain, no pressure. GASTROINTESTINAL: No nausea, vomiting, diarrhea. GENITOURINARY: No dysuria or frequency. MUSCULOSKELETAL: Chronic pain. No localized muscle aches or joint pain. SKIN: Chronic lymphedema in upper and lower extremities with some chronic cellulitis. NEUROLOGIC: No headaches, diplopia or blurred vision. CURRENT MEDICATION: List was reviewed. PHYSICAL EXAMINATION: GENERAL: The patient appeared to be older than stated age. He was requiring no oxygen supplementation. HEENT: Eyes, the sclerae were nonicteric. NECK: Jugular venous distention could not be assessed secondary to body habitus. CHEST: Full expansion. LUNGS: Diminished breath sounds in the left. No wheezes. CARDIOVASCULAR: Regular rate and rhythm with S1, S2, no S3. ABDOMEN: Soft, nontender, nondistended. EXTREMITIES: Chronic edema, chronic cellulitis. There is dressing in place in the upper extremities. NEUROLOGIC: The patient was awake, alert, following commands. A detailed neuro exam was not performed. LABORATORY DATA: White count was normal, hemoglobin and hematocrit were noted. BUN and creatinine were noted. BUN was elevated. Creatinine was 1.1. Albumin was 2.4. BNP was elevated. Troponin was not elevated. Chest x-ray as indicated above. IMPRESSION: 1. Progressive dyspnea, multifactorial. 2. Acute on chronic diastolic and systolic heart failure. 3. Acute cor pulmonale. 4. Status post bariatric surgery. 5. Obesity. 6. Chronic lymphedema. 7. Abnormal x-ray. 8. Chronic obstructive pulmonary disease, unknown FEV1. 9. Tobacco dependence, in remission. PLAN: 1. CT chest with no contrast. 2. Thoracentesis. 3. Diurese per Cardiology. 4. Continue home medications. 5. Follow wound care recommendations. 6. We will make further recommendation depending on the pleural fluid analysis. I do appreciate the privilege in sharing the patient to take care. LAKSHMI CHAUDHARY MD DR: TIFFANY/starla JOB#: [id number] / [id number]
--- NOTE | 2018-11-28 07:12 | EKG ---
[facility] [address] [place] [address] Test Date: 2018-11-27 Test Time: 15:18:03 Pat Name: VERONICA BONILLA Department: Room: [facility] 1 Gender: M Contact Center Agent: : [id number] Requested By: DERRELL NUNES Order Number: [id number] Reading MD: Jim Escalona MD Measurements Intervals [place] Rate: 50 P: 19 MI: 134 QRS: -22 QRSD: 64 T: 48 QT: 604 QTc: 554 Interpretive Statements SINUS RHYTHM ATRIAL PREMATURE COMPLEX(ES) ATRIAL ESCAPE COMPLEX(ES) LEFTWARD AXIS LOW VOLTAGE QRS(T) CONTOUR ABNORMALITY CONSISTENT WITH INFERIOR INFARCT PROBABLY OLD ABNORMAL ECG Electronically Signed On 12-24-2018 9:23:52 CDT by Jim Escalona MD
--- NOTE | 2018-11-28 08:52 | PDOC ---
Provider Note Provider Note [id number] VANDANA FROST MD November 28, 2018 08:51
[2018-11-28] MEDS ORDERED: CARVEDILOL 12.5 MG PO SCH (09:00)
[2018-11-28 09:07] LABS: PROTHROMBIN TIME PATIENT 14.6 SEC (11.7-14.0)
--- NOTE | 2018-11-28 09:10 | PDOC ---
Provider Note Provider Note low albumin but last urine no protein, ? occult liver disease/ascites/ effusion could be transdiaphragmatic so ct abdomen as well as chest- LFTs only mildly up VANDANA FROST MD November 28, 2018 09:10
--- NOTE | 2018-11-28 09:14 | PDOC ---
PULMONARY PROGRESS NOTES Subjective PT LESS SOA AFTER THORACENTESIS Vitals Vital Signs Date Time Temp Pulse Resp B/P (MAP) Pulse Ox O2 Delivery O2 Flow Rate FiO2 11/28/18 07:35 Room Air 11/28/18 07:00 97.4 90 16 123/85 (98) 93 97.4 ROS: No Nausea, No Chest Pain, No Abdominal Pain, No Increase Cough General: Alert Lungs: Clear Cardiovascular: S1, S2 Abdomen: Soft Neuro Exam: Alert Extremities: No Edema Skin: Warm Labs Laboratory Tests Test 11/27/18 14:50 11/27/18 20:57 11/28/18 07:30 11/28/18 08:30 White Blood Count 5.0 x10^3/uL (4.0-11.0) Red Blood Count 4.74 x10^6/uL (4.30-5.70) Hemoglobin 15.3 g/dL (13.0-17.5) Hematocrit 45.9 % (39.0-53.0) Mean Corpuscular Volume 97 fL (79-100) Mean Corpuscular Hemoglobin 32 pg (25-35) Mean Corpuscular Hemoglobin Concent 33 g/dL (31-37) Red Cell Distribution Width 15.4 % (11.5-14.5) Platelet Count 212 x10^3/uL (140-400) Neutrophils (%) (Auto) 80 % (31-73) Lymphocytes (%) (Auto) 7 % (24-48) Monocytes (%) (Auto) 11 % (0-9) Eosinophils (%) (Auto) 1 % (0-3) Basophils (%) (Auto) 1 % (0-3) Neutrophils # (Auto) 4.0 x10^3uL (1.8-7.7) Lymphocytes # (Auto) 0.3 x10^3/uL (1.0-4.8) Monocytes # (Auto) 0.6 x10^3/uL (0.0-1.1) Eosinophils # (Auto) 0.1 x10^3/uL (0.0-0.7) Basophils # (Auto) 0.0 x10^3/uL (0.0-0.2) Sodium Level 141 mmol/L (136-145) Potassium Level 4.0 mmol/L (3.5-5.1) Chloride Level 109 mmol/L (98-107) Carbon Dioxide Level 27 mmol/L (21-32) Anion Gap 5 (6-14) Blood Urea Nitrogen 28 mg/dL (8-26) Creatinine 1.1 mg/dL (0.7-1.3) Estimated GFR (Cockcroft-Gault) 65.8 BUN/Creatinine Ratio 25 (6-20) Glucose Level 164 mg/dL (70-99) Calcium Level 8.5 mg/dL (8.5-10.1) Total Bilirubin 0.7 mg/dL (0.2-1.0) Aspartate Amino Transf (AST/SGOT) 62 U/L (15-37) Alanine Aminotransferase (ALT/SGPT) 58 U/L (16-63) Alkaline Phosphatase 143 U/L (46-116) Creatine Kinase 180 U/L (39-308) Troponin I Quantitative < 0.017 ng/mL (0.000-0.055) ZF-Emb-C-Type Natriuretic Peptide 970 pg/mL (0-124) Total Protein 6.1 g/dL (6.4-8.2) Albumin 2.4 g/dL (3.4-5.0) Albumin/Globulin Ratio 0.6 (1.0-1.7) Glucose (Fingerstick) 185 mg/dL (70-99) 140 mg/dL (70-99) Prothrombin Time 14.6 SEC (11.7-14.0) Prothromb Time International Ratio 1.2 (0.8-1.1) Laboratory Tests Test 11/27/18 14:50 11/27/18 20:57 11/28/18 07:30 11/28/18 08:30 White Blood Count 5.0 x10^3/uL (4.0-11.0) Red Blood Count 4.74 x10^6/uL (4.30-5.70) Hemoglobin 15.3 g/dL (13.0-17.5) Hematocrit 45.9 % (39.0-53.0) Mean Corpuscular Volume 97 fL (79-100) Mean Corpuscular Hemoglobin 32 pg (25-35) Mean Corpuscular Hemoglobin Concent 33 g/dL (31-37) Red Cell Distribution Width 15.4 % (11.5-14.5) Platelet Count 212 x10^3/uL (140-400) Neutrophils (%) (Auto) 80 % (31-73) Lymphocytes (%) (Auto) 7 % (24-48) Monocytes (%) (Auto) 11 % (0-9) Eosinophils (%) (Auto) 1 % (0-3) Basophils (%) (Auto) 1 % (0-3) Neutrophils # (Auto) 4.0 x10^3uL (1.8-7.7) Lymphocytes # (Auto) 0.3 x10^3/uL (1.0-4.8) Monocytes # (Auto) 0.6 x10^3/uL (0.0-1.1) Eosinophils # (Auto) 0.1 x10^3/uL (0.0-0.7) Basophils # (Auto) 0.0 x10^3/uL (0.0-0.2) Sodium Level 141 mmol/L (136-145) Potassium Level 4.0 mmol/L (3.5-5.1) Chloride Level 109 mmol/L (98-107) Carbon Dioxide Level 27 mmol/L (21-32) Anion Gap 5 (6-14) Blood Urea Nitrogen 28 mg/dL (8-26) Creatinine 1.1 mg/dL (0.7-1.3) Estimated GFR (Cockcroft-Gault) 65.8 BUN/Creatinine Ratio 25 (6-20) Glucose Level 164 mg/dL (70-99) Calcium Level 8.5 mg/dL (8.5-10.1) Total Bilirubin 0.7 mg/dL (0.2-1.0) Aspartate Amino Transf (AST/SGOT) 62 U/L (15-37) Alanine Aminotransferase (ALT/SGPT) 58 U/L (16-63) Alkaline Phosphatase 143 U/L (46-116) Creatine Kinase 180 U/L (39-308) Troponin I Quantitative < 0.017 ng/mL (0.000-0.055) ZS-Ksn-H-Type Natriuretic Peptide 970 pg/mL (0-124) Total Protein 6.1 g/dL (6.4-8.2) Albumin 2.4 g/dL (3.4-5.0) Albumin/Globulin Ratio 0.6 (1.0-1.7) Glucose (Fingerstick) 185 mg/dL (70-99) 140 mg/dL (70-99) Prothrombin Time 14.6 SEC (11.7-14.0) Prothromb Time International Ratio 1.2 (0.8-1.1) Medications Active Scripts Medications Dose Route/Sig Max Daily Dose Days Date Category Nystop (Nystatin) 60 Gm Powder 60 Gm TP BID 10/09/18 Reported Carvedilol (Carvedilol) 12.5 Mg Tablet 12.5 Mg PO BIDWMEALS 09/28/18 Reported Protonix (Pantoprazole Sodium) 20 Mg Tablet.dr 2 Tab PO DAILY 09/28/18 Reported Furosemide 40 Mg Tablet 1 Tab PO DAILY 09/28/18 Reported Klor-Con M10 (Potassium Chloride) 10 Meq Tab.er.prt 1 Tab PO BID 09/28/18 Reported Lantus Solostar (Insulin Glargine,Hum.rec.anlog) 100 Unit/1 Ml Insuln.pen 24 Unit SQ QHS 09/28/18 Reported Atorvastatin Calcium 40 Mg Tablet 1 Tab PO QHS 01/25/17 Reported Impression . IMPRESSION: 1. Progressive dyspnea, multifactorial. 2. Acute on chronic diastolic and systolic heart failure. 3. Acute cor pulmonale. 4. Status post bariatric surgery. 5. Obesity. 6. Chronic lymphedema. 7. Abnormal x-ray. 8. Chronic obstructive pulmonary disease, unknown FEV1. 9. Tobacco dependence, in remission. Plan . CT REVIEWED THORACENTESIS DONE REMOVE 1.6 LITERS FEELS BETTER LAKSHMI CHAUDHARY MD November 28, 2018 09:14
[2018-11-28] MEDS ORDERED: IOHEXOL 300 MG/ML 100ML VIAL. IV ONE (09:30)
[2018-11-28] MEDS ORDERED: CONTRAST GIVEN. MC PRN (09:45)
[2018-11-28] MEDS: PANTOPRAZOLE 40 MG TABLET.DR. PO SCH (09:49)
[2018-11-28] MEDS: TAMSULOSIN 0.4 MG CAP.ER.24H. PO SCH (09:49)
[2018-11-28] MEDS: POTASSIUM CHLORIDE 10 MEQ TABLET.ER. PO SCH ×2 (09:49→21:01)
[2018-11-28] MEDS: FUROSEMIDE 40 MG/4 ML VIAL. IVP SCH ×4 (09:49→18:18)
[2018-11-28] MEDS: SPIRONOLACTONE 25 MG TABLET PO SCH (09:50)
[2018-11-28] MEDS: FLUoxetine HCL 10 MG CAPSULE PO SCH (09:50)
[2018-11-28] MEDS: CARVEDILOL 12.5 MG TABLET. PO SCH ×2 (09:52→15:49)
[2018-11-28] MEDS: NYSTATIN TOPICAL POWDER 15GM BOTTLE. TP SCH ×2 (10:00→21:01)
[2018-11-28] MEDS ORDERED: FLUoxetine HCL 20 MG CAPSULE PO SCH (10:00)
[2018-11-28] MEDS ORDERED: FUROSEMIDE 40 MG TABLET. PO SCH (10:00)
--- NOTE | 2018-11-28 10:50 | NUR ---
SW following pt for anticipated dc needs. Chart reviewed and discussed with RN. Pt lives at home with spouse. No discharge recommendations/SW needs noted at this time. Will continue to assess needs.
--- NOTE | 2018-11-28 10:52 | RAD ---
CT of the chest without contrast, 11/28/2018: HISTORY: Pleural effusion, congestive heart failure Noncontrast scans were obtained as requested. Comparison is made to a study from 01/26/2017. There is moderate calcific plaquing of the thoracic aorta. The ascending aorta is at the upper limits of normal in size measuring 4 cm in width. There are mild scattered coronary artery calcifications. A large pericardial effusion evident on the previous study has resolved. There is mild residual pericardial thickening. Calcified mediastinal and right hilar lymph nodes are present compatible with old granulomatous disease. There is now a large left pleural effusion with complete atelectasis of the left lower lobe and partial atelectasis of the left upper lobe. There is a moderate size right pleural effusion with moderate partial atelectasis of the right lower lobe. The aerated portions of both lungs show no interlobular septal thickening. There is a 4 mm noncalcified pulmonary nodule in the right middle lobe. This was present on the 01/26/2017 study and may have decreased slightly in size in the interval. This suggests a benign etiology. IMPRESSION: 1. Large left pleural effusion with underlying left lower lobe atelectasis and partial left upper lobe atelectasis. 2. Moderate sized right pleural effusion with partial right lower lobe atelectasis. 3. Stable small right middle lobe pulmonary nodule. 4. Calcific plaquing the aorta and coronary arteries. CT of the abdomen and pelvis with contrast, 11/28/2018: Multidetector CT imaging was performed following an IV bolus injection of IV contrast. No oral contrast material was administered for this study as requested. No hepatic mass or bile duct dilatation is seen. The gallbladder and pancreas are unremarkable. The spleen is of normal size. No renal mass or hydronephrosis is evident. There is moderate aortoiliac calcific plaquing without evidence of aneurysm. No abdominal or pelvic adenopathy is seen. There is moderate amount gas and stool scattered throughout the colon. There is no evidence of obstruction. There are multiple surgical sutures related to the stomach. No free air is present in the abdomen. There is mild streaky edema throughout the mesentery. A small amount of free fluid is present in the abdomen and pelvis. There is extensive streaky edema and fluid collections in the subcutaneous soft tissues, greatest in the flank and gluteal regions as well as in the patient's lower abdominal pannus. The appearance is that of anasarca. Moderate multilevel degenerative changes are present in the lumbar spine. 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 IMPRESSION: 1. Mesenteric edema with a small volume of ascites. 2. Anasarca. PQRS Compliance Statement: One or more of the following individualized dose reduction techniques were utilized for this examination: 1. Automated exposure control 2. Adjustment of the mA and/or kV according to patient size 3. Use of iterative reconstruction technique Electronically signed by: Bill Reid MD (11/28/2018 10:49 AM) [facility]
--- NOTE | 2018-11-28 10:57 | HP ---
ADMIT DATE: 11/28/2018 CHIEF COMPLAINT: Left pleural effusion. HISTORY OF PRESENT ILLNESS: A 73-year-old white male, known mild diabetic, status post gastric bypass surgery, who has had problems with edema recently and was seen recently by Dr. Escalona. Echocardiogram showed good ejection fraction, but revealed a large left pleural effusion of unknown etiology and he is admitted for further evaluation. He has no complaints of hemoptysis, fever or chills, notable weight loss or overt chest pain. PAST MEDICAL HISTORY: Past history well documented in the old records. MEDICATIONS: Listed per the chart. He is on minimal amounts of insulin now per his continuity manager at . SOCIAL HISTORY: . Nonsmoker, nondrinker. Not physically active. FAMILY HISTORY: Unremarkable. REVIEW OF SYSTEMS: No other problems. PHYSICAL EXAMINATION: ENT: All within normal limits. NECK: No masses, nodes or thyroid enlargement. LUNGS: Decreased breath sounds in the entire left chest. Dullness to percussion is noted. CARDIOVASCULAR: Regular rate. No irregular beat or murmur or S3. ABDOMEN: Obese, benign. EXTREMITIES: With 1-2+ pretibial edema. No active joint or skin lesions or neurologic findings. GENITOURINARY: Deferred. RECTAL: Deferred. ASSESSMENT: Left pleural effusion, etiology is unclear at this time. It does not appear to be cardiogenic in nature. It certainly raised the possibility of underlying malignancy or less likely infection or other etiologies. PLAN: Per thoracentesis. VANDANA FROST MD DR: ROSA M/starla JOB#: [id number] / [id number]
--- NOTE | 2018-11-28 11:21 | PDOC2 ---
CARDIAC CONSULT DATE OF CONSULT Date of Consult DATE: 11/28/18 TIME: 11:08 REASON FOR CONSULT Reason for Consult: CHF REFERRING PHYSICIAN Referring Physician: Dr. Muhammad SOURCE Source: Chart review, Patient HISTORY OF PRESENT ILLNESS HISTORY OF PRESENT ILLNESS This is a 73 yo male who presented secondary to shortness of breath. Patient was seen in our office yesterday by Jr due to significant LE edema. Was sent for echocardiogram, which was notable for large left pleural effusion. Patient was referred to the ED for further evaluation and treatment. Patient chronic LE edema for the year. Over the last couple of months, has retained fluid in his abdomen and upper extremities. LE seem to be more edematous recently as well. Developed progressive shortness of breath. Denies any chest pain, palpitations, dizziness, diaphoresis, or nausea/vomiting. No previous h/o liver disease. Underwent left sided thoracentesis this morning and is now less short of breath. PAST MEDICAL HISTORY Past Medical History Cardiovascular: CAD (nonobstructive ), CHF (diastolic), HTN, Hyperlipidemia, chronic lymphedema Pulmonary: Other (CLINT, COPD) GI: GERD Heme/Onc: No pertinent hx, Other (Gorlin syndrome ) Hepatobiliary: No pertinent hx Psych: No pertinent hx Musculoskeletal: Osteoarthritis Rheumatologic: No pertinent hx Infectious disease: No pertinent hx ENT: No pertinent hx Renal/: Chronic renal insuff Endocrine: Diabetes Dermatology: No pertinent hx PAST SURGICAL HISTORY Past Surgical History Total knee replacement (bilateral ), gastric bypass surgery FAMILY HISTORY Family History Coronary Artery Disease, Hypertension, Other (Gorlin syndrome ) SOCIAL HISTORY Social History Smoke: No ALCOHOL: none Drugs: None Lives: with Family CURRENT MEDICATIONS CURRENT MEDICATIONS Current Medications Medications (Trade) Dose Ordered Sig/Meghana Route PRN Reason Start Time Stop Time Status Last Admin Dose Admin Carvedilol (Coreg) 12.5 mg BIDWMEALS PO 11/28/18 10:00 11/28/18 09:52 Potassium Chloride (Klor-Con) 10 meq BID PO 11/28/18 10:00 11/28/18 09:49 Tamsulosin HCl (Flomax) 0.4 mg DAILY PO 11/28/18 10:00 11/28/18 09:49 Pantoprazole Sodium (Protonix) 40 mg DAILYAC PO 11/28/18 10:00 11/28/18 09:49 Fluoxetine HCl (PROzac) 10 mg DAILY PO 11/28/18 10:00 11/28/18 09:50 Furosemide (Lasix) 40 mg BID92 IVP 11/28/18 10:00 11/28/18 09:49 Spironolactone (Aldactone) 50 mg DAILY PO 11/28/18 10:00 11/28/18 09:50 Iohexol (Omnipaque 300 Mg/ml) 75 ml 1X ONCE IV 11/28/18 09:30 11/28/18 09:31 DC 11/28/18 10:00 ALLERGIES ALLERGIES: Coded Allergies: No Known Drug Allergies (Unverified , 11/23/16) ROS Review of System 14 point ROS conducted with pertinent positives noted above in HPI. PHYSICAL EXAM General: Alert, Oriented X3, Cooperative, No acute distress HEENT: Atraumatic, Mucous membr. moist/pink Lungs: Other (diminished bases) Heart: Regular rate, Normal S1, Normal S2, No murmurs Abdomen: Other (anasarca) Extremities: Normal pulses, Other (2+ bilateral LE pitting edema to thigh level ) Skin: Other (Weaping wound to bilateral LE with intact dressings) Neuro: Normal speech, Sensation intact Psych/Mental Status: Mental status NL, Mood NL MUSCULOSKELETAL: Osteoarthritic changes both hands VITALS VITALS Vital Signs Date Time Temp Pulse Resp B/P (MAP) Pulse Ox O2 Delivery O2 Flow Rate FiO2 11/28/18 10:35 95 14 105/70 (82) 93 Room Air 11/28/18 07:00 97.4 97.4 LABS Lab: Laboratory Tests Test 11/27/18 14:50 11/27/18 20:57 11/28/18 07:30 11/28/18 08:30 White Blood Count 5.0 x10^3/uL (4.0-11.0) Red Blood Count 4.74 x10^6/uL (4.30-5.70) Hemoglobin 15.3 g/dL (13.0-17.5) Hematocrit 45.9 % (39.0-53.0) Mean Corpuscular Volume 97 fL (79-100) Mean Corpuscular Hemoglobin 32 pg (25-35) Mean Corpuscular Hemoglobin Concent 33 g/dL (31-37) Red Cell Distribution Width 15.4 % (11.5-14.5) Platelet Count 212 x10^3/uL (140-400) Neutrophils (%) (Auto) 80 % (31-73) Lymphocytes (%) (Auto) 7 % (24-48) Monocytes (%) (Auto) 11 % (0-9) Eosinophils (%) (Auto) 1 % (0-3) Basophils (%) (Auto) 1 % (0-3) Neutrophils # (Auto) 4.0 x10^3uL (1.8-7.7) Lymphocytes # (Auto) 0.3 x10^3/uL (1.0-4.8) Monocytes # (Auto) 0.6 x10^3/uL (0.0-1.1) Eosinophils # (Auto) 0.1 x10^3/uL (0.0-0.7) Basophils # (Auto) 0.0 x10^3/uL (0.0-0.2) Sodium Level 141 mmol/L (136-145) Potassium Level 4.0 mmol/L (3.5-5.1) Chloride Level 109 mmol/L (98-107) Carbon Dioxide Level 27 mmol/L (21-32) Anion Gap 5 (6-14) Blood Urea Nitrogen 28 mg/dL (8-26) Creatinine 1.1 mg/dL (0.7-1.3) Estimated GFR (Cockcroft-Gault) 65.8 BUN/Creatinine Ratio 25 (6-20) Glucose Level 164 mg/dL (70-99) Calcium Level 8.5 mg/dL (8.5-10.1) Total Bilirubin 0.7 mg/dL (0.2-1.0) Aspartate Amino Transf (AST/SGOT) 62 U/L (15-37) Alanine Aminotransferase (ALT/SGPT) 58 U/L (16-63) Alkaline Phosphatase 143 U/L (46-116) Creatine Kinase 180 U/L (39-308) Troponin I Quantitative < 0.017 ng/mL (0.000-0.055) VM-Hdv-A-Type Natriuretic Peptide 970 pg/mL (0-124) Total Protein 6.1 g/dL (6.4-8.2) Albumin 2.4 g/dL (3.4-5.0) Albumin/Globulin Ratio 0.6 (1.0-1.7) Glucose (Fingerstick) 185 mg/dL (70-99) 140 mg/dL (70-99) Erythrocyte Sedimentation Rate 13 (0-15) Prothrombin Time 14.6 SEC (11.7-14.0) Prothromb Time International Ratio 1.2 (0.8-1.1) Thyroid Stimulating Hormone (TSH) 6.299 uIU/mL (0.358-3.74) ECHOCARDIOGRAM ECHOCARDIOGRAM <Conclusion> The left ventricular systolic function is normal and the ejection fraction is within normal range. The Ejection Fraction is 55%. There is normal LV segmental wall motion. Doppler and Color Flow revealed trace to mild tricuspid regurgitation. There is mild pulmonary hypertension. The PA pressure was estimated at 39 mmHg. There is very large left pleural effusion. There is no evidence of significant pericardial effusion. DATE: 11/27/18 1508 STRESS TEST STRESS TEST Conclusion 1. No evidence of EKG changes with stress testing. 2. Normal perfusion at stress/rest. 3. Low risk study. 4. EF > 60%. DATE: 01/28/17 1152 ASSESSMENT/PLAN ASSESSMENT/PLAN 1 Dyspnea secondary to large left pleural effusion; improved s/p thoracentesis 2. Mild acute on chronic diastolic HF; BNP mildly elevated, but insignificant based upon age adjustment. Echo with preserved LV systolic function 3. Chronic lymphedema 4. Anasarca; ? liver disease 5. Hypertension; mildly hypotensive following thoracentesis 6. CAD, nonobstructive. MPI 2017 without any evidence of ischemia. CP free. 7. Hyperlipidemia; statin 8. Diabetes, II;as per PCP 10. Hypothyroidism 11. Protein calorie malnutrition Recommendations Diuresis as able. Hold Coreg as warranted to allow for diuresis May need albumin with Lasix Supportive care SABINO CLEMENTE APRN November 28, 2018 11:21
[2018-11-28 11:29] LABS: BILIRUBIN,URINE SMALL (NEG); CLARITY,URINE CLEAR; COLOR,URINE AMBER; NITRITE,URINE NEGATIVE (NEG); PH,URINE 5.5; PROTEIN,URINE 30 mg/dL (NEG-TRACE)
[2018-11-28 11:45] LABS: BACTERIA,URINE FEW /HPF (0-FEW); HYALINE CASTS, URINE FEW /HPF; RBC,URINE RARE /HPF (0-2); SQUAMOUS EPITHELIAL CELL,UR OCC /LPF
--- NOTE | 2018-11-28 12:45 | NUR ---
wound care patient seen per wound care consult. patient familiar to the wound care team. patient is a current patient in the outpatient wound clinic. patient has bilateral lower leg edema, swelling and intact and open blisters that are draining a large amount of fluid. recommendations of Aquacel ag with abd pads, Kerlix and tape, change every other day and prn if saturated. notified ALTON Miller about the POC and wound care will continue to f/u.
--- NOTE | 2018-11-28 12:50 | RAD ---
Ultrasound-guided left sided thoracentesis 11/28/2018 12:46 PM Indication: Pleural effusion with subsequent shortness of breath Procedure: Informed consent was obtained. A timeout procedure was performed. Sonographic evaluation of the left chest was performed demonstrating moderate pleural effusion. The left posterior chest was prepped and draped in sterile fashion. 1% lidocaine without epinephrine was administered for local anesthesia. Real-time ultrasonographic guidance was used in passing a 5 Spanish OberScharrereh catheter into the left pleural space. 1.8 L of serosanguineous pleural fluid was removed. Samples of fluid were sent to the lab for further evaluation per ordering physician request. The catheter was removed and pressure held to achieve hemostasis. A sterile dressing was applied. No immediate complications were identified. The patient tolerated the procedure well. Impression: Left sided ultrasound-guided thoracentesis
--- NOTE | 2018-11-28 19:56 | RAD ---
EXAM: Chest, single view. HISTORY: Thoracentesis. COMPARISON: CT obtained one day prior. FINDINGS: A frontal view of the chest is obtained. There are moderate left and small right pleural effusions. These appear decreased compared to the prior study. There is left lower lobe and lingular collapse or partial consolidation. There is no pneumothorax. The heart is normal in size. IMPRESSION: Moderate left and small right pleural effusions, both which appears decreased compared to the prior CT. No pneumothorax is seen status post thoracentesis. There is suspected lingular and left lower lobe collapse or consolidated infiltrate. Electronically signed by: Catherine Molina MD (11/28/2018 7:54 PM) [facility]
[2018-11-28] MEDS: ATORVASTATIN CALCIUM 40 MG TABLET. PO SCH (21:01)
[2018-11-28] MEDS: INSULIN GLARGINE 300 UNITS/3 ML INSULN.PEN. SQ SCH (21:33)
[2018-11-29 02:51] VITALS: BP 99/67
[2018-11-29 06:55] VITALS: BP 109/69
--- NOTE | 2018-11-29 08:27 | NUR ---
SW following Pt. PT/OT pending. SW will await PT/OT recommendation to assess skilled needs.
--- NOTE | 2018-11-29 09:01 | PDOC ---
PULMONARY PROGRESS NOTES Subjective PT LESS SOA AFTER THORACENTESIS Vitals Vital Signs Date Time Temp Pulse Resp B/P (MAP) Pulse Ox O2 Delivery O2 Flow Rate FiO2 11/29/18 06:55 97.5 62 17 109/69 (82) 93 Nasal Cannula 12.0 97.5 ROS: No Nausea, No Chest Pain, No Abdominal Pain, No Increase Cough General: Alert Lungs: Clear Cardiovascular: S1, S2 Abdomen: Soft Neuro Exam: Alert Extremities: No Edema Skin: Warm Labs Laboratory Tests Test 11/27/18 14:50 11/27/18 20:57 11/28/18 07:30 11/28/18 08:30 White Blood Count 5.0 x10^3/uL (4.0-11.0) Red Blood Count 4.74 x10^6/uL (4.30-5.70) Hemoglobin 15.3 g/dL (13.0-17.5) Hematocrit 45.9 % (39.0-53.0) Mean Corpuscular Volume 97 fL (79-100) Mean Corpuscular Hemoglobin 32 pg (25-35) Mean Corpuscular Hemoglobin Concent 33 g/dL (31-37) Red Cell Distribution Width 15.4 % (11.5-14.5) Platelet Count 212 x10^3/uL (140-400) Neutrophils (%) (Auto) 80 % (31-73) Lymphocytes (%) (Auto) 7 % (24-48) Monocytes (%) (Auto) 11 % (0-9) Eosinophils (%) (Auto) 1 % (0-3) Basophils (%) (Auto) 1 % (0-3) Neutrophils # (Auto) 4.0 x10^3uL (1.8-7.7) Lymphocytes # (Auto) 0.3 x10^3/uL (1.0-4.8) Monocytes # (Auto) 0.6 x10^3/uL (0.0-1.1) Eosinophils # (Auto) 0.1 x10^3/uL (0.0-0.7) Basophils # (Auto) 0.0 x10^3/uL (0.0-0.2) Sodium Level 141 mmol/L (136-145) Potassium Level 4.0 mmol/L (3.5-5.1) Chloride Level 109 mmol/L (98-107) Carbon Dioxide Level 27 mmol/L (21-32) Anion Gap 5 (6-14) Blood Urea Nitrogen 28 mg/dL (8-26) Creatinine 1.1 mg/dL (0.7-1.3) Estimated GFR (Cockcroft-Gault) 65.8 BUN/Creatinine Ratio 25 (6-20) Glucose Level 164 mg/dL (70-99) Calcium Level 8.5 mg/dL (8.5-10.1) Total Bilirubin 0.7 mg/dL (0.2-1.0) Aspartate Amino Transf (AST/SGOT) 62 U/L (15-37) Alanine Aminotransferase (ALT/SGPT) 58 U/L (16-63) Alkaline Phosphatase 143 U/L (46-116) Creatine Kinase 180 U/L (39-308) Troponin I Quantitative < 0.017 ng/mL (0.000-0.055) QD-Kkx-V-Type Natriuretic Peptide 970 pg/mL (0-124) Total Protein 6.1 g/dL (6.4-8.2) Albumin 2.4 g/dL (3.4-5.0) Albumin/Globulin Ratio 0.6 (1.0-1.7) Glucose (Fingerstick) 185 mg/dL (70-99) 140 mg/dL (70-99) Erythrocyte Sedimentation Rate 13 (0-15) Prothrombin Time 14.6 SEC (11.7-14.0) Prothromb Time International Ratio 1.2 (0.8-1.1) Thyroid Stimulating Hormone (TSH) 6.299 uIU/mL (0.358-3.74) Test 11/28/18 10:15 11/28/18 11:08 11/28/18 12:03 11/28/18 16:54 Body Fluid pH 7.56 Urine Collection Type Unknown Urine Color Kady Urine Clarity Clear Urine pH 5.5 Urine Specific [place] >=1.030 Urine Protein 30 mg/dL (NEG-TRACE) Urine Glucose (UA) Negative mg/dL (NEG) Urine Ketones (Stick) Negative mg/dL (NEG) Urine Blood Negative (NEG) Urine Nitrite Negative (NEG) Urine Bilirubin Small (NEG) Urine Urobilinogen Dipstick 1.0 mg/dL (0.2 mg/dL) Urine Leukocyte Esterase Negative (NEG) Urine RBC Rare /HPF (0-2) Urine WBC 1-4 /HPF (0-4) Urine Squamous Epithelial Cells Occ /LPF Urine Bacteria Few /HPF (0-FEW) Urine Hyaline Casts Few /HPF Urine Mucus Marked /LPF Glucose (Fingerstick) 161 mg/dL (70-99) 212 mg/dL (70-99) Test 11/28/18 21:27 11/29/18 07:54 Glucose (Fingerstick) 202 mg/dL (70-99) 161 mg/dL (70-99) Laboratory Tests Test 11/28/18 10:15 11/28/18 11:08 11/28/18 12:03 11/28/18 16:54 Body Fluid pH 7.56 Urine Collection Type Unknown Urine Color Kady Urine Clarity Clear Urine pH 5.5 Urine Specific [place] >=1.030 Urine Protein 30 mg/dL (NEG-TRACE) Urine Glucose (UA) Negative mg/dL (NEG) Urine Ketones (Stick) Negative mg/dL (NEG) Urine Blood Negative (NEG) Urine Nitrite Negative (NEG) Urine Bilirubin Small (NEG) Urine Urobilinogen Dipstick 1.0 mg/dL (0.2 mg/dL) Urine Leukocyte Esterase Negative (NEG) Urine RBC Rare /HPF (0-2) Urine WBC 1-4 /HPF (0-4) Urine Squamous Epithelial Cells Occ /LPF Urine Bacteria Few /HPF (0-FEW) Urine Hyaline Casts Few /HPF Urine Mucus Marked /LPF Glucose (Fingerstick) 161 mg/dL (70-99) 212 mg/dL (70-99) Test 11/28/18 21:27 11/29/18 07:54 Glucose (Fingerstick) 202 mg/dL (70-99) 161 mg/dL (70-99) Medications Active Scripts Medications Dose Route/Sig Max Daily Dose Days Date Category Nystop (Nystatin) 60 Gm Powder 60 Gm TP BID 10/09/18 Reported Carvedilol (Carvedilol) 12.5 Mg Tablet 12.5 Mg PO BIDWMEALS 09/28/18 Reported Protonix (Pantoprazole Sodium) 20 Mg Tablet.dr 2 Tab PO DAILY 09/28/18 Reported Furosemide 40 Mg Tablet 1 Tab PO DAILY 09/28/18 Reported Klor-Con M10 (Potassium Chloride) 10 Meq Tab.er.prt 1 Tab PO BID 09/28/18 Reported Lantus Solostar (Insulin Glargine,Hum.rec.anlog) 100 Unit/1 Ml Insuln.pen 24 Unit SQ QHS 09/28/18 Reported Atorvastatin Calcium 40 Mg Tablet 1 Tab PO QHS 01/25/17 Reported Impression . IMPRESSION: 1. Progressive dyspnea, multifactorial. 2. Acute on chronic diastolic and systolic heart failure. 3. Acute cor pulmonale. 4. Status post bariatric surgery. 5. Obesity. 6. Chronic lymphedema. 7. Abnormal x-ray. 8. Chronic obstructive pulmonary disease, unknown FEV1. 9. Tobacco dependence, in remission. 10 Transudate effusion Plan . 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
--- NOTE | 2018-11-29 09:07 | PDOC ---
Provider Note Provider Note discussed edema, low alb- ct abd clear, no nodes- will do 24 hr urine for protein but doubt renal source - cont diuresis for now, gi consult, NEEEDS TO BE IN HOSPITAL. VANDANA FROST MD November 29, 2018 09:07
--- NOTE | 2018-11-29 09:42 | PDOC ---
CARDIO Progress Notes Date and Time Date of Service 11/29/18 Time of Evaluation 0930 Subjective Subjective: No Chest Pain, No shortness of breath, Other (edema persists) Vitals Vitals Vital Signs Date Time Temp Pulse Resp B/P (MAP) Pulse Ox O2 Delivery O2 Flow Rate FiO2 11/29/18 06:55 97.5 62 17 109/69 (82) 93 Nasal Cannula 12.0 97.5 Weight Weight [ ] Input and Output Intake and Output Intake and Output 11/29/18 07:00 Intake Total 720 ml Output Total 1800 ml Balance -1080 ml Intake Oral 720 ml Output Drainage Total 1800 ml # Voids 6 Laboratory Labs Laboratory Tests Test 11/28/18 10:15 11/28/18 11:08 11/28/18 12:03 11/28/18 16:54 Body Fluid pH 7.56 Urine Collection Type Unknown Urine Color Kady Urine Clarity Clear Urine pH 5.5 Urine Specific [place] >=1.030 Urine Protein 30 mg/dL (NEG-TRACE) Urine Glucose (UA) Negative mg/dL (NEG) Urine Ketones (Stick) Negative mg/dL (NEG) Urine Blood Negative (NEG) Urine Nitrite Negative (NEG) Urine Bilirubin Small (NEG) Urine Urobilinogen Dipstick 1.0 mg/dL (0.2 mg/dL) Urine Leukocyte Esterase Negative (NEG) Urine RBC Rare /HPF (0-2) Urine WBC 1-4 /HPF (0-4) Urine Squamous Epithelial Cells Occ /LPF Urine Bacteria Few /HPF (0-FEW) Urine Hyaline Casts Few /HPF Urine Mucus Marked /LPF Glucose (Fingerstick) 161 mg/dL (70-99) 212 mg/dL (70-99) Test 11/28/18 21:27 11/29/18 07:54 Glucose (Fingerstick) 202 mg/dL (70-99) 161 mg/dL (70-99) Physical Exam HEENT: Neck Supple W Full Motion Chest: Symmetric LUNGS: Other (diminished bases) Heart: S1S2 Abdomen: Other (ascites, anasarca) Extremities: Other (2+ bilateral LE pitting edema to thigh level ) Neurology: alert, oriented, follow commands Assessment Assessment 1 Dyspnea secondary to large left pleural effusion; improved s/p thoracentesis 2. Mild acute on chronic diastolic HF; BNP mildly elevated, but insignificant based upon age adjustment. Echo with preserved LV systolic function 3. Chronic lymphedema 4. Anasarca; ? liver disease. CT abd/pelvis without significant acute findings 5. Hypertension; mildly hypotensive following thoracentesis 6. CAD, nonobstructive. MPI 2017 without any evidence of ischemia. CP free. 7. Hyperlipidemia; statin 8. Diabetes, II;as per PCP 10. Hypothyroidism 11. Protein calorie malnutrition Recommendations Agree with GI consult Diuresis as able. Supportive care SABINO CLEMENTE APRN November 29, 2018 09:42
--- NOTE | 2018-11-29 10:00 | PDOC2 ---
GI CONSULT Reason For Consult: Anasarca, ?hepatic HPI: HPI: 73 y/o male w/ swelling for about 1 year - worsening - first in feet and legs, then abdomen and arms and hands. Nenita helps with history. Here w/ SOA, pleural effusions on imaging (L<R), now s/p thoracentesis. Imaging also notes mesenteric edema, small ascites, and anasarca. Cardiology following - mild acute on chronic heart failure and echo okay - thoughts are that swelling unlikely related to cardiac issue. 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 Admits to some decreased appetite. No dysphagia, n/v, abd pain, constipation, or bleeding. Occasionally has loose stools. S/p Fede-en-Y at [facility] ~2 years ago - initially lost ~100 pounds but maybe has gained some weight since, they wonder if related to fluid. They recall no previous EGD but say he had a colonoscopy w/ Dr. Holm last year. No GB, liver, pancreas, or PUD history. When he was younger, he'd occasionally "binge drink" with his friends after playing softball - his says never enough to be concerning. Now has about 1 beer a day. No NSAIDs. PMH: PMH: CAD, CHF, HTN, HLD, lymphedema, CLINT, COPD, GERD, Gorlin syndrome, OA, CKD, DM, BCC bilateral TKR, Fede-en-Y, fissurectomy FH: Family History: No pertinent hx (denies GI cancers or liver disease) Social History: ALCOHOL: other (1 beer daily) Drugs: None ROS: GEN: Denies fevers, chills, sweats HEENT: Denies blurred vision, sore throat CV: Denies chest pain RESP: +SOA GI: Per HPI : Denies hematuria, dysuria ENDO: ?weight loss NEURO: Denies confusion, dizziness MSK: +swelling SKIN: Denies jaundice, pruritus Vitals: Vitals: Vital Signs Date Time Temp Pulse Resp B/P (MAP) Pulse Ox O2 Delivery O2 Flow Rate FiO2 11/29/18 06:55 97.5 62 17 109/69 (82) 93 Nasal Cannula 12.0 97.5 Labs: Labs: Laboratory Tests Test 11/28/18 10:15 11/28/18 11:08 11/28/18 12:03 11/28/18 16:54 Body Fluid pH 7.56 Urine Collection Type Unknown Urine Color Kady Urine Clarity Clear Urine pH 5.5 Urine Specific [place] >=1.030 Urine Protein 30 mg/dL (NEG-TRACE) Urine Glucose (UA) Negative mg/dL (NEG) Urine Ketones (Stick) Negative mg/dL (NEG) Urine Blood Negative (NEG) Urine Nitrite Negative (NEG) Urine Bilirubin Small (NEG) Urine Urobilinogen Dipstick 1.0 mg/dL (0.2 mg/dL) Urine Leukocyte Esterase Negative (NEG) Urine RBC Rare /HPF (0-2) Urine WBC 1-4 /HPF (0-4) Urine Squamous Epithelial Cells Occ /LPF Urine Bacteria Few /HPF (0-FEW) Urine Hyaline Casts Few /HPF Urine Mucus Marked /LPF Glucose (Fingerstick) 161 mg/dL (70-99) 212 mg/dL (70-99) Test 11/28/18 21:27 11/29/18 07:54 Glucose (Fingerstick) 202 mg/dL (70-99) 161 mg/dL (70-99) Allergies: Coded Allergies: No Known Drug Allergies (Unverified , 11/23/16) Medications: Current Medications Medications (Trade) Dose Ordered Sig/Meghana Route PRN Reason Start Time Stop Time Status Last Admin Dose Admin Atorvastatin Calcium (Lipitor) 40 mg QHS PO 11/28/18 21:00 11/28/18 21:01 Carvedilol (Coreg) 12.5 mg BIDWMEALS PO 11/28/18 10:00 11/28/18 09:52 Nystatin (Nystop) 1 riley BID TP 11/28/18 10:00 11/28/18 21:01 Potassium Chloride (Klor-Con) 10 meq BID PO 11/28/18 10:00 11/28/18 21:01 Tamsulosin HCl (Flomax) 0.4 mg DAILY PO 11/28/18 10:00 11/28/18 09:49 Insulin Glargine (Lantus) 14 units QHS SQ 11/28/18 21:00 11/28/18 21:33 Pantoprazole Sodium (Protonix) 40 mg DAILYAC PO 11/28/18 10:00 11/28/18 09:49 Fluoxetine HCl (PROzac) 10 mg DAILY PO 11/28/18 10:00 11/28/18 09:50 Furosemide (Lasix) 40 mg BID92 IVP 11/28/18 10:00 11/28/18 18:18 Spironolactone (Aldactone) 50 mg DAILY PO 11/28/18 10:00 11/28/18 09:50 Imaging: Imaging: CT C/A/P IMPRESSION: 1. Large left pleural effusion with underlying left lower lobe atelectasis and partial left upper lobe atelectasis. 2. Moderate sized right pleural effusion with partial right lower lobe atelectasis. 3. Stable small right middle lobe pulmonary nodule. 4. Calcific plaquing the aorta and coronary arteries. IMPRESSION: 1. Mesenteric edema with a small volume of ascites. 2. Anasarca. PE: GEN: NAD HEENT: Atraumatic, PERRL LUNGS: NC 12L HEART: RRR ABD: large, edema bilaterally - some superficial firmness and pitting EXTREMITY/SKIN: BLE wrapped, R>L UE edema NEURO/PSYCH: A & O 3 A/P: A/P: Pleural effusions, mild heart failure, COPD, chronic lymphedema, anasarca - s/p thoracentesis on spironolactone and furosemide Hypoalbuminemia, mildly elevated AST and AP (also noted in the past) Decreased appetite, s/p Fede-en-Y, ?GERD CRC screen, h/o polyps - UTD Daily alcohol use -- Awaiting records from our office. Reviewed w/ Dr. Holm - ?malabsorption - checking additional labs. ?additional liver imaging Reviewed office records: Colonoscopy 03/2012 for h/o polyps showed distal sigmoid diverticulosis and internal hemorrhoids. Colonoscopy 07/2017 for screening, h/o polyps showed 3, hyperplastic polyp in sigmoid, sigmoid diverticulosis, internal hemorrhoids, and normal mucosa throughout whole colon. GENA COBB November 29, 2018 10:00
[2018-11-29 10:29] VITALS: BP 127/79
[2018-11-29 10:35] LABS: CALCIUM 8.3 mg/dL (8.5-10.1); GFR 73.5
[2018-11-29 10:36] LABS: CHOLESTEROL/HDL RATIO 3.5
[2018-11-29] MEDS: PANTOPRAZOLE 40 MG TABLET.DR. PO SCH (10:48)
[2018-11-29] MEDS: CARVEDILOL 12.5 MG TABLET. PO SCH ×2 (10:49→16:30)
[2018-11-29] MEDS: SPIRONOLACTONE 25 MG TABLET PO SCH (10:49)
[2018-11-29] MEDS: TAMSULOSIN 0.4 MG CAP.ER.24H. PO SCH (10:49)
[2018-11-29] MEDS: NYSTATIN TOPICAL POWDER 15GM BOTTLE. TP SCH ×2 (10:50→21:00)
[2018-11-29] MEDS: FLUoxetine HCL 10 MG CAPSULE PO SCH (10:50)
[2018-11-29] MEDS: POTASSIUM CHLORIDE 10 MEQ TABLET.ER. PO SCH ×2 (10:50→20:46)
[2018-11-29] MEDS: FUROSEMIDE 40 MG/4 ML VIAL. IVP SCH ×2 (10:51→16:29)
--- NOTE | 2018-11-29 11:38 | NUR ---
Sutherland catheter inserted successfully, with assistance of CASSY Muñoz. However, once sutherland in place, pt began urinating and pushing, and urine flowed around catheter, to the extent that there was a noticeable stream. Pt advised not to push, sutherland left in place for collection. Approximately 600 out in bag, roughly 200mL lost to brief. Pt changed, BM smear cleaned and pt changed. Monitor sutherland for leakage.
--- NOTE | 2018-11-29 11:40 | NUR ---
24-hour urine collection begun at 11:30, with insertion of sutherland catheter.
[2018-11-29 15:10] VITALS: BP 95/52
--- NOTE | 2018-11-29 16:16 | NUR ---
SW following pt. PT/OT recommends SNU. Spoke with pt and in room and both declined SNU. agreeable with Home health but pt currently refusing home health as well. SW will follow up with in the morning.
[2018-11-29 19:05] VITALS: BP 91/58
[2018-11-29] MEDS: ATORVASTATIN CALCIUM 40 MG TABLET. PO SCH (20:47)
[2018-11-29] MEDS: INSULIN GLARGINE 300 UNITS/3 ML INSULN.PEN. SQ SCH (21:00)
[2018-11-29] MEDS ORDERED: CYCLOBENZAPRINE 10 MG TABLET. PO PRN (23:00)
[2018-11-29 23:10] VITALS: BP 93/59
[2018-11-29] MEDS: ACETAMINOPHEN 325 MG TABLET. PO PRN (23:21)
[2018-11-30 03:05] VITALS: BP 101/60
[2018-11-30 07:10] VITALS: BP 101/62
[2018-11-30 07:56] LABS: CALCIUM 8.2 mg/dL (8.5-10.1); CREATININE 1.1 mg/dL (0.7-1.3); GFR 65.8
--- NOTE | 2018-11-30 08:25 | PDOC ---
Provider Note Provider Note [id number] VANDANA FROST MD November 30, 2018 08:25
[2018-11-30] MEDS: SPIRONOLACTONE 25 MG TABLET PO SCH (08:37)
[2018-11-30] MEDS: TAMSULOSIN 0.4 MG CAP.ER.24H. PO SCH (08:37)
[2018-11-30] MEDS: PANTOPRAZOLE 40 MG TABLET.DR. PO SCH (08:37)
[2018-11-30] MEDS: POTASSIUM CHLORIDE 10 MEQ TABLET.ER. PO SCH (08:37)
[2018-11-30] MEDS: NYSTATIN TOPICAL POWDER 15GM BOTTLE. TP SCH (08:39)
[2018-11-30] MEDS: CARVEDILOL 12.5 MG TABLET. PO SCH (08:44)
[2018-11-30] MEDS: ACETAMINOPHEN 325 MG TABLET. PO PRN (08:45)
--- NOTE | 2018-11-30 09:42 | PDOC ---
PULMONARY PROGRESS NOTES Subjective PT LESS SOA AFTER THORACENTESIS Vitals Vital Signs Date Time Temp Pulse Resp B/P (MAP) Pulse Ox O2 Delivery O2 Flow Rate FiO2 11/30/18 08:44 74 101/62 11/30/18 07:10 98.1 18 95 Room Air 98.1 11/29/18 15:10 12.0 ROS: No Nausea, No Chest Pain, No Abdominal Pain, No Increase Cough General: Alert Lungs: Clear Cardiovascular: S1, S2 Abdomen: Soft Neuro Exam: Alert Extremities: No Edema Skin: Warm Labs Laboratory Tests Test 11/28/18 10:15 11/28/18 11:08 11/28/18 12:03 11/28/18 16:54 Body Fluid pH 7.56 Body Fluid Total Protein 1.9 g/dL (.) Body Fluid Lactate Dehydrogenase 439 IU/L (.) Urine Collection Type Unknown Urine Color Kady Urine Clarity Clear Urine pH 5.5 Urine Specific Vernon >=1.030 Urine Protein 30 mg/dL (NEG-TRACE) Urine Glucose (UA) Negative mg/dL (NEG) Urine Ketones (Stick) Negative mg/dL (NEG) Urine Blood Negative (NEG) Urine Nitrite Negative (NEG) Urine Bilirubin Small (NEG) Urine Urobilinogen Dipstick 1.0 mg/dL (0.2 mg/dL) Urine Leukocyte Esterase Negative (NEG) Urine RBC Rare /HPF (0-2) Urine WBC 1-4 /HPF (0-4) Urine Squamous Epithelial Cells Occ /LPF Urine Bacteria Few /HPF (0-FEW) Urine Hyaline Casts Few /HPF Urine Mucus Marked /LPF Glucose (Fingerstick) 161 mg/dL (70-99) 212 mg/dL (70-99) Test 11/28/18 21:27 11/29/18 07:54 11/29/18 09:25 11/29/18 11:26 Glucose (Fingerstick) 202 mg/dL (70-99) 161 mg/dL (70-99) 183 mg/dL (70-99) Sodium Level 143 mmol/L (136-145) Potassium Level 4.0 mmol/L (3.5-5.1) Chloride Level 109 mmol/L (98-107) Carbon Dioxide Level 26 mmol/L (21-32) Anion Gap 8 (6-14) Blood Urea Nitrogen 28 mg/dL (8-26) Creatinine 1.0 mg/dL (0.7-1.3) Estimated GFR (Cockcroft-Gault) 73.5 Glucose Level 187 mg/dL (70-99) Calcium Level 8.3 mg/dL (8.5-10.1) Prealbumin 14.7 mg/dL (16.0-42.0) Triglycerides Level 67 mg/dL (0-150) Cholesterol Level 138 mg/dL (0-200) LDL Cholesterol, Calculated 85 mg/dL (0-100) VLDL Cholesterol, Calculated 13 mg/dL (0-40) Non-HDL Cholesterol Calculated 98 mg/dL (0-129) HDL Cholesterol 40 mg/dL (40-60) Cholesterol/HDL Ratio 3.5 Vitamin B12 Level 478 pg/mL (247-911) Free Thyroxine 0.87 ng/dL (0.76-1.46) Test 11/29/18 16:45 11/29/18 17:10 11/29/18 20:55 11/30/18 06:30 Ammonia 19 mcmol/L (11-34) Glucose (Fingerstick) 176 mg/dL (70-99) 203 mg/dL (70-99) Sodium Level 139 mmol/L (136-145) Potassium Level 4.0 mmol/L (3.5-5.1) Chloride Level 105 mmol/L (98-107) Carbon Dioxide Level 27 mmol/L (21-32) Anion Gap 7 (6-14) Blood Urea Nitrogen 34 mg/dL (8-26) Creatinine 1.1 mg/dL (0.7-1.3) Estimated GFR (Cockcroft-Gault) 65.8 Glucose Level 137 mg/dL (70-99) Calcium Level 8.2 mg/dL (8.5-10.1) Test 11/30/18 07:13 Glucose (Fingerstick) 118 mg/dL (70-99) Laboratory Tests Test 11/29/18 11:26 11/29/18 16:45 11/29/18 17:10 11/29/18 20:55 Glucose (Fingerstick) 183 mg/dL (70-99) 176 mg/dL (70-99) 203 mg/dL (70-99) Ammonia 19 mcmol/L (11-34) Test 11/30/18 06:30 11/30/18 07:13 Sodium Level 139 mmol/L (136-145) Potassium Level 4.0 mmol/L (3.5-5.1) Chloride Level 105 mmol/L (98-107) Carbon Dioxide Level 27 mmol/L (21-32) Anion Gap 7 (6-14) Blood Urea Nitrogen 34 mg/dL (8-26) Creatinine 1.1 mg/dL (0.7-1.3) Estimated GFR (Cockcroft-Gault) 65.8 Glucose Level 137 mg/dL (70-99) Calcium Level 8.2 mg/dL (8.5-10.1) Glucose (Fingerstick) 118 mg/dL (70-99) Medications Active Scripts Medications Dose Route/Sig Max Daily Dose Days Date Category Nystop (Nystatin) 60 Gm Powder 60 Gm TP BID 10/09/18 Reported Carvedilol (Carvedilol) 12.5 Mg Tablet 12.5 Mg PO BIDWMEALS 09/28/18 Reported Protonix (Pantoprazole Sodium) 20 Mg Tablet. 2 Tab PO DAILY 09/28/18 Reported Furosemide 40 Mg Tablet 1 Tab PO DAILY 09/28/18 Reported Klor-Con M10 (Potassium Chloride) 10 Meq Tab.er.prt 1 Tab PO BID 09/28/18 Reported Lantus Solostar (Insulin Glargine,Hum.rec.anlog) 100 Unit/1 Ml Insuln.pen 24 Unit SQ QHS 09/28/18 Reported Atorvastatin Calcium 40 Mg Tablet 1 Tab PO QHS 01/25/17 Reported Impression . IMPRESSION: 1. Progressive dyspnea, multifactorial. 2. Acute on chronic diastolic and systolic heart failure. 3. Acute cor pulmonale. 4. Status post bariatric surgery. 5. Obesity. 6. Chronic lymphedema. 7. Abnormal x-ray. 8. Chronic obstructive pulmonary disease, unknown FEV1. 9. Tobacco dependence, in remission. 10 Transudate effusion Plan . CORRECTION PROGNOSIS IS POOR MAY NEED SNU EVALUATION WILL DEFER TO DR FROST CT REVIEWED THORACENTESIS DONE REMOVE 1.6 LITERS LAKSHMI CHAUDHARY MD November 30, 2018 09:42
--- NOTE | 2018-11-30 10:19 | PDOC ---
Subjective: Subjective: Plans to DC today. says he likes carbs but has a harder time eating protein. Objective: Vital Signs: Vital Signs Date Time Temp Pulse Resp B/P (MAP) Pulse Ox O2 Delivery O2 Flow Rate FiO2 11/30/18 08:44 74 101/62 11/30/18 07:10 98.1 18 95 Room Air 98.1 11/29/18 15:10 12.0 Labs: Laboratory Tests Test 11/29/18 11:26 11/29/18 16:45 11/29/18 17:10 11/29/18 20:55 Glucose (Fingerstick) 183 mg/dL 176 mg/dL 203 mg/dL Ammonia 19 mcmol/L Test 11/30/18 06:30 11/30/18 07:13 Sodium Level 139 mmol/L Potassium Level 4.0 mmol/L Chloride Level 105 mmol/L Carbon Dioxide Level 27 mmol/L Anion Gap 7 Blood Urea Nitrogen 34 mg/dL Creatinine 1.1 mg/dL Estimated GFR (Cockcroft-Gault) 65.8 Glucose Level 137 mg/dL Calcium Level 8.2 mg/dL Glucose (Fingerstick) 118 mg/dL ANAEROBIC-AEROBIC CULTURE PENDING ANAEROBIC RES 1 PENDING AEROBIC CULT PENDING AEROBIC RES 1 PENDING GRAM STAIN Final Final report GRAM STAIN RES 1 Final Comment No white blood cells seen. GRAM STAIN RES 2 Final No organisms seen PE: GEN: NAD - swishing mouth out w/ mouthwash, keeps eyes closed, indicates to he doesn't have questions for me LUNGS: room air ABD: dependent fluid lateral abd as yesterday EXTREMITY: less edematous in upper extrem, BLE edema ongoing/wrapped NEURO/PSYCH: awake/alert A/P: Peripheral edema/anasarca -pleural effusions s/p thoracentesis, mild CHF, on PO diuretcis S/p Fede-en-Y, ?malabsorption vs liver disease -- Low pre-albumin, dietary following, has DC orders. Will review follow-up recs w/ Dr. Holm - our office can arrange. GENA COBB November 30, 2018 10:19
[2018-11-30 11:00] VITALS: BP 92/54
--- NOTE | 2018-11-30 14:05 | DS ---
DATE OF DISCHARGE: 11/30/2018 HOSPITAL SUMMARY: A 73-year-old white male, admitted with increasing anasarca and a large left pleural effusion, larger than x-rays [address] scan showed bilateral effusions, left greater than right, but no masses were seen. After thoracentesis, the fluid was low and albumin at 1.9. PH was high at 7.56, and Gram stain and cultures showed no white cells or organisms and no growth so far. X-ray was improved to some degree in the left side after thoracentesis of 1800 mL. Albumin was low at 2.4. TSH borderline elevated, but T4 was normal. B12 was normal, as was the CBC and chemistry profile otherwise. Urine showed only minimal protein in a 24-hour urine for protein. Total protein is pending at this time. He was diuresed with IV Lasix and oral spironolactone was added for additional benefit. GI and cardiac consultations done. GI orders regarding possible malabsorption were put in, but he has not had stools yet to assist in that and the multiple myeloma screening labs are pending as well at this time.. He is comfortable to finish 24-hour urine and be followed as an outpatient for further diuresis. FINAL DIAGNOSES: 1. Anasarca secondary to low albumin, etiology undetermined. 2. Large left pleural effusion, transudative. OPERATIONS AND PROCEDURES: Diagnostic and therapeutic thoracentesis. COMPLICATIONS: None. CONSULTATIONS: Dr. Natarajan, Dr. Simpson, Dr. Cavazos. DISPOSITION: Increase Lasix to 40 mg twice a day. We will add spironolactone 50 mg daily for potassium sparing benefit and follow up in the office in 1 week and follow his weights. We will follow albumin. High protein, low salt intake was encouraged and further GI evaluation as indicated. VANDANA FROST MD DR: ROSA M/starla JOB#: [id number] / [id number]
--- NOTE | 2018-11-30 15:00 | NUR ---
Sutherland catheter removed at 1430, no complaints of pain. Urine, yellow, clear, sutherland catheter tip intact. Patient and his educated about observing spontaneous voiding in 6 hours, verbalized understanding.
--- NOTE | 2018-11-30 16:15 | NUR ---
Discharge Note: VERONICA BONILLA [address] Discharge instructions and discharge home medications reviewed with patient and patient's and a copy given. All questions have been answered and understanding verbalized. The following instructions and handouts were given: Pleural effusion and albumin test handout. FF up with Dr. Almanzar on December 20 9:15am FF up with PCP in a week. Wound care instructions: change dressing every other day and as needed, clinic ff up. Discontinued lines and drains: sutherland cather intact, peripheral IV intact. The patient tolerated removal, no complications noted. Patient discharged to home via wheelchair accompanied by his at 1535.
[2018-11-30 22:10] LABS: UR PROTEIN 10.3 mg/dL (Not Estab.)
[2018-12-05 13:14] LABS: KAPPA FREE 46.8 mg/L (3.3-19.4); KAPPA LAMBDA RATIO 1.52 (0.26-1.65); LAMBDA FREE 30.8 mg/L (5.7-26.3)
[2018-12-05 16:12] LABS: ALBUM 2.5 g/dL (2.9-4.4); ALPHA 1 0.3 g/dL (0.0-0.4); ALPHA 2 0.8 g/dL (0.4-1.0); GAMMA 1.1 g/dL (0.4-1.8); PROTEIN TOTAL 5.7 g/dL (6.0-8.5); SPEP AG RATIO 0.8 (0.7-1.7)
== END 2018-11-30 15:35 | disposition home or self-care (01) | DRG 291 ==
LOC: ER 13:52 → 6 SOUTH 14:32
PROVIDERS: ADMIT Family Medicine; ATTEND Family Medicine
PROC: 0W9B3ZZ Drainage of Left Pleural Cavity, Percutaneous Approach (ICD-10-PCS; principal; 2018-11-27)
DX: I13.0 Hypertensive heart and chronic kidney disease with heart failure and stage 1 through stage 4 chronic kidney disease, or unspecified chronic kidney disease (principal); I26.09 Other pulmonary embolism with acute cor pulmonale; I50.43 Acute on chronic combined systolic (congestive) and diastolic (congestive) heart failure; J91.8 Pleural effusion in other conditions classified elsewhere; E46 Unspecified protein-calorie malnutrition; J44.9 Chronic obstructive pulmonary disease, unspecified; E03.9 Hypothyroidism, unspecified; E11.22 Type 2 diabetes mellitus with diabetic chronic kidney disease; E66.9 Obesity, unspecified; E78.00 Pure hypercholesterolemia, unspecified; E78.5 Hyperlipidemia, unspecified; F17.201 Nicotine dependence, unspecified, in remission; G47.33 Obstructive sleep apnea (adult) (pediatric); I25.10 Atherosclerotic heart disease of native coronary artery without angina pectoris; I89.0 Lymphedema, not elsewhere classified; K21.9 Gastro-esophageal reflux disease without esophagitis; M19.90 Unspecified osteoarthritis, unspecified site; I95.9 Hypotension, unspecified; N18.9 Chronic kidney disease, unspecified; Z82.49 Family history of ischemic heart disease and other diseases of the circulatory system; Z68.30 Body mass index [BMI] 30.0-30.9, adult; Z85.828 Personal history of other malignant neoplasm of skin; Z96.653 Presence of artificial knee joint, bilateral; Z98.84 Bariatric surgery status
CPT/HCPCS: 32555; 36415; 71045; 71250; 74177; 80048; 80053; 80061; 81001; 82140; 82550; 82607; 82962; 83520; 83615; 83880; 83986; 84134; 84156; 84157; 84165; 84439; 84443; 84484; 85025; 85610; 85651; 87071; 87075; 88112; 88305; 88341; 88342; 93005; 93306; J1815; J1940; Q9967; 97110; 97530; 99285-25